=== PATIENT | female | born 1950 | race Two or more races ===

== ENCOUNTER 2025-02-05 22:22 | Observation (INO) | payer MEDICARE, SELFPAY ==
--- OUTSIDE RECORDS SUMMARY | 2024-11-10 13:45 | XMS_ITS ---
Author Organization [facility] Address [address] [place], [place] [address] Care Team Providers Care Tissue Rewinder Name Role Phone Lisa Mercado Primary Care Provider [phone] Araceli, Tess Unavailable [phone] REASON FOR VISIT HTN, HLD Social History Sex Assigned At : Social History Observation Description Sex Assigned At Female Encounters Encounter Location Date Provider Diagnosis Main [address] [place], [place] [id number] 11/10/2024 Lisa Mercado Plan Of Treatment No Information Progress Notes * Mary Lou DORSEYDOB:0 1950 (75 yo F)Acc No.[id number]:11/10/2024 Medical Note Patient: Rosa KHAN Mary Lou NUNEZ Provider: Annelise Mercado MD :1950 A ge:74 Y S ex:Female Date:11/10/2024 Address:[address] [place], [place] [address] Subjective: * Chief Complaints: * 1 . HTN, HLD. * Medical History: Objective: * Vitals: Assessment: Plan: * Treatment: * Billing Information: * Visit Code: * Procedure Codes: * Electronic signature of Jay Mercado MD on 02/06/2025 at 02:00 PM EDT Sign off status: Pending * Provider: Annelise Mercado MD Date: 0 11/10/2024 Generated for Emily winter/Sinai/Vickie on: 0 02/06/2025 02:00 PM EDT
--- OUTSIDE RECORDS SUMMARY | 2025-01-21 12:00 | XMS_ITS | Encounter Summary ---
Author Organization [facility] Address [address] [place] [address] Care Team Providers Care Continuous Miner Name Role Phone Lin Vega MD Unavailable Rosmery Hernandez DO Primary Care Provider [phone] Reason for Visit * Rehabilitation - Outpatient (Routine) - Authorized Specialty Diagnoses / Procedures Referred By Isidro cortez Referred To Contact Physical Therapy Diagnoses Primary osteoarthritis of left knee Procedures [place] OFFICE/OUTPATIENT [facility] MDM 60 MINUTES Hunter Winters, PORTABLE MACHINE CUTTER [address] [place] [address] Phone: tel: fax: Antonette Li, PT [address] [facility] [address] [place] [address] Phone: tel: fax: Referral ID Status Reason Start Date Expiration Date Visits Requested Visits Authorized [id number] Authorized Specialty Services Required 12/08/2024 07/08/2025 99 99 Encounter Details Date Type Department Care Team (Latest Contact Info) Description 01/21/2025 12:00 PM EDT Clinical Support SERJIO Cortes Physical Therapy Home Health [address] [facility] [address] [place] [address] Antonette Li, PT [address] [facility] [address] [place] [address] Primary osteoarthritis of left knee (Primary Dx); Acute postoperative pain of left knee; Status post left knee replacement Social History Tobacco Use Types Packs/Day Years Used Date Smoking Tobacco: Never Smokeless Tobacco: Never Alcohol Use Standard Drinks/Week Comments Not Currently 0 (1 standard drink = 0.6 oz pur e alcohol) Comments Unknown Sex and Gender Information Value Date Recorded Sex Assigned at Not on file Legal Sex Female 8:25 PM EDT Gender Identity Not on file Sexual Orientation Not on file documented as of this encounter Progress Notes * Antonette Li, PT - 01/21/2025 12:00 PM EDT Physical Therapy Physical Therapy Daily Visit Patient Name: Mary Lou Russell Today's Date: 01/21/2025 Subjective Current Problem: s/p left TKA with pain and difficulty walking. Pt is being seen today for follow up visit for s/p left TKA. Date of Surgery: 01/05/25 with three night stay. Current deficits: Difficulty with all mobility secondary to recent left TKA and pain. Visit Number 5 Time In: 11:50 am; Time out: 12:45 pm Total time: 55 minutes 45773 TherEx x 30 minutes 99703 gait training x 25 minutes Precautions: WBAT left LE; left TKA protocol Pain Management: The patient is complaining of pain located in the left knee and thigh region. Painrating 5/10. The pain is improved by ice and medication 1 every 6 hours of percocet and Tylenol as needed. The pain is aggravated by activity. The pain is described as aching, throbbing and stiffness. Prior level of function: Ambulation: antalgic gait pattern on left LE. Assistive devices: FWW,, raised toilet seat ADL and IADL: Independent. Home Environment: Pt lives with her family in a 2 level home with 5-6 steps to enter with railing. Family assisting as needed. Staying on first floor during recovery. Has walk in shower. 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 Joint play: hypomobile. Manual muscle testing: Left knee flexion/extension: 3-/5. Palpation: Minimal warmth upon palpation,consistent with post-operative conditions. Surgical incision intact with alex; dressing removed and inspected with no drainage on dressing. New island dressing applied. Assisted with TEDS on. Special tests: Negative Nazia Sign. Functional Mobility: Bed Mobility: SBA Sit to Stand: SBA Stair Negotiation: CGA/SBA Ambulation: Patient is ambulating with mild antalgic type pattern with FWW, uneven reciprocal gait pattern; good heel to toe gait pattern; SBA. Pt ambulated approx 200' x 2 with slow colette. Limitedknee flexion during swing phase. Tinetti Gait and Balance Assessment: Sitting balance: Steady, safe = 1. Rises from chair: use of hands= 1. Attempts to rise: needed a few trials= 1. Immediate standing balance (first 5 seconds): Steady but uses walker or other support = 1. Standing balance: Steady but uses walker or other support = 1. Nudged: Staggers, grabs, catches self = 1. Eyes closed: Steady = 1. Turning 360 degrees: Discontinuous steps = 0 , Unsteady (grabs, staggers) = 0. Sitting down: Uses arms or not a smooth motion = 1. Balance Score: 8/16. Indication of gait: No hesitancy = 1. Step of length and height: Step to = 0. Foot clearance: L foot clears floor = 1 , R foot clears floor = 1. Step symmetry: Right and left step length no equal = 0. Step continuity: Stopping or discontinuity between steps = 0. Path: Mild/moderate deviation or uses w/ aid = 1. Trunk: No sway but flex knees or back or uses arms for stability = 1. Walking time: Heels apart = 0. Gait score: /12. Total Score = Balance + Gait 13/28. Tinetti tool score: < = 18 High. Physical Education Intervention Physical Therapy Education: Pt was educated on the importance of cyrotherapy and elevation. Reviewed proper pillow placement under LE to maintain good extension. Stressed the importance also of ambulating at at least every other hour for 2-5 minutes duration and completion of HEP 2x/day. Patient was educated with regards to signs and symptoms to monitor with respect to blood clots and infection. Therapeutic Exercise : Pt completed left LE supine exercises of glut sets, quad sets, and ankle pumps (hourly) at this time, AAROM heel slides and hip abduction/adduction. Completed seated heel slides with plastic bag, 10x. Completed standing heel raises, left marches and hip abduction, and ham curls. Completed seated AAROM LAQ of 3 sets of 3 reps. Completed static knee extension on chair x 4 minutes. HEP reviewed and up dated Gait Training: Gait training this date with FWW with instruction for step to gait pattern for left affective LE with increase cues for heel to toe pattern and knee flexion during swing. Provided visual cues for trialing more reciprocal gait pattern; overall demonstrated with fair carryover; will continue to practice. Worked on stair climbing this date up/down stairs of home to second level were her bedroom is. Pt demonstrated CGA with cues with use of HR and step to gait pattern. Worked on walking with one handed support along kitchen counter; patient very hesitant but will continue to practice. Therapeutic Activity: Worked on proper sit to stand, stand to sit transfers this date from reclinerwith good carryover with SBA with verbal and visual cues for proper sequencing and hand placement. Worked on getting in/out of bed this date with visual and verbal cues; continues to need min A with left LE. Assessment & Plan Assessment Impairments: abnormal gait, abnormal or restricted ROM, impaired balance, impaired physical strength, pain with function and weight-bearing intolerance Barriers to therapy: Increased pain, edema,bruising and knee weakness. Prognosis: good Goals Short Term Goals Goal 1 : Patient will be independent with HEP with good compliance and independence. Goal 2 : Patient will demonstrate 5-90 degrees of passive range of motion of left knee flexion. Goal 3 : Patient will ambulate >6 minutes modified independently with wheeled walker with good reciprocal gait pattern. Goal 4 : Patient will demonstrate all sit< >stand transfers and supine< >sit bed mobility, modified independent with no cues for proper sequencing. Goal 5 : Patient will ascend/descend 6 steps with AD with supervision, step to gait pattern. Mcfp Goals Goal 1 : Patient will demonstrate 0-110 degrees or greater of active left knee flexion in order to improve indpendence with ambulation up and down steps. Goal 2 : Patient will demonstrate 4+/5 or better left knee strength in order to safely return to activities of interest. Goal 3 : Patient will ambulate community distances on even and uneven surfaces, independently with no AD, normalized gait pattern and < 1/10 report of pain in left knee. Goal 4 : Pt will ascend/descend 6-12 steps with railing with reciprical gait pattern independently. Goal 5 : Patient will demonstrate good static and dynamic standing balance for >15 mintues without LOB or increase in knee pain. Goal 6 : Pt will improve Tinetti Balance test to 28/28 to indicate no fall risk. Plan Planned modality interventions: cryotherapy Planned therapy interventions: bed mobility training, dressing changes, functional ROM exercises, gait training, home exercise program, manual therapy, neuromuscular re-education, soft tissue mobilization, strengthening, stretching, therapeutic activities and transfer training Frequency: 3x/week. Duration in weeks: 6 Treatment plan discussed with: patient Plan details: Educated to continue icing and elevating. Pt will continues to benefit from PT interventions to improve overall strength, ROM and functional mobility to achieve PLOF. documented in this encounter Plan of Treatment Upcoming Encounters Date Type Department Care Team (Late st Contact Info) Description 02/11/2025 10:00 AM EDT Treatment [place] [facility] [address] [place] [address] Tracy Villaseñor, JEWELL 02/13/2025 10:30 AM EDT Treatment [place] [address] [place] [address] Jerry Galvin, PT [address] [place] [address] 02/16/2025 10:30 AM EDT Treatment [place] [address] [place] [address] Jerry Galvin, PT [address] [place] [address] 02/16/2025 3:30 PM EDT Office Visit [facility] [address] [place] [address] Hunter Winters, PORTABLE MACHINE CUTTER [address] [place] [address] 02/19/2025 10:30 AM EDT Treatment [facility] [address] [place] [address] Christy Meléndez PTA documented as of this encounter Visit Diagnoses Diagnosis Primary osteoarthritis of left knee- Primary Acute postoperative pain of left knee Status post left knee replacement documented in this encounter Care Teams Continuous Miner Relationship Specialty Start Date End Date Rosmery Hernandez DO [address] [place], [place] [id number] PCP - General Family Medicine 08/14/23 Lin Vega MD [address] [place], [place] [id number] Referring Physician Family Medicine 08/14/23 documented as of this encounter
--- OUTSIDE RECORDS SUMMARY | 2025-01-21 12:00 | XMS_ITS | Encounter Summary ---
Author Organization [facility] Address [address] [place] [address] Care Team Providers Care Adjunct Phlebotomy Instructor Name Role Phone Lin Vega MD Unavailable Rosmery Hernandez DO Primary Care Provider [phone] Reason for Visit * Rehabilitation - Outpatient (Routine) - Authorized Specialty Diagnoses / Procedures Referred By Isidro cortez Referred To Contact Physical Therapy Diagnoses Primary osteoarthritis of left knee Procedures [place] OFFICE/OUTPATIENT [facility] MDM 60 MINUTES Hunter Winters, REFUELING RAMP ATTENDANT [address] [place] [address] Phone: tel: fax: Antonette Li, PT [address] [facility] [address] [place] [address] Phone: tel: fax: Referral ID Status Reason Start Date Expiration Date Visits Requested Visits Authorized [id number] Authorized Specialty Services Required 12/08/2024 07/08/2025 99 99 Encounter Details Date Type Department Care Team (Latest Contact Info) Description 01/21/2025 12:00 PM EDT Clinical Support SERJIO Cortes Physical Therapy Home Health [address] [facility] [address] [place] [address] Antonette Li, PT [address] [facility] [address] [place] [address] Primary osteoarthritis of left knee (Primary Dx); [...] out: 12:45 pm Total time: 55 minutes 87852 TherEx x 30 minutes 92812 gait training x 25 minutes Precautions: WBAT [...] shower. 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 Residential Goals Goal 1 : Patient will demonstrate [...] Info) Description 02/11/2025 10:00 AM EDT Treatment [place] [address] [place] [address] Tracy Villaseñor, JEWELL 02/13/2025 10:30 AM EDT Treatment [place] [address] [place] [address] Jerry Galvin, PT [address] [place] [address] 02/16/2025 10:30 AM EDT Treatment [place] [address] [place] [address] Jerry Galvin, PT [address] [place] [address] 02/16/2025 3:30 PM EDT Office Visit [facility]opa[facility] [address] [place] [address] Hunter Winters, REFUELING RAMP ATTENDANT [address] [place] [address] 02/19/2025 10:30 AM EDT Treatment [facility] [address] [place] [address] Christy Meléndez PTA documented as of this encounter Visit Diagnoses Diagnosis Primary osteoarthritis of left knee- Primary Acute postoperative pain of left knee Status post left knee replacement documented in this encounter Care Teams Adjunct Phlebotomy Instructor Relationship Specialty Start Date End Date Rosmery Hernandez DO [address] [place], [place] [phone] PCP - General Family Medicine 08/14/23 Lin Vega MD [address] [place], [place] [address] Referring Physician Family Medicine 08/14/23 documented as of this encounter
--- OUTSIDE RECORDS SUMMARY | 2025-01-23 10:00 | XMS_ITS | Encounter Summary ---
Author Organization [facility] Address [address] [place] [address] Care Team Providers Care Stamping Mill Tender Name Role Phone Lin Vega MD Unavailable Rosmery Hernandez DO Primary Care Provider [phone] Reason for Visit * Rehabilitation - Outpatient (Routine) - Authorized Specialty Diagnoses / Procedures Referred By Isidro cortez Referred To Contact Physical Therapy Diagnoses Primary osteoarthritis of left knee Procedures [place] OFFICE/OUTPATIENT [facility] MDM 60 MINUTES Hunter Winters, FURNACE LOADER [address] [place] [address] Phone: tel: fax: Antonette Li, PT [address] [facility] [address] [place] [address] Phone: tel: fax: Referral ID Status Reason Start Date Expiration Date Visits Requested Visits Authorized [id number] Authorized Specialty Services Required 12/08/2024 07/08/2025 99 99 Encounter Details Date Type Department Care Team (Latest Contact Info) Description 01/23/2025 10:00 AM EDT Clinical Support SERJIO Cortes Physical Therapy Home Health [address] [facility] [address] [place] [address] Antonette Li, PT [address] [facility] [address] [place] [address] Primary osteoarthritis of left knee (Primary Dx); [...] Progress Notes * Antonette Li, PT - 01/23/2025 10:00 AM EDT Physical Therapy Physical Therapy Daily Visit Patient Name: Mary Lou Russell Today's Date: 01/23/2025 Subjective Current Problem: s/p left TKA with pain and difficulty walking. Pt is being seen today for follow up visit for s/p left TKA. Date of Surgery: 01/05/25 with three night stay. Current deficits: Difficulty with all mobility secondary to recent left TKA and pain. Visit Number 7 Time In: 10:00 am; Time out: 10:45 am Total time: 45 minutes 08469 TherEx x 30 minutes 64026 gait training x 15 minutes Precautions: WBAT left LE; left TKA [...] shower. 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 Joint play: hypomobile. Manual muscle testing: Left knee flexion/extension: 3-/5. Palpation: Minimal warmth upon palpation,consistent with post-operative conditions. Surgical incision intact with sterile strips and open toair. Assisted with TEDS on. Special tests: Negative [...] time: Heels apart = 0. Gait score: 5/12. Total Score = Balance + Gait 13/28. [...] AD with supervision, step to gait pattern. [facility] Goals Goal 1 : Patient will demonstrate [...] Info) Description 02/11/2025 10:00 AM EDT Treatment [facility] [address] [place] [address] Tracy Villaseñor PTA 02/13/2025 10:30 AM EDT Treatment [facility] [address] [place] [address] Jerry Galvin, PT [address] [place] [address] 02/16/2025 10:30 AM EDT Treatment [facility] [address] [place] [address] Jerry Galvin, PT [address] [place] [address] 02/16/2025 3:30 PM EDT Office Visit [facility] [address] [place] [address] Hunter Winters, FURNACE LOADER [address] [place] [address] 02/19/2025 10:30 AM EDT [facility] [address] [place] [address] Christy Meléndez PTA documented as of this encounter Visit Diagnoses Diagnosis Primary osteoarthritis of left knee- Primary Acute postoperative pain of left knee Status post left knee replacement documented in this encounter Care Teams Stamping Mill Tender Relationship Specialty Start Date End Date Rosmery Hernandez DO [address] [place], [place] [phone] PCP - General Family Medicine 08/14/23 Lin Vega MD [address] [place], [place] [address] Referring Physician Family Medicine 08/14/23 documented as of this encounter
--- OUTSIDE RECORDS SUMMARY | 2025-01-23 10:00 | XMS_ITS | Encounter Summary ---
Author Organization [facility] Address [address] [place] [address] Care Team Providers Care Numberer And Wirer Name Role Phone Lin Vega MD Unavailable Rosmery Hernandez DO Primary Care Provider [phone] Reason for Visit * Rehabilitation - Outpatient (Routine) - Authorized Specialty Diagnoses / Procedures Referred By Isidro cortez Referred To Contact Physical Therapy Diagnoses Primary osteoarthritis of left knee Procedures CT OFFICE/OUTPATIENT [facility] MDM 60 MINUTES Hunter Winters, HOP GROWER [address] [place] [address] Phone: tel: fax: Antonette Li, PT [address] [facility] [address] [place] [address] Phone: tel: fax: Referral ID Status Reason Start Date Expiration Date Visits Requested Visits Authorized [id number] Authorized Specialty Services Required 12/08/2024 07/08/2025 99 99 Encounter Details Date Type Department Care Team (Latest Contact Info) Description 01/23/2025 10:00 AM EDT Clinical Support SERJIO Cortes Physical Therapy Home Health [address] [facility] [address] [place] [address] Antonette Li, PT [address] [facility] [address] [place] [address] Primary osteoarthritis of left knee (Primary Dx); [...] out: 10:45 am Total time: 45 minutes 43020 TherEx x 30 minutes 66102 gait training x 15 minutes Precautions: WBAT [...] shower. 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 Objective General Visit Information: Passive ROM: Left [...] Info) Description 02/11/2025 10:00 AM EDT Treatment [facility] [address] [place] [address] Tracy Villaseñor PTA 02/13/2025 10:30 AM EDT Treatment [facility] [address] [place] [address] Jerry Galvin, PT [address] [place] [address] 02/16/2025 10:30 AM EDT Treatment [facility] [address] [place] [address] Jerry Galvin, PT [address] [place] [address] 02/16/2025 3:30 PM EDT Office Visit [facility]opa[facility] [address] [place] [address] Hunter Winters, HOP GROWER [address] [place] [address] 02/19/2025 10:30 AM EDT [facility] [address] [place] [address] Christy Meléndez PTA documented as of this encounter Visit Diagnoses Diagnosis Primary osteoarthritis of left knee- Primary Acute postoperative pain of left knee Status post left knee replacement documented in this encounter Care Teams Numberer And Wirer Relationship Specialty Start Date End Date Rosmery Hernandez DO [address] [place], [place] [address] PCP - General Family Medicine 08/14/23 Lin Vega MD [address] [place], [place] [id number] Referring Physician Family Medicine 08/14/23 documented as of this encounter
--- OUTSIDE RECORDS SUMMARY | 2025-01-26 11:00 | XMS_ITS | Encounter Summary ---
Author Organization [facility] Address [address] [place] [address] Care Team Providers Care Carpentry Instructor Name Role Phone Lin Vega MD Unavailable Rosmery Hernandez DO Primary Care Provider [phone] Reason for Visit * Rehabilitation - Outpatient (Routine) - Authorized Specialty Diagnoses / Procedures Referred By Isidro cortez Referred To Contact Physical Therapy Diagnoses Primary osteoarthritis of left knee Procedures [place] OFFICE/OUTPATIENT [facility] MDM 60 MINUTES Hunter Winters, TECHNOLOGY STRATEGIST [address] [place] [address] Phone: tel: fax: Antonette Li, PT [address] [facility] [address] [place] [address] Phone: tel: fax: Referral ID Status Reason Start Date Expiration Date Visits Requested Visits Authorized [id number] Authorized Specialty Services Required 12/08/2024 07/08/2025 99 99 Encounter Details Date Type Department Care Team (Latest Contact Info) Description 01/26/2025 11:00 AM EDT Clinical Support SERJIO Cortes Physical Therapy Home Health [address] [facility] [address] [place] [address] Antonette Li, PT [address] [facility] [address] [place] [address] Primary osteoarthritis of left knee (Primary Dx); [...] Progress Notes * Antonette Li, PT - 01/26/2025 11:00 AM EDT Physical Therapy Physical Therapy Daily Visit Patient Name: Mary Lou Russell Today's Date: 01/26/2025 Subjective Current Problem: s/p left TKA with pain and difficulty walking. Pt is being seen today for follow up visit for s/p left TKA. Date of Surgery: 01/05/25 with three night stay. Current deficits: Difficulty with all mobility secondary to recent left TKA and pain. Visit Number 8 Time In: 11:00 am; Time out: 11:45 am Total time: 45 minutes 75391 TherEx x 30 minutes 39145 gait training x 15 minutes Precautions: WBAT left LE; left TKA protocol Pain Management: The patient is complaining of pain located in the left knee and thigh region. Painrating 5/10. The pain is improved by ice and medication 1 every 8 hours of percocet and Tylenol as needed. [...] shower. 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 Joint play: hypomobile. Manual muscle testing: Left knee flexion/extension: 3/5. Palpation: Minimal warmth upon palpation, consistent with post-operative conditions. Surgical incision intact with sterile strips and open to air. Assisted with TEDS on. Special tests: Negative Nazia Sign. Functional Mobility: Bed Mobility: SBA Sit to Stand: SBA Stair Negotiation: SBA Ambulation: Patient is ambulating with mild antalgic [...] carryover; will continue to practice. Worked on walking with one handed support along kitchen counter; patient less hesitant and noted more confident with reciprocal gait pattern. Therapeutic Activity: Worked on proper sit to stand, stand to sit transfers this date from reclinerwith good carryover with SBA with verbal and visual cues for proper sequencing and hand placement. Assessment & Plan Assessment Impairments: abnormal gait, [...] AD with supervision, step to gait pattern. Inspector Ball Points Goals Goal 1 : Patient will demonstrate [...] Info) Description 02/11/2025 10:00 AM EDT Treatment [facility] [address] [address] Tracy Villaseñor, JEWELL 02/13/2025 10:30 AM EDT Treatment [facility] [address] [place] [address] Jerry Galvin, PT [address] [facility] [place] [address] 02/16/2025 10:30 AM EDT Treatment [facility] [address] [place] [address] Jerry Galvin, PT [address] [facility] [place] [address] 02/16/2025 3:30 PM EDT Office Visit [facility] Orthopa[facility]ics [address] [place] [address] Hunter Winters, TECHNOLOGY STRATEGIST [address] [facility] [place] [address] 02/19/2025 10:30 AM EDT Treatment [facility] [address] [place] [address] Christy Meléndez, ANALOG IC DESIGN ARCHITECT documented as of this encounter Visit Diagnoses Diagnosis Primary osteoarthritis of left knee- Primary Acute postoperative pain of left knee Status post left knee replacement documented in this encounter Care Teams Carpentry Instructor Relationship Specialty Start Date End Date Rosmery Hernandez DO [address] [place], [place] [id number] PCP - General Family Medicine 08/14/23 Lin Vega MD [address] [place], [place] [id number] Referring Physician Family Medicine 08/14/23 documented as of this encounter
--- OUTSIDE RECORDS SUMMARY | 2025-01-26 11:00 | XMS_ITS | Encounter Summary ---
Author Organization [facility] Address [address] [place] [address] Care Team Providers Care Data Processing Mechanic Name Role Phone Lin Vega MD Unavailable Rosmery Hernandez DO Primary Care Provider [phone] Reason for Visit * Rehabilitation - Outpatient (Routine) - Authorized Specialty Diagnoses / Procedures Referred By Isidro cortez Referred To Contact Physical Therapy Diagnoses Primary osteoarthritis of left knee Procedures [place] OFFICE/OUTPATIENT [facility] MDM 60 MINUTES Hunter Winters, DATA ADMINISTRATOR [address] [place] [address] Phone: tel: fax: Antonette Li, PT [address] [facility] [address] [place] [address] Phone: tel: fax: Referral ID Status Reason Start Date Expiration Date Visits Requested Visits Authorized [id number] Authorized Specialty Services Required 12/08/2024 07/08/2025 99 99 Encounter Details Date Type Department Care Team (Latest Contact Info) Description 01/26/2025 11:00 AM EDT Clinical Support SERJIO Cortes Physical Therapy Home Health [address] [facility] 150 [place] [address] Antonette Li, PT [address] [facility] 150 [place] [address] Primary osteoarthritis of left knee (Primary Dx); [...] out: 11:45 am Total time: 45 minutes 85128 TherEx x 30 minutes 85534 gait training x 15 minutes Precautions: WBAT [...] shower. 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 Signing Agent Goals Goal 1 : Patient will demonstrate [...] Info) Description 02/11/2025 10:00 AM EDT Treatment [facility] [address] [facility] [place] [address] Tracy Villaseñor, JEWELL 02/13/2025 10:30 AM EDT Treatment [facility] [address] [facility] [place] [address] Jerry Galvin, PT [address] [facility] [place] [address] 02/16/2025 10:30 AM EDT Treatment [facility] [address] [facility] [place] [address] Jerry Galvin, PT [address] [place] [address] 02/16/2025 3:30 PM EDT Office Visit [facility] Orthopaedics [address] [facility] [place] [address] Hunter Winters, DATA ADMINISTRATOR [address] [facility] [place] [address] 02/19/2025 10:30 AM EDT Treatment [facility] [address] [place] [address] Christy Meléndez, DONOR SUPPORT TECHNICIAN documented as of this encounter Visit Diagnoses Diagnosis Primary osteoarthritis of left knee- Primary Acute postoperative pain of left knee Status post left knee replacement documented in this encounter Care Teams Data Processing Mechanic Relationship Specialty Start Date End Date Rosmery Hernandez DO [address] [place], [place] [id number] PCP - General Family Medicine 08/14/23 Lin Vega MD [address] [place], [place] [id number] Referring Physician Family Medicine 08/14/23 documented as of this encounter
--- OUTSIDE RECORDS SUMMARY | 2025-01-28 11:00 | XMS_ITS | Encounter Summary ---
Author Organization [facility] Address [address] [place] [address] Care Team Providers Care Technology Administrator Name Role Phone Lin Vega MD Unavailable Rosmery Hernandez DO Primary Care Provider [phone] Reason for Visit * Rehabilitation - Outpatient (Routine) - Authorized Specialty Diagnoses / Procedures Referred By Isidro cortez Referred To Contact Physical Therapy Diagnoses Primary osteoarthritis of left knee Procedures [place] OFFICE/OUTPATIENT [facility] MDM 60 MINUTES Hunter Winters, PARTY SUPPLY SPECIALIST [address] [place] [address] Phone: tel: fax: Antonette Li, PT [address] [facility] [address] [place] [address] Phone: tel: fax: Referral ID Status Reason Start Date Expiration Date Visits Requested Visits Authorized [id number] Authorized Specialty Services Required 12/08/2024 07/08/2025 99 99 Encounter Details Date Type Department Care Team (Latest Contact Info) Description 01/28/2025 11:00 AM EDT Clinical Support SERJIO Cortes Physical Therapy Home Health [address] [facility] 150 [place] [address] Antonette Li, PT [address] [facility] [address] [place] [address] Primary osteoarthritis of left knee (Primary Dx); [...] Progress Notes * Antonette Li, PT - 01/28/2025 11:00 AM EDT Physical Therapy Physical Therapy Daily Visit Patient Name: aMry Lou Russell Today's Date: 01/26/2025 Subjective Current Problem: s/p left TKA with pain and difficulty walking. Pt is being seen today for follow up visit for s/p left TKA. Date of Surgery: 01/05/25 with three night stay. Current deficits: Difficulty with all mobility secondary to recent left TKA and pain. Visit Number 9 Time In: 11:00 am; Time out: 11:45 am Total time: 45 minutes 88101 TherEx x 30 minutes 30052 gait training x 15 minutes Precautions: WBAT [...] shower. 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 Added floor bike x 3 minutes. HEP reviewed and updated. Gait Training: Gait training this date with [...] AD with supervision, step to gait pattern. Nursing Home Goals Goal 1 : Patient will demonstrate [...] Info) Description 02/11/2025 10:00 AM EDT Treatment [place] [address] [place] [address] Tracy Villaseñor, JEWELL 02/13/2025 10:30 AM EDT Treatment [facility] [address] [place] [address] Jerry Galvin, PT [address] [place] [address] 02/16/2025 10:30 AM EDT Treatment [facility] [address] [place] [address] Jerry Galvin, PT [address] [place] [address] 02/16/2025 3:30 PM EDT [facility] [address] [place] [address] Hunter Winters, PARTY SUPPLY SPECIALIST [address] [facility] [place] [address] 02/19/2025 10:30 AM EDT Treatment [place] [address] [place] [address] Christy Meléndez, PIE FILLER documented as of this encounter Visit Diagnoses Diagnosis Primary osteoarthritis of left knee- Primary Acute postoperative pain of left knee Status post left knee replacement documented in this encounter Care Teams Technology Administrator Relationship Specialty Start Date End Date Rosmery Hernandez DO [address] [place], [place] [phone] PCP - General Family Medicine 08/14/23 Lin Vega MD [address] [place], [place] [phone] Referring Physician Family Medicine 08/14/23 documented as of this encounter
--- OUTSIDE RECORDS SUMMARY | 2025-01-28 11:00 | XMS_ITS | Encounter Summary ---
Author Organization [facility] Address [address] [place] [address] Care Team Providers Care Electrical Troubleshooter Name Role Phone Lin Vega MD Unavailable Rosmery Hernandez DO Primary Care Provider [phone] Reason for Visit * Rehabilitation - Outpatient (Routine) - Authorized Specialty Diagnoses / Procedures Referred By Isidro cortez Referred To Contact Physical Therapy Diagnoses Primary osteoarthritis of left knee Procedures [place] OFFICE/OUTPATIENT [facility] MDM 60 MINUTES Hunter Winters, HUMAN RESOURCES ADVISOR [address] [place] [address] Phone: tel: fax: Antonette Li, PT [address] [facility] [address] [place] [address] Phone: tel: fax: Referral ID Status Reason Start Date Expiration Date Visits Requested Visits Authorized [id number] Authorized Specialty Services Required 12/08/2024 07/08/2025 99 99 Encounter Details Date Type Department Care Team (Latest Contact Info) Description 01/28/2025 11:00 AM EDT Clinical Support SERJIO Cortes Physical Therapy Home Health [address] [facility] 150 [place] [address] Antonette Li, PT [address] [facility] [address] [place] [address] Primary osteoarthritis of left knee (Primary Dx); [...] out: 11:45 am Total time: 45 minutes 66749 TherEx x 30 minutes 78863 gait training x 15 minutes Precautions: WBAT [...] shower. 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 [address] 02/16/2025 10:30 AM EDT Treatment [facility] [address] [place] [address] Jerry Galvin, PT [address] [place] [address] 02/16/2025 3:30 PM EDT Office Visit [facility] Orthopaedics [address] [place] [address] Hunter Winters, HUMAN RESOURCES ADVISOR [address] [facility] [place] [address] 02/19/2025 10:30 AM EDT Treatment [place] [address] [place] [address] Christy Meléndez, COST SPECIALIST documented as of this encounter Visit Diagnoses Diagnosis Primary osteoarthritis of left knee- Primary Acute postoperative pain of left knee Status post left knee replacement documented in this encounter Care Teams Electrical Troubleshooter Relationship Specialty Start Date End Date Rosmery Hernandez DO [address] [place], [place] [phone] PCP - General Family Medicine 08/14/23 Lin Vega MD [address] [place], [place] [address] Referring Physician Family Medicine 08/14/23 documented as of this encounter
--- OUTSIDE RECORDS SUMMARY | 2025-01-30 11:00 | XMS_ITS | Encounter Summary ---
Author Organization [facility] Address [address] [place] [address] Care Team Providers Care Mergers And Acquisitions Consultant Name Role Phone Lin Vega MD Unavailable Rosmery Hernandez DO Primary Care Provider [phone] Reason for Visit * Rehabilitation - Outpatient (Routine) - Authorized Specialty Diagnoses / Procedures Referred By Isidro cortez Referred To Contact Physical Therapy Diagnoses Primary osteoarthritis of left knee Procedures [place] OFFICE/OUTPATIENT [facility] MDM 60 MINUTES Hunter Winters, ROUTE SALES SPECIALIST [address] [place] [address] Phone: tel: fax: Antonette Li, PT [address] [facility] [address] [place] [address] Phone: tel: fax: Referral ID Status Reason Start Date Expiration Date Visits Requested Visits Authorized [id number] Authorized Specialty Services Required 12/08/2024 07/08/2025 99 99 Encounter Details Date Type Department Care Team (Latest Contact Info) Description 01/30/2025 11:00 AM EDT Clinical Support SERJIO Cortes Physical Therapy Home Health [address] [facility] 150 [place] [address] Antonette Li, PT [address] [facility] [address] [place] [address] Primary osteoarthritis of left knee (Primary Dx); [...] Progress Notes * Antonette Li, PT - 01/30/2025 11:00 AM EDT Physical Therapy Physical Therapy Daily Visit Patient Name: Mary Lou Russell Today's Date: 01/30/2025 Subjective Current Problem: s/p left TKA with pain and difficulty walking. Pt is being seen today for follow up visit for s/p left TKA. Date of Surgery: 01/05/25 with three night stay. Current deficits: Difficulty with all mobility secondary to recent left TKA and pain. Visit Number 10 Time In: 11:00 am; Time out: 11:45 am Total time: 45 minutes 89955 TherEx x 30 minutes 62880 gait training x 15 minutes Precautions: WBAT left LE; left TKA protocol Pain Management: The patient is complaining of pain located in the left knee and thigh region. Painrating 4/10. The pain is improved by ice and [...] shower. 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 Joint play: hypomobile. Manual muscle testing: [...] Completed static knee extension on chair x 10 minutes. Completed floor bike x 5 minutes. HEP reviewed and updated. Gait Training: [...] noted more confident with reciprocal gait pattern. Pt ambulated around home with some hesitation with str cane, close SBA with good two point gait pattern for 300' x 3. Therapeutic Activity: Worked on proper sit to stand, stand to sit transfers this date from reclinerwith good carryover with Supervision with verbal and visual cues for proper [...] AD with supervision, step to gait pattern. Retirement Goals Goal 1 : Patient will demonstrate [...] Pt will improve Tinetti Balance test to to indicate no fall risk. Plan Planned [...] ROM and functional mobility to achieve PLOF. Pt to transition to OP next week to [facility]. documented in this encounter Plan of Treatment Upcoming Encounters Date Type Department Care Team (Late st Contact Info) Description 02/11/2025 10:00 AM EDT Treatment [facility] [address] [place] [address] Tracy Villaseñor PTA 02/13/2025 10:30 AM EDT Treatment [facility] [address] [place] [address] Jerry Galvin, PT [address] [place] [address] 02/16/2025 10:30 AM EDT Treatment [facility] [address] [place] [address] Jerry Galvin, PT [address] [facility] [address] 02/16/2025 3:30 PM EDT Office Visit [facility] Orthopaedics [address] [facility] [address] Hunter Winters, ROUTE SALES SPECIALIST [address] [place] [address] 02/19/2025 10:30 AM EDT Treatment [facility] [address] [place] [address] Christy Meléndez PTA documented as of this encounter Visit Diagnoses Diagnosis Primary osteoarthritis of left knee- Primary Acute postoperative pain of left knee Status post left knee replacement documented in this encounter Care Teams Mergers And Acquisitions Consultant Relationship Specialty Start Date End Date Rosmery Hernandez DO [address] [place], [place] [phone] PCP - General Family Medicine 08/14/23 Lin Vega MD [address] [place], [place] [address] Referring Physician Family Medicine 08/14/23 documented as of this encounter
--- OUTSIDE RECORDS SUMMARY | 2025-01-30 11:00 | XMS_ITS | Encounter Summary ---
Author Organization [facility] Address [address] [place] [address] Care Team Providers Care Painting Department Supervisor Name Role Phone Lin Vega MD Unavailable Rosmery Hernandez DO Primary Care Provider [phone] Reason for Visit * Rehabilitation - Outpatient (Routine) - Authorized Specialty Diagnoses / Procedures Referred By Isidro cortez Referred To Contact Physical Therapy Diagnoses Primary osteoarthritis of left knee Procedures [place] OFFICE/OUTPATIENT [facility] MDM 60 MINUTES Hunter Winters, STATE EPIDEMIOLOGIST [address] [place] [address] Phone: tel: fax: Antonette Li, PT [address] [facility] [address] [place] [address] Phone: tel: fax: Referral ID Status Reason Start Date Expiration Date Visits Requested Visits Authorized [id number] Authorized Specialty Services Required 12/08/2024 07/08/2025 99 99 Encounter Details Date Type Department Care Team (Latest Contact Info) Description 01/30/2025 11:00 AM EDT Clinical Support SERJIO Cortes Physical Therapy Home Health [address] [facility] 150 [place] [address] Antonette Li, PT [address] [facility] 150 [place] [address] Primary osteoarthritis of left knee (Primary Dx); [...] out: 11:45 am Total time: 45 minutes 22770 TherEx x 30 minutes 80391 gait training x 15 minutes Precautions: WBAT [...] shower. 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 Longterm Goals Goal 1 : Patient will demonstrate [...] to transition to OP next week to [facility]. documented in this encounter Plan of Treatment Upcoming Encounters Date Type Department Care Team (Late st Contact Info) Description 02/11/2025 10:00 AM EDT Treatment [facility] [address] [place] [address] Tracy Villaseñor PTA 02/13/2025 10:30 AM EDT Treatment [facility] [address] [place] [address] Jerry Galvin, PT [address] [place] [address] 02/16/2025 10:30 AM EDT Treatment [facility] [address] [place] [address] Jerry Galvin, PT [address] [facility] [address] 02/16/2025 3:30 PM EDT Office Visit [facility] Orthopaedics [address] [facility] [address] Hunter Winters, STATE EPIDEMIOLOGIST [address] [place] [address] 02/19/2025 10:30 AM EDT Treatment [facility] [address] [place] [address] Christy Meléndez PTA documented as of this encounter Visit Diagnoses Diagnosis Primary osteoarthritis of left knee- Primary Acute postoperative pain of left knee Status post left knee replacement documented in this encounter Care Teams Painting Department Supervisor Relationship Specialty Start Date End Date Rosmery Hernandez DO [address] [place], [place] [address] PCP - General Family Medicine 08/14/23 Lin Vega MD [address] [place], [place] [phone] Referring Physician Family Medicine 08/14/23 documented as of this encounter
--- OUTSIDE RECORDS SUMMARY | 2025-02-03 16:00 | XMS_ITS | Encounter Summary ---
Author Organization [facility] Healthcare Address [address] [place] [address] Care Team Providers Care Brake Assembler Name Role Phone Lin Vega MD Unavailable Rosmery Hernandez DO Primary Care Provider [phone] Reason for Visit * Consultation (Routine) - Authorized Specialty Diagnoses / Procedures Referred By Isidro cortez Referred To Contact Physical Therapy Diagnoses Arthritis of left knee Acute pain of left knee Procedures [place] OFFICE/OUTPATIENT [facility] MDM 60 MINUTES Miles Norman PA Phone: tel: fax: [facility] [address] [place] [address] Referral ID Status Reason Start Date Expiration Date Visits Requested Visits Authorized [id number] Authorized Consult and Treat 10/10/2024 04/08/2025 10 10 Encounter Details Date Type Department Care Team ([facility] Contact Info) Description 02/03/2025 4:00 PM EDT Treatment [facility] [address] [place] [address] Jerry Galvin, PT [address] [place], [place] [id number] Primary osteoarthritis of left knee (Primary Dx); Acute postoperative pain of left knee; Status post total knee replacement, left Social History Tobacco Use Types Packs/Day Years [...] as of this encounter Progress Notes * Jerry Galvin, PT - 02/03/2025 4:00 PM EDT Physical Therapy Physical Therapy Daily Visit Patient Name: Mary Lou Russell Today's Date: 02/03/25 Subjective Current Problem: s/p left TKA with pain and difficulty walking. Pt is being seen today for follow up visit for s/p left TKA. Pt gambian speaking has family member here to translate and went well. Date of Surgery: 01/05/25 with three night stay. Current deficits: Difficulty with all mobility secondary to recent left TKA and pain. Visit Number 11 (10 visits in the home) Time In: 4:00 pm Time out: 4:55 pm Sup time: 45 min Total time: 55 min Precautions: WBAT left LE; left TKA protocol Pain Management: min pain amb into session with FWW has cane with her using both to date. Prior level of function: Ambulation: antalgic gait pattern on left LE. Assistive devices: FWW,, raised toilet seat ADL and IADL: Independent. Home Environment: Pt lives with her family in a 2 level home with 5-6 steps to enter with railing. Family assisting as needed. Staying on first floor during recovery. Has walk in shower. 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 Gait: mod ind with FWW into session, mod ind with cane in clinic mildly antalgic like Physical Education Intervention Physical Therapy Education: Continue HEP, icing/elevation as well, adding longer holds to static flexion stretch x 5 min Therapeutic Exercise : per RONAL grid ROM, flexibility, strength, endurance x 30 min sup, 33 total Added step ups today able to do 6 with some difficulty initially Gait Training: re-add prn with cane vs no AD Therapeutic Activity: re-add PRM Manual therapy: PROM, gentle stretching x 10 min good tolerance overall, kept end range stretching fairly gentle for today. Modalities: CP x 10 min end of session. Assessment & Plan Assessment Progressing well AROM end of session 3-105 Goals Short Term Goals Goal 1 : [...] AD with supervision, step to gait pattern. Supervisor Sulfuric Acid Plant Goals Goal 1 : Patient will demonstrate 0 to at least 110 degrees or greater of active left knee [...] 28/28 to indicate no fall risk. Plan Continue POC progressing RONAL as appropriate documented in this encounter Plan of Treatment Upcoming Encounters Date Type Department Care Team (Late st Contact Info) Description 02/11/2025 10:00 AM EDT Treatment [facility] [address] [place] [address] Tracy Villaseñor PTA 02/13/2025 10:30 AM EDT Treatment [facility] [address] [place] [address] Jerry Galvin, PT [address] [place] [address] 02/16/2025 10:30 AM EDT Treatment [facility] [address] [place] [phone] Jerry Galvin, PT [address] [place], [place] [id number] 02/16/2025 3:30 PM EDT Office Visit [facility] [address] [place] [address] Hunter Winters, BAG MAKING MACHINE TENDER [address] [place] [address] 02/19/2025 10:30 AM EDT Treatment [place] [place] [address] Christy Meléndez PTA documented as of this encounter Visit Diagnoses Diagnosis Primary osteoarthritis of left knee- Primary Acute postoperative pain of left knee Status post total knee replacement, left documented in this encounter Care Teams Brake Assembler Relationship Specialty Start Date End Date Rosmery Hernandez DO [address] [place] [address] PCP - General Family Medicine 08/14/23 Lin Vega MD [address] [place] [address] Referring Physician Family Medicine 08/14/23 documented as of this encounter
--- OUTSIDE RECORDS SUMMARY | 2025-02-03 16:00 | XMS_ITS | Encounter Summary ---
Author Organization [facility] Healthcare Address [address] [place] [address] Care Team Providers Care Light Rail Transit Operator Name Role Phone Lin Vega MD Unavailable Rosmery Hernandez DO Primary Care Provider Reason for Visit * Consultation (Routine) - Authorized Specialty Diagnoses / Procedures Referred By Isidro cortez Referred To Contact Physical Therapy Diagnoses Arthritis of left knee Acute pain of left knee Procedures [place] OFFICE/OUTPATIENT [facility] MDM 60 MINUTES iMles Norman PA Phone: tel: fax: [facility] [address] [place] [address] Referral ID Status Reason Start Date Expiration Date Visits Requested Visits Authorized [id number] Authorized Consult and Treat 10/10/2024 04/08/2025 10 10 Encounter Details Date Type Department Care Team ([facility] Contact Info) Description 02/03/2025 4:[address] [facility] [address] [place] [address] Jerry Galvin, PT [address] [place], [place] [id number] Primary osteoarthritis of left knee (Primary Dx); [...] up visit for s/p left TKA. Pt french speaking has family member here to translate [...] shower. 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 Bowling Alley Attendant Goals Goal 1 : Patient will demonstrate [...] Info) Description 02/11/2025 10:[address] [facility] [address] [place] [address] Tracy Villaseñor PTA 02/13/2025 10:[address] [facility] [address] [place] [address] Jerry Galvin, PT [address] [place] [address] 02/16/2025 10:[address] [facility] [address] [facility] [place] [address] Jerry Galvin, PT [address] [place], [place] [id number] 02/16/2025 3:30 PM EDT Office Visit [facility] Orthopaedics [address] [facility] [place] [address] Hunter Winters, MANUAL TESTER [address] [place] [address] 02/19/2025 10:30 AM EDT Treatment [address] [place] [address] Christy Meléndez PTA documented as of this encounter Visit Diagnoses Diagnosis Primary osteoarthritis of left knee- Primary Acute postoperative pain of left knee Status post total knee replacement, left documented in this encounter Care Teams Light Rail Transit Operator Relationship Specialty Start Date End Date Rosmery Hernandez DO [address] [place] [address] PCP - General Family Medicine 08/14/23 Lin Vega MD [address] [place] [address] Referring Physician Family Medicine 08/14/23 documented as of this encounter
[2025-02-05] VITALS (8 sets, daily range): BP systolic 156–161; BP diastolic 67–80; PULSE 78–98; TEMP 36.6; O2SAT 95–96; BMI 35.3
--- OUTSIDE RECORDS SUMMARY | 2025-02-05 11:30 | XMS_ITS | Encounter Summary ---
Author Organization [facility] Healthcare Address [address] [place] [address] Care Team Providers Care Can Top Setter Name Role Phone Lin Vega MD Unavailable Rosmery Hernandez DO Primary Care Provider [phone] Reason for Visit * Consultation (Routine) - Authorized Specialty Diagnoses / Procedures Referred By Isidro cortez Referred To Contact Physical Therapy Diagnoses Arthritis of left knee Acute pain of left knee Procedures [place] OFFICE/OUTPATIENT [facility] MDM 60 MINUTES Miles Norman PA Phone: tel: fax: [facility] [address] [place] [address] Referral ID Status Reason Start Date Expiration Date Visits Requested Visits Authorized [id number] Authorized Consult and Treat 10/10/2024 04/08/2025 10 10 Encounter Details Date Type Department Care Team ([facility] st Contact Info) Description 2025 11:30 AM EDT Treatment [facility] [address] [place] [phone] Rafia Shields PTA [address] [place] [address] Primary osteoarthritis of left knee (Primary Dx); [...] as of this encounter Progress Notes * Rafia Shields, LIVE AMMUNITION INSPECTOR - 2025 11:30 AM EDT Images from the original note were not included. Physical Therapy Physical Therapy Daily Visit Patient Name: Mary Lou Russell Today's Date: 02/05/25 Subjective Current Problem: s/p left TKA with pain and difficulty walking. Pt is being seen today for follow up visit for s/p left TKA. Pt guatemalan speaking has family member here to translate and went well. Date of Surgery: 01/05/25 with three night stay. Current deficits: Difficulty with all mobility secondary to recent left TKA and pain. Visit Number 12 (10 visits in the home) Time In: 11:30 am Time out: 12:28 pm Sup time: 43 min Total time: 58 min Precautions: WBAT left LE; left TKA protocol Pain: min pain upon arrival, pt has started using cane Prior level of function: Ambulation: antalgic gait pattern on left LE. Assistive devices: FWW,, raised toilet seat ADL and IADL: Independent. Home Environment: Pt lives with her family in a 2 level home with 5-6 steps to enter with railing. Family assisting as needed. Staying on first floor during recovery. Has walk in shower. 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 Assessment Good tolerance to RONAL and min increased reps. Pt demos poor tolerance to manual stretching into flex. Pt is painful in extension although near 0 degrees. Advised pt to avoid ER leg and allow leg to lay straight in extension. Pt is not icing at home, advised to use for pain and swelling. Continue progression as tolerated Goals Short Term Goals Goal 1 : [...] with supervision, step to gait pattern. Supervisor Bottle Machines Goals Goal 1 : Patient will demonstrate [...] Plan Continue POC progressing RONAL as appropriate Cosigned by eJrry Galvin PT at 2025 3:07 PM EDT documented in this encounter Plan of Treatment Upcoming Encounters Date Type Department Care Team (Late st Contact Info) Description 02/11/2025 10:00 AM EDT Treatment [facility] [address] [place] [address] Tracy Villaseñor PTA 02/13/2025 10:30 AM EDT Treatment [facility] [address] [place] [address] Jerry Galvin, PT [address] [facility] [place] [address] 02/16/2025 10:30 AM EDT Treatment [facility] [address] [place] [address] Jerry Galvin, PT [address] [place] [address] 02/16/2025 3:30 PM EDT Office Visit [facility] Orthopaedics [address] [place] [address] Hunter Winters, HOG TRADER [address] [place] [address] 02/19/2025 10:30 AM EDT Treatment [address] [place] [address] Christy Meléndez PTA documented as of this encounter Visit Diagnoses Diagnosis Primary osteoarthritis of left knee- Primary Acute postoperative pain of left knee Status post total knee replacement, left documented in this encounter Care Teams Can Top Setter Relationship Specialty Start Date End Date Rosmery Hernandez DO [address] [place] [address] PCP - General Family Medicine 08/14/23 Lin Vega MD [address] [place] [address] Referring Physician Family Medicine 08/14/23 documented as of this encounter
--- OUTSIDE RECORDS SUMMARY | 2025-02-05 11:30 | XMS_ITS | Encounter Summary ---
Author Organization [facility] Healthcare Address [address] [place] [address] Care Team Providers Care Air Brakes Inspector Name Role Phone Lin Vega MD Unavailable Rosmery Hernandez DO Primary Care Provider [phone] Reason for Visit * Consultation (Routine) - Authorized Specialty Diagnoses / Procedures Referred By Isidro cortez Referred To Contact Physical Therapy Diagnoses Arthritis of left knee Acute pain of left knee Procedures AL OFFICE/OUTPATIENT [facility] MDM 60 MINUTES Miles Norman PA Phone: tel: fax: [facility] [address] [place] [address] Referral ID Status Reason Start Date Expiration Date Visits Requested Visits Authorized [id number] Authorized Consult and Treat 10/10/2024 04/08/2025 10 10 Encounter Details Date Type Department Care Team ([facility] st Contact Info) Description 2025 11:30 AM EDT Treatment [facility] [address] [place] [phone] Rafia Shields PTA [address] [place] [address] Primary osteoarthritis of left knee [...] this encounter Progress Notes * Rafia Shields, RADIOLOGY RECEPTIONIST - 2025 11:30 AM EDT Images from the original note were not included. Physical Therapy Physical Therapy Daily Visit Patient Name: Mary Lou Russell Today's Date: 02/05/25 Subjective Current Problem: s/p left TKA with pain and difficulty walking. Pt is being seen today for follow up visit for s/p left TKA. Pt equatorial guinean speaking has family member here to translate [...] shower. 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 Drug Safety Physician Goals Goal 1 : Patient will demonstrate [...] POC progressing RONAL as appropriate Cosigned by Jerry Galvin PT at 2025 3:07 PM EDT documented in this encounter Plan of Treatment Upcoming Encounters Date Type Department Care Team (Late st Contact Info) Description 02/11/2025 10:00 AM EDT Treatment [facility] [address] [place] [address] Tracy Villaseñor PTA 02/13/2025 10:30 AM EDT Treatment [facility] [address] [place] [address] Jerry Galvin, PT [address] [facility] [address] 02/16/2025 10:30 AM EDT Treatment [facility] [address] [place] [address] Jerry Galvin, PT [address] [place] [address] 02/16/2025 3:30 PM EDT Office Visit [facility] Orthopaedics [address] [place] [address] Hunter Winters, THEATRE INSTRUCTOR [address] [place] [address] 02/19/2025 10:30 AM EDT Treatment [place] [address] [place] [address] Christy Meléndez PTA documented as of this encounter Visit Diagnoses Diagnosis Primary osteoarthritis of left knee- Primary Acute postoperative pain of left knee Status post total knee replacement, left documented in this encounter Care Teams Air Brakes Inspector Relationship Specialty Start Date End Date Rosmery Hernandez DO [address] [place] [address] PCP - General Family Medicine 08/14/23 Lin Vega MD [address] [place] [address] Referring Physician Family Medicine 08/14/23 documented as of this encounter
--- NOTE | 2025-02-05 23:09 | ECG_ITS ---
[facility] Test Date: 2025-02-05 Pat Name: MEENA NUNEZ Department: Room: - Gender: Female Nuclear Control Room Operator: : [id number] Requested By: [id number] Order Number: [id number] Reading MD: PAIGE GAINES M.D. Measurements Intervals [place] Rate: 92 P: 69 MN: 168 QRS: 57 QRSD: 74 T: 54 QT: 350 QTc: 399 Interpretive Statements 1100 Sinus rhythm 1108 Marked sinus arrhythmia 8102 Low QRS voltage in chest leads 9130 borderline ECG No previous ECG available for comparison Electronically Signed On 02-06-2025 18:30:57 EDT by PAIGE GAINES M.D.
--- NOTE | 2025-02-05 23:16 | ED_ITS ---
HPI HPI - General Adult General Chief complaint: Shortness of Breath/Dyspnea Stated complaint: SOB,NAUSEA,DIZZY Time Seen by Provider: 02/05/25 22:32 Source: patient Mode of arrival: Wheelchair Limitations: no limitations History of Present Illness HPI narrative: The patient is a very pleasant 75-year-old female who presents to the emergency department with her daughter and granddaughter. The patient has a known past medical history of hypertension and dyslipidemia. Patient's presenting to the emergency department today for shortness of breath, nausea, and dizziness. This patient is speaking. I did offer the associate field service engineer device. However, the patient indicates that she would prefer that her granddaughter translate for her. I do also personally speak Dutch and feel like the translation was very accurate. Patient's symptoms began around 8 PM this evening. She started to have acute onset of shortness of breath and having a hard time breathing. She does not smoke and she does not have a history of COPD. No history of congestive heart failure. Patient has not had any cough, cold, flulike symptoms or fever or chills. The patient stated that she has no personal or family medical history of PE or DVT. The patient however does have a risk factor having had a left knee surgery 1 month ago. The patient stated that she is not on any blood thinners. She is supposed to be taking an aspirin but is not. Does not note that the pain in the left lower extremity is any worse. She states that the pain is the same. She is currently taking oxycodone for analgesic management. Patient states that this shortness of breath is associated with some nausea and dizziness. Patient denies any chest pain accompanying this dyspnea. The patient has a additional complaint. Patient states that she has left shoulder pain. The left shoulder pains been present for 3 months. It is progressively getting worse. It hurts worse to AB duct her shoulder or raise it above her head. Patient denied any heavy lifting, moving, twisting or repetitive movement. The patient is right-hand dominant. Patient states the pain is severe. Movement makes it worse. Nothing makes it better. She has not discussed this with her physician. Patient's third complaint is that she had a laceration to her left index finger in June. It was repaired at an outside facility. She has hyperesthetic areas to her left index finger. This is not new, but rather has been present for the last 6 or 7 months. Related Data Allergies Allergy/AdvReac Type Severity Reaction Status Date / Time No Known Drug Allergies Allergy Verified 02/05/25 22:36 Review of Systems ROS Narrative 10 Systems were reviewed, and unless not ed in the HPI, all other systems are reviewed, unremarkable, or noncontributory. [facility] Social History Little interest or pleasure in doing things: not at all Feeling down, depressed, or hopeless: not at all Exam Narrative Exam Narrative: Prior to examining the patient, I have washed with hospital approved and provided Antiseptic Hand Health Care Analyst and have also applied gloves.? Prior to touching the patient, I asked for consent to examine the patient.? General: Alert and oriented, well nourished, mild distress. Eye: PERRL, EOMI, normal conjunctiva. HENT: Normocephalic, normal hearing, moist oral mucosa, no scleral icterus, no sinus tenderness. Neck: Supple, non-tender, no carotid bruits, no JVD, no lymphadenopathy. Lungs: Clear to auscultation and percussion, non-labored respiration. No rhonchi, rales, wheezing. Heart: Normal rate, regular rhythm, no murmur, gallop or edema. Abdomen: Soft, non-tender, non-distended, normal bowel sounds, no masses. Musculoskeletal: Normal range of motion and strength, no swelling. The patient does have tenderness to the scapular spine on the left shoulder. Skin: Skin is warm, dry and pink, no rashes or lesions. Neurologic: Awake, alert, and oriented X3, CN II-XII intact. Psychiatric: Cooperative, appropriate mood and affect.? Following the conclusion of the examination, I have washed my hands thoroughly after removing examination gloves. Constitutional Vital Signs, click to edit/add: Last Vital Signs Temp 97.8 F 02/05/25 22:29 Pulse 99 H 02/06/25 01:14 Resp 22 H 02/06/25 01:14 BP 132/84 02/06/25 01:14 Pulse Ox 94 L 02/06/25 01:14 O2 Del Method Room Air 02/05/25 22:41 Course Course Hospital Course: Patient was evaluated in our emergency department. After I assessed the patient I ordered her morphine and Zofran for her discomfort. Patient is taking oxycodone. But, she is having pain outside of her medications. I did not feel that the patient was wheezing or having any type of stridor. Do not believe she needs an emergent breathing treatment. My working diagnosis at this time is really considering a pulmonary embolism. Reevaluation(s) Reevaluation #1: Patient second troponin came back elevated. Pulmonary embolism is still on my differential as well as acute coronary syndrome. However, either way the patient is going to have to be placed on a blood thinner so I have already initiated aspirin 324 mg by mouth and heparin therapy. Reevaluation #2: I went in and spoke with the patient and her family and indicated that she does indeed have a pulmonary emboli. I had just got off the phone with the hospitalist who indicated that she indeed can stay here at [facility]. The patient is not requiring oxygen and there is no right heart strain. I am impressed enough that it is bilateral and that her heart rate remains above 100 that I think we should keep her here at least until treatments initiated for 24 hours. Time: 02:41 Consultations Consultation #1: Spoke with the board-certified radiologist who read her CT scan who indicated that she has multiple PE bilaterally. She has got a moderate amount of clot burden. There is no saddle emboli no evidence of right heart strain. Time: 02:31 Consultation #2: I had an opportunity speak to the internal medicine physician. I did explain to him the patient's symptoms and the results. He did indicate that he felt that the patient was able to stay at [place]. Time: 02:34 Vital Signs Vital signs: Vital Signs Temperature 97.8 F 02/05/25 22:29 Pulse Rate 88 02/05/25 22:29 Respiratory Rate 18 02/05/25 22:29 Blood Pressure 161/80 H 02/05/25 22:29 Pulse Oximetry 95 02/05/25 22:29 Oxygen Delivery Method Room Air 02/05/25 22:29 Temperature 97.8 F 02/05/25 22:29 Pulse Rate 99 H 02/06/25 01:14 Respiratory Rate 22 H 02/06/25 01:14 Blood Pressure 132/84 02/06/25 01:14 Pulse Oximetry 94 L 02/06/25 01:14 Oxygen Delivery Method Room Air 02/05/25 22:41 Medical Decision Making MDM Narrative Medical decision making narrative: Additional historian: Granddaughter and daughter Review of old medical records: None available Laboratories ordered: CBC, CMP, troponin, magnesium Imaging ordered: CT PE Results of testing: CBC revealed mild anemia I do not have an old level for comparison. Competence of metabolic panel reviewed patient some mild hyperglycemia. 21 1. Good alk phos was very nonspecific at 166. Patient's troponin however was elevated at 397. And the second troponin was elevated at 500.4. Patient's BNP is 393. CT scan returned and revealed that the patient does have evidence of bilateral pulmonary emboli. Interventions: Morphine 4 mg IV push and Zofran 4 mg IV push Aspirin 324 mg by mouth and heparin bolus with a drip. Disposition: Patient is can to be admitted to the [facility] for continued anticoagulant therapy and monitoring. Differential Diagnosis Differential Diagnosis: Pulmonary embolism, coronary artery disease, congestive heart failure, pneu Medical Records Medical records reviewed: Yes I reviewed the patient's medical records Lab Data Lab results reviewed: Yes I reviewed the patient's lab results Labs: Lab Results 02/05/25 02/06/25 Range/Units 23:31 01:21 WBC 9.2 (4.0-11.0) 10^3/uL RBC 3.57 L (4.20-5.40) 10^6/uL Hgb 10.3 L (12.0-16.0) g/dL Hct 31.7 L (36.0-48.0) % MCV 88.8 (81.0-99.0) fL MCH 28.9 (26.7-34.0) pg MCHC 32.5 (29.9-35.2) g/dL RDW 13.6 (11.0-15.0) % Plt Count 177 (150-450) 10^3/uL MPV 9.4 L (9.5-13.5) fL Neut % (Auto) 78.1 H (43.0-75.0) % Lymph % (Auto) 14.3 L (20.5-60.0) % [place] % (Auto) 5.5 (1.7-12.0) % Eos % (Auto) 1.5 (0.9-7.0) % Baso % (Auto) 0.3 (0.2-2.0) % Neut # (Auto) 7.2 H (1.4-6.5) 10^3/uL Lymph # (Auto) 1.3 (1.2-3.8) 10^3/uL [place] # (Auto) 0.5 (0.3-0.8) 10^3/uL Eos # (Auto) 0.1 (0.0-0.7) 10^3/uL Baso # (Auto) 0.0 (0.0-0.1) 10^3/uL Abs Immat Gran (auto) 0.03 (0.00-0.03) 10^3/uL Imm/Tot Granulo (auto) 0.3 (0.0-0.5) % PT 10.5 (9.0-11.6) sec INR 0.99 Sodium 137 (136-145) mmol/L Potassium 4.2 (3.5-5.1) mmol/L Chloride 102 (98-107) mmol/L Carbon Dioxide 25.1 (21.0-32.0) mmol/L Anion Gap 14.1 BUN 21.0 H (7.0-18.0) mg/dL Creatinine 0.84 (0.55-1.02) mg/dL Est GFR ( Amer) >60 (>=60 mL/min/1.73m^2) Est GFR (Non-Af Amer) >60 (>=60 mL/min/1.73m^2) BUN/Creatinine Ratio 25.0 Glucose 126 H (74-106) mg/dL Calcium 9.0 (8.5-10.1) mg/dL Total Bilirubin 0.2 (0.2-1.0) mg/dL AST 16 (15-37) U/L ALT 18 (14-59) U/L Alkaline Phosphatase 166 H (46-116) U/L Troponin I High Sens 388.3 H* 500.4 H* (4.0-51.3) pg/mL NT-Pro-B Natriuret Pep 393.0 (<=1800.0) pg/mL Total Protein 8.2 (6.4-8.2) g/dL Albumin 3.7 (3.4-5.0) g/dL Globulin 4.5 g/dL Albumin/Globulin Ratio 0.8 ECG Data Attestation: I personally reviewed and interpreted this ECG as follows: Interpretation: Twelve-lead EKG: Twelve-lead EKG reveals a sinus rhythm with a ventricular rate of 92 bpm. The IA interval and QRS duration are normal. QTc is not prolonged. No evidence of ST segment elevation or depression suggestive of infarction or ischemia. No S1 Q3 T3 present. Summary: Normal EKG. Discharge Plan Discharge Chief Complaint: Shortness of Breath/Dyspnea Clinical Impression: Bilateral pulmonary embolism Patient Disposition: Admitted As Inpatient Time of Disposition Decision: 02:45 Condition: Fair
[2025-02-05] MEDS: MORPHINE SULFATE 4 MG/ML VIAL IV (23:43)
[2025-02-05 23:52] LABS: Hematocrit 31.7 % (36.0-48.0); Hemoglobin 10.3 g/dL (12.0-16.0); Immature Granulocytes Abs Auto 0.03 10^3/uL (0.00-0.03); Immature Granulocytes Pct Auto 0.3 % (0.0-0.5); Lymphocytes Absolute Auto 1.3 10^3/uL (1.2-3.8); Mean Corpuscular HGB Conc 32.5 g/dL (29.9-35.2); Mean Corpuscular Hemoglobin 28.9 pg (26.7-34.0); Mean Corpuscular Volume 88.8 fL (81.0-99.0); Platelet Count 177 10^3/uL (150-450); Red Blood Count 3.57 10^6/uL (4.20-5.40); White Blood Count 9.2 10^3/uL (4.0-11.0)
[2025-02-06] VITALS (29 sets, daily range): BP systolic 132–160; BP diastolic 53–89; PULSE 68–102; TEMP 36.8–37.2; O2SAT 93–96; BMI 35.6
[2025-02-06 00:08] LABS: Alanine Aminotransferase 18 U/L (14-59); Albumin Globulin Ratio 0.8; Albumin Level 3.7 g/dL (3.4-5.0); Alkaline Phosphatase 166 U/L (46-116); Anion Gap 14.1; Aspartate Amino Transferase 16 U/L (15-37); Blood Urea Nitrogen 21.0 mg/dL (7.0-18.0); Calcium 9.0 mg/dL (8.5-10.1); Carbon Dioxide 25.1 mmol/L (21.0-32.0); Chloride 102 mmol/L (98-107); Estimated GFR (African America >60 (>=60 mL/min/1.73m^2); Estimated GFR (Non-African Ame >60 (>=60 mL/min/1.73m^2); Globulin 4.5 g/dL; Glucose 126 mg/dL (74-106); NT Pro B Type Natriuretic Pept 393.0 pg/mL (<=1800.0); Potassium 4.2 mmol/L (3.5-5.1); Sodium 137 mmol/L (136-145); Total Protein 8.2 g/dL (6.4-8.2)
[2025-02-06 02:13] LABS: INR 0.99; Prothrombin Time 10.5 sec (9.0-11.6)
[2025-02-06] MEDS: HEPARIN SODIUM,PORCINE/D5W 25,000 UNIT/500 ML IV.SOLN 15.024 UNIT IV (02:21)
[2025-02-06] MEDS: HEPARIN SODIUM (PORCINE) 5,000 UNIT/ML VIAL 2500 UNIT IV (02:22)
[2025-02-06] MEDS: ASPIRIN 81 MG TAB.CHEW 324 MG PO (02:23)
--- NOTE | 2025-02-06 02:46 | CA_ITS ---
Patient Name: MEENA NUNEZ MR#: [id number] : 1950 Exam Date: 02/06/2025 Ordering Doctor: CLINT REA ECHOCARDIOGRAM REPORT PROCEDURE: CA ECHO DOPPLER COMPLETE INDICATIONS: PE COMPARISON: None. DESCRIPTION: COMPLETE ECHOCARDIOGRAM Real-time transthoracic echocardiography with 2D, M-mode, spectral and color flow Doppler performed. QUALITY: Technical quality was adequate. LEFT VENTRICLE: Normal chamber size. Normal left ventricular wall thickness. Global left ventricular systolic function is normal. LV EF: Calculated left ventricular ejection fraction is 65%. DIASTOLIC: Diastolic function is indeterminate. ATRIAL SEPTUM: LEFT ATRIUM: Mild dilatation. RIGHT ATRIUM: Mild dilatation. RIGHT VENTRICLE: Mild chamber dilatation. Normal right ventricular systolic function. TRICUSPID VALVE: Normal mobility and thickness. No stenosis with mild to moderate regurgitation. Mild pulmonary hypertension. RVSP 41 mmHg. MITRAL VALVE: Normal mobility and thickness. No evidence of mitral valve stenosis. There is no mitral annular calcification. No mitral regurgitation. AORTIC VALVE: Normal trileaflet appearance. No visible sclerosis. Normal leaflet mobility. No evidence of aortic valve stenosis. No aortic regurgitation. AORTIC ROOT: Normal diameter and appearance, measuring 3.1 cm. The ascending aorta is normal in size measuring 2.8 cm. PULMONIC VALVE: Not well visualized. No stenosis. No regurgitation. PERICARDIUM: Small pericardial effusion. IVC: Collapses with inspiration. Normal size. PLEURA: CONCLUSION: 1. The left ventricle is normal in size and exhibits normal systolic function. Estimated LVEF is 65%. 2. The right ventricle is mildly dilated and exhibits normal systolic function. 3. Mild biatrial dilatation. 4. Mild to moderate tricuspid regurgitation. 5. Mildly elevated right-sided pressures. RVSP is 41 mmHg. 6. Small pericardial effusion. Adult Echocardiography Procedure Report Left Ventricle LVEDD (3.7 - 5.6 cm): 3.47 cm LVESD (2.2 - 4.0 cm): 2.26 cm LVIVS thickness (0.6 - 1.2 cm): 0.77 cm LVPW thickness (0.5 - 1.0 cm): 0.71 cm e': 0.10 m/s E - e': 6.80 LVOT Max Gradient: 3.22 mm[Hg] LVOT Area (cm2): 0.90 m/s Peak Velocity (LVOT): 0.90 m/s Mean Velocity (LVOT): 0.62 m/s LVOT Diameter 1.76 cm Left Ventricular Ejection Fraction: 65 % Left Atrium LA Volume Index (2D A2C): 39.93 ml/m2 Left Atrium Systolic Dimension: 3.01 cm Mitral Valve MV E to A Ratio: 0.88 Mitral Valve A-Wave Peak Velocity: 0.80 m/s Mitral Valve E-Wave Peak Velocity: 0.70 m/s Right Ventricle RV Internal Diastolic Dimension: 3.37 cm Aorta AO Root Diam: 3.10 cm Ascending Ao Diam: 2.84 cm Aortic Valve AoV Area (Peak Demetrio): 2.26 cm2, 2.26 cm2 AoV Area (VTI): 2.11 cm2, 2.11 cm2 Peak Velocity(Antegrade Flow): 0.97 m/s Peak Gradient(Antegrade Flow): 3.74 mm[Hg] Mean Velocity(Antegrade Flow): 0.65 m/s Mean Gradient(Antegrade Flow): 1.95 mm[Hg] Velocity Time Integral: 22.85 cm Tricuspid Valve Peak Velocity (Regurgitant Flow): 2.76 m/s, 2.86 m/s, 3.09 m/s Pulmonic Valve Peak Velocity: 0.69 m/s Peak Gradient: 1.74 mm[Hg], 2.09 mm[Hg] Right Atrium Right Atrium Systolic Pressure: 46.49 ml, 46.49 ml Dictated by: Andrea Hutson M.D. on 02/06/2025 at 18:21 Approved by: Andrea Hutson M.D. on 02/06/2025 at 18:27
[2025-02-06 03:19] LABS: Partial Thromboplastin Time 73.2 sec (22.3-36.2)
[2025-02-06] MEDS: ENOXAPARIN SODIUM 100 MG/ML SYRINGE 85 MG SUBQ (03:49)
[2025-02-06] MEDS: 0.9 % SODIUM CHLORIDE 1,000 ML 125 ML IV (03:57)
[2025-02-06] MEDS: AMLODIPINE BESYLATE 5 MG TABLET PO (09:10)
[2025-02-06] MEDS: ATORVASTATIN CALCIUM 20 MG TABLET PO (09:10)
[2025-02-06] MEDS: LOSARTAN POTASSIUM 50 MG TABLET 100 MG PO (09:10)
--- NOTE | 2025-02-06 09:44 | SWNOTE1 ---
SW consulted for Advanced Directives. SW stopped in room to discuss with pt. Pt speaks Jordanian. Pt's daughter and grand-daughter in room. Pt's grand daughter is fluid in Occitan and Jordanian and communicated with pt and SW. SW did explain the Advanced Directives and offered to complete with patient. After discussion between grand daughter and patient, pt would like to look over booklet and review with grand-daughter and they will let SW know if patient wants to complete. Daughter in room as well and she voiced she is the only daughter in [facility]. Her other children are in [place].
--- NOTE | 2025-02-06 13:59 | PM.HP ---
HPI H&P: HPI History of Present Illness Chief complaint: BILATERAL PULMONARY EMBOLI Narrative: This is a 75-year-old woman who came to the emergency room yesterday evening with her daughter with a sudden onset of shortness of breath, increased work of breathing, and a feeling of dizziness when she was ambulating. She had had a total knee replacement about 1 month ago on the left side. She was supposed to be taking 2 tablets of 81 mg aspirin for DVT prophylaxis but was not taking any aspirin. She has Korean-speaking but her daughters are present and translate for her. She did not have any cough. She has not had any expectoration of any hemoptysis. Her only past medical history is of some hypertension and hyperlipidemia. CT angiography in the emergency room showed multiple pulmonary identified in the distal right main pulmonary artery extending into the right lower lobe and right upper lobe ulnar artery segments and pulmonary emboli also noted in the left lower lobe pulmonary arteries extending into the lower lingula. No saddle embolus. Normal heart size with no pericardial effusion. Mild atelectasis to the right lung base. This morning a venous Doppler ultrasound shows positive deep vein thrombosis in the left posterior tibial vein. In the room this afternoon, accompanied by her 2 daughters who translate for her the patient says that her breathing is feeling much better. She is not having that increased work of breathing or the sensation of shortness of breath. Per the patient and her daughters I did explain, in general and in layman's terms, the deep vein thrombosis, the pulmonary embolus, the anticoagulation, she should stop taking aspirin, which she was not taking anyway, she should not use NSAIDs, such as naproxen, which she had been using for various osteoarthritis pains as her risk of bleeding on anticoagulant would be doubled with use of NSAIDs. She can use Tylenol for pain. She should follow-up with the orthopedic surgeon in the office to begin looking at complaints that she has in her left shoulder which seem like frozen shoulder but could be rotator cuff injury, but she will not be a candidate for any injections or any surgeries until the anticoagulation is complete. Most recently provoked deep vein thrombosis and pulmonary emboli like this have been reduced from 6 months of anticoagulation to 3 months, but considering this is in the bilateral lungs and a few different lobes of her lungs I favor extending her anticoagulation treatment to 6 months. At the end of my visit the patient and her daughters had no additional questions. Opioid HPI Opioid Management Most Recent Pain and Opioid Data: Last Pain Scale 3 Today, 12:55 Last Pain Assessment Today, 04:33 Last ORT Total Score 0 Today, 03:21 Last ORT Risk Category Low Risk Today, 03:21 Review of Systems ROS Narrative 10 point review of systems is completed and is negative except as mentioned above in history of present illness. [facility] Medical History (Updated 02/06/25 @ 14:06 by BRIGETTE ESPINOZA) High cholesterol ?E78.00 - Pure hypercholesterolemia, unspecified (ICD-10) High blood pressure ?I10 - Essential (primary) hypertension (ICD-10) Surgical History Total knee replacement status ?Z96.659 - Presence of unspecified artificial knee joint (ICD-10) Family History Mother Family history of myocardial infarction Other Family history of hypertension Social History Within the past year, how often did you have a drink containing alcohol: never Within the past year, how often did you have six or more drinks on one occasion: never Score interpretation: A score less than 3 is consistent with normal alcohol consumption. Smoking status: Never smoker Second hand tobacco smoke exposure: No Non-prescribed substance use: denies use Previous occupational history: retired Known occupational exposures/hazards: No Highest level of school completed/degree received: 6th grade Are you now , , , , never or living with a partner: In a typical week, how many times do you talk on the telephone with family, friends, or neighbors: 3 or more times per week How often do you get together with friends or relatives: 3 or more times per week How often do you attend hinduism or sabianism services: 4 or more times per year Do you belong to any clubs or organizations such as hinduism groups unions, fraternal or athletic groups, or school groups: yes Total score: 3 Score interpretation: A score of greater than or equal to 2 indicates the lowest level of social isolation. Little interest or pleasure in doing things: not at all Feeling down, depressed, or hopeless: not at all Feel stressed/tense/nervous/anxious/difficulty sleeping: not at all Due to disability, difficulty making decisions: No Meds Home Medications and Allergies Home Medications ?Medication ?Instructions ?Recorded ?Confirmed ?Type amlodipine 5 mg tablet 5 mg PO DAILY 02/06/25 02/06/25 History atorvastatin 20 mg tablet 20 mg PO DAILY 02/06/25 02/06/25 History losartan 100 mg tablet 100 mg PO DAILY 02/06/25 02/06/25 History omeprazole 40 mg capsule,delayed 40 mg PO .ACB 02/06/25 02/06/25 History release oxycodone-acetaminophen 5 mg-325 1 tab PO Q6H PRN pain 02/06/25 02/06/25 History mg tablet Allergies Allergy/AdvReac Type Severity Reaction Status Date / Time No Known Drug Allergies Allergy Verified 02/05/25 22:36 Exam Narrative Exam Narrative: General: Awake. Alert. Oriented x 3, sitting up on the edge of the bed. Eyes: EOMI, PERRLA. Neurologic: AAO x 3. Nose: External nose is and structures are normal. Neck: No JVD. No thyromegaly. Pulmonary: Clear to auscultation throughout. No wheezing. No rhonchi. No crackles. Cardiac: Regular rate and rhythm. No rubs or gallops to auscultation. GI: Abdomen soft, normal bowel sounds to auscultation. Left knee: The incision site is excellent. There is minimal edema at this leg. It is really healing better than average for total knee replacements. Minimal edema in her left leg below the knee. I do not feel any cords or venous abnormalities or knots in her calf on the left leg. The left calf is just a tiny bit bigger in diameter than the right calf. Right leg is normal. No edema in the ankle at all. Patient complains of left shoulder pain. She cannot really lift the shoulder up and cannot reach behind her into her back pocket. She has the appearance of a rotator cuff problem, but it may be overuse to this left shoulder as she has been recovering from the recent total knee arthroplasty. Psychiatric: Bright mood and affect. Pleasant. Conversant. Skin: Normal skin throughout without any obvious systemic rashes. Neurologic: I do not see any focal neurologic deficits. Moves all 4 extremities normally. Constitutional Vital Signs, click to edit/add: Last Vital Signs Temp 98.2 F 02/06/25 08:00 Pulse 86 02/06/25 13:43 Resp 16 02/06/25 09:05 BP 151/67 H 02/06/25 08:47 Pulse Ox 95 02/06/25 11:26 O2 Del Method Room Air 02/06/25 11:26 Results Labs Labs: Short CBC 02/05/25 Range/Units 23:31 WBC 9.2 (4.0-11.0) 10^3/uL Hgb 10.3 L (12.0-16.0) g/dL Hct 31.7 L (36.0-48.0) % Plt Count 177 (150-450) 10^3/uL BMP 02/05/25 23:31 Sodium 137 Potassium 4.2 Chloride 102 Carbon Dioxide 25.1 BUN 21.0 H Creatinine 0.84 Glucose 126 H Calcium 9.0 Liver Function 02/05/25 Range/Units 23:31 Total Bilirubin 0.2 (0.2-1.0) mg/dL AST 16 (15-37) U/L ALT 18 (14-59) U/L Alkaline Phosphatase 166 H (46-116) U/L Albumin 3.7 (3.4-5.0) g/dL Assessment and Plan Assessment and Plan (1) Bilateral pulmonary embolism: (2) High blood pressure: Qualifiers: Hypertension type: primary hypertension Qualified Code(s): I10 - Essential (primary) hypertension (3) High cholesterol: Plan Assessment: Acutely symptomatic of multiple pulmonary emboli in the right main pulmonary artery and right lower lobe and right upper lobe as well as left lower lobe pulmonary arteries and left lingula. Deep vein thrombosis in the left lower extremity. Recent total knee replacement on the left. History of hypertension. History of hyperlipidemia. Plan: Observation status for this patient in the hospital. She had been started on Lovenox 1 mg/kg subcutaneously twice daily. Will transition her to Xarelto tonight. I will send a prescription to Xarelto to her outpatient pharmacy to find out if this is affordable. Her symptoms were very dramatic but no right ventricle strain was seen on CT scan. She needs to be monitored on telemetry here in the hospital overnight and work with physical therapy tomorrow and make sure that her symptoms are improving. Medications from home have been reviewed and continued.
--- OUTSIDE RECORDS SUMMARY | 2025-02-06 14:00 | XMS_ITS | Encounter Summary ---
[facility] [id number] [address] [place] [address] Care Team Providers Care Mig Welder Name Role Phone Rosmery Hernandez DO Primary Care Provider [phone] Encounter Details Date Type Department Care Team (Late st Contact Info) Description 09/13/2020 Orders Only [facility] [address] [place] [phone] External, Scanning Provider Social History Tobacco Use Types Packs/Day Years Used Date Smoking Tobacco: Never Childcare Answer Date Recorded Childcare Unknown 12/18/2018 Employment Answer Date Recorded Employment Unknown 12/18/2018 Purpose - Life Answer Date Recorded Purpose and direction in life Unknown Comments Unknown Sex and Gender Information Value Date Recorded Sex Assigned at Not on file Legal Sex Female 12:01 PM EDT Gender Identity Not on file Sexual Orientation Not on file documented as of this encounter Plan of Treatment Not on file documented as of this encounter Procedures Procedure Name Priority Date/Time Associated Diagnosis Comments MULTIPLE LABS Routine 04/30/2020 documented in this encounter Results * Multiple labs (04/30/2020) us Scanning Provider External [facility] Final Result MANUALLY TRANSCRIBED RESULTS documented in this encounter Visit Diagnoses Not on filedocumented in this encounter Care Teams Mig Welder Relationship Specialty Start Date End Date Rosmery Hernandez DO [address] [place] [address] PCP - General Family Medicine 04/13/24 documented as of this encounter
--- OUTSIDE RECORDS SUMMARY | 2025-02-06 14:00 | XMS_ITS | Patient Health Record ---
Author Organization [facility] Address [address] [place], [place] [id number] Care Team Providers Care Educational Programming Director Name Role Phone Lisa Mercado Primary Care Provider [phone] Tess Charles Unavailable [phone] Lily Reynoso Unavailable Allergies No Known Allergies Reason For Referral Reason Left finger injury a t metacarpophalangeal doing of index finger. No nearby hand surgery if ortho can evaluate. Diagnosis 1 Finger injury (S69.9 0XA) Referral Organization Main Referring Provider First Name Lisa Referring Provider Last Name Rogelio Referring Provider Speciality Internal M edicine Referred Provider Dorian Solis Referred Provider Specialty Orthopedic S urgery General Notes Sean Farrell 08:49:05 AM >{{TOFIRSTNAME}} This is [facility] following up on an outstanding referral that was ordered by your provider. Please call our office at , so we can _update our records.Hazel Jeff 05/26/2024 09:10:43 AM >Pt not able to be seen before leaving for [place] 06/09/24. Pt will be gone 3 months. Pt not sure they will schedule when they return. jwm Referral Priority Routine Medications Medication SIG (Take, Route, Frequency, Duration) Notes Start Date End Date Status Poly-Iron 150 Forte 150-25-1 MG-MCG-MG TAKE 1 CAPSULE BY MOUTH ONCE DAILY Oral; Duration: 30 Days Active Losartan Potassium 100 MG Take 1 tablet by mouth once daily; Duration: 90 Active amLODIPine Besylate 5 MG 1 tablet Orally Once a day; Duration: 90 days 04/03/2022 Active Atorvastatin Calcium 20 MG 1 tablet Oral Once a day; Duration: 90 days Active Sulindac 200 MG 1 tablet with food O rally Twice a day as needed; Duration: 90 days 10/18/2021 Active Omeprazole 40 MG 1 capsule 30 minutes before morning meal Orally Once a day; Duration: 90 days Active Immunizations Vaccine Route Administration Date Status Comme nts COVID-19 (Pfizer)-Private Unknown 12/16/2020 Administered COVID-19 (Pfizer)-Private Unknown 01/14/2021 Administered Influenza (split), 3 yrs and above IM Intramuscular 06/18/2012 Administered Status:Complete ,Reason:Given or N/A ,Given at 5:10pm Social History Tobacco Use: Social History Observation Description Date Details (start date - stop date) Never Smoker NA - NA Sex Assigned At : Social History Observation Description Sex Assigned At Female Household Question Answer Notes Number of adults in household: 5 Number of children in household: 1 Tobacco Use/Smoking Question Answer Notes Tobacco use: nonsmoker patient enter ed data CAGE-AID Questionnaire (2018 Edition) Question Answer Notes Have you ever felt that you ought to cut down on your drinking or drug use? No patient entered data Have people annoyed you by c riticizing your drinking or drug use? No patient entered data Have you ever felt bad or gu ilty about your drinking or drug use? No patient entered data Have you ever had a drink or used drugs first thing in the morning to steady your nerves or to get rid of a hangover? No patient entered data CAGE-AID Score 0 Interpretation Negative PRAPARE Question Answer Notes Date Completed/Updated: 10/29/2024 bob nt entered data What is your current housing situation? I have housing patient entered data Are you worried about losing your housing? No patient entered data What is the highest level of school that you have finished? Less than a high school degree patient entered data What is your current work situation? Otherwise unemployed but not seeking work (ex. 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 Check all that apply I do not have problems meeting my needs Has lack of transportation k ept you from medical appointments, meetings, work or from getting things needed for daily living? No How often do you see or talk to people that you care about and feel close to? (For example: talking to friends on the phone, visiting friends or family, going to amish or club meetings) 3 to 5 times a week patient entered data How stressed are you? Stress is when someone feels tense, nervous, anxious, or can't sleep at night because their mind is troubled Not at all patient entered data In the past year have you sp ent more than 2 nights in a row in a [place] [facility] [place], [facility], [facility], or juvenile correctional facility? No patient entered data Are you a refugee? No patient en tered data What country are you from? I choose not to answer this question Do you feel physically and emotionally safe where you currently live? Yes patient entered data In the past year, have you b een afraid of your partner or ex-partner? No patient entered data PRAPARE Score: 6 Tobacco Control (Standard) Question Answer Notes Tobacco use: Nonsmoker Problems Problem Type SNOMED Code ICD Code Onset Dates Problem Status W/U Status Risk Notes Problem Obesity (983586230) Obesity, unspecified (E66.9) Active confirmed Problem BMI 30+ - obesity (616879302) BMI 32.0-32.9,adult (Z68.32) Active confirmed Problem Osteoarthritis of knee (890674796) Primary osteoarthritis of left knee (M17.12) Active confirmed Problem Osteoarthritis of knee (263537564) Primary osteoarthritis of right knee (M17.11) Active confirmed Problem Hyperlipidaemia (70141233) Hyperlipidemia, unspecified hyperlipidemia type (E78.5) Active confirmed Problem Primary hypertension (49003851) Primary hypertension (I10) Active confirmed Problem Gastroesophageal reflux disease (925256893) GERD (gastroesophagea l reflux disease) (K21.9) Active confirmed Comment:sym p toms stable. continue PPI as needed., Problem Constipation (57851758) Constipation (K59.00) Inactive confirmed Comment:iden tified on CT imaging w/o other acute finding and pt report of no BM for 4days will trial miralax, patient informed, Problem Cervical lymphadenitis (8245953) Cervical lymphadenitis (I88.9) Inactive confirmed Comment:As above; follow up in 2 weeks., Problem Onychomycosis caused by dermatophyte (780783933) Onychomycosis of toenail (B35.1) Inactive confirmed Comment:She could only tolerate 2 months of the terbinafine (upset her stomach); will check LFTs since her stomach still bothers her., Problem Seasonal allergy (329301581) Seasonal allergies (J30.2) Problem resolved confirmed Problem Benign paroxysmal positional vertigo (664401699) Benign positional vertigo (H81.10) Problem resolved confirmed Comment:-BPP V has improved significantl y -Not taking antivert anymore -Discussed exercises and stretches that may reduce dizzness and BPPV symptoms -Explains PT could be utilized if dizziness persists or worsens; PVU but explains she woiuld like to wait -F/u PRN, PVU, Problem Chronic hoarseness (5571426932578) Hoarseness, chronic (R49.0) Problem resolved confirmed Problem Chest pain (50508310) Chest pain, exertional (R07.9) Problem resolved confirmed Comment:pers istent issue w/ activity climbing the stairs stress test negative but not complete w/ activity level will refer to cardiology for further consult, Vital Signs Heart Rate 64 /min 12/22/2024 Beth Cardenas 12/22/2024 10:30:46 AM EDT > Temperature 98.0 degrees Fahrenheit 12/22/2024 Beth Garcia 12/22/2024 10:30:46 AM EDT > Respiratory Rate 18 /min 12/22/2024 Agnes Cardenas stmony 12/22/2024 10:30:46 AM EDT > Height-cm 162.56 cm 12/22/2024 Beth Cardenas 12/22/2024 10:30:46 AM EDT > Oximetry 98 % 12/22/2024 Beth Cardenas 12/22/2024 10:30:46 AM EDT > Blood pressure diastolic 70 mm Hg 12/22/2024 Beth Cain 12/22/2024 10:30:46 AM EDT > Weight-kg 85.73 kg 12/22/2024 Cardenas Beth 12/22/2024 10:30:46 AM EDT > Height 64.00 in 12/22/2024 Cardenas Beth 12/22/2024 10:30:46 AM EDT > Blood pressure systolic 123 mm Hg 12/22/2024 Reillycarmen davis Beth 12/22/2024 10:30:46 AM EDT > Weight 189 lbs 12/22/2024 Cardenas Beth 12/22/2024 10:30:46 AM EDT > BMI 32.44 kg/m2 12/22/2024 Ronald Beth 12/22/2024 10:30:46 AM EDT > Encounters Encounter Location Date Provider Diagnosis Main [address] [place], [place] [id number] 02/21/2024 Lily Reynoso Primary hypertension I10 ; GERD (gastroesophageal reflux disease) K21.9 ; Hyperlipidemia, unspecified hyperlipidemia type E78.5 ; Primary osteoarthritis of left knee M17.12 ; BMI 32.0-32.9,adult Z68.32 and Obesity, unspecified E66.9 Main [address] [place], [place] [id number] 05/12/2024 Lisa Rogelio Finger injury S69.90 XA Main [address] [place], [place] [id number] 06/03/2024 Lisa Rogelio Primary hypertension I10 ; Hyperlipidemia, unspecified hyperlipidemia type E78.5 ; GERD (gastroesophageal reflux disease) K21.9 and Medication refill Z76.[address] [id number] 10/29/2024 Tess Charles Primary hypertension I10 ; Hyperlipidemia, unspecified hyperlipidemia type E78.5 ; Medication refill Z76.0 ; Screening for breast cancer Z12.39 ; Colon cancer screening declined Z53.20 ; Dietary counseling Z71.3 ; Exercise counseling Z71.82 and BMI 32.0-32.9,adult Z68.[address] [id number] 12/22/2024 Tess MccoyNeal Knee pain, chronic, left M25.562 and Pre-op evaluation Z01.818 Main [address] [place], [place] [id number] 04/11/2024 Lily Myerholtz Primary hypertension I10 Main [address] [place], [place] [id number] 04/29/2024 Lily Myerholtz Primary hypertension I10 Main [address] [place] [id number] 10/08/2024 Lisa Rogelio Primary hypertension I10 Main [address] [place], [place] [id number] 10/28/2024 Lisa Rogelio GERD (gastroesophage al reflux disease) K21.9 ; Medication refill Z76.0 and Hyperlipidemia, unspecified hyperlipidemia type E78.5 Main [address] [place], [place] [id number] 10/29/2024 Lisa Rogelio [place] [address] [place] [address] 12/22/2024 Tess Charles Pre-op evaluation Z01.818 Main [address] [place] [id number] 12/22/2024 Tess Charles Main [address] [place] [id number] 12/30/2024 Tess Charles Primary hypertension I10 [address] [id number] 01/01/2025 Tess Charles Primary hypertension I10 Assessments Encounter Date Diagnosis (ICD Code) Assessment Notes Treatment Notes Treatment Clinical Notes Section Notes 02/21/2024 GERD (gastroesophageal reflux disease) (ICD-10 - K21.9) Comment:sympt oms stable. continue PPI as needed., GERD stable. Will continue current medications. F/u 6 months & PRN 02/21/2024 Primary hypertension (ICD-10 - I10) HTN stable. Will continue current medications. Encouraged healthy diet and exercise. F/u 6 months & PRN 04/11/2024 Primary hypertension (ICD-10 - I10) 04/29/2024 Primary hypertension (ICD-10 - I10) 05/12/2024 Finger injury (ICD-10 - S69.90XA) Left index finger scar at metacarpophalangeal joint well healed but noted to have swelling and erythema around it which could be localized infection. I will treat with Antibiotic. Also with her numbness, Differential include but not limited to damages of nerve with the injury, I have low concern for decreased blood flow as her finger appeared pink in color, warm and good capillary refill. I discussed about referral to hand surgeon but nearest is in [place] which is far for her. I will put in a referral for Ortho and see if they can evaluate it as its near for her. 06/03/2024 Hyperlipidemia, unspecified hyperlipidemia type (ICD-10 - E78.5) need refill as leaving for [place] for 3 months. will get blood work done 06/03/2024 Primary hypertension (ICD-10 - I10) BP noted to be elevated. She is leaving for [place] for 3 months thats why I will not do any changes in medications Advised to check BP at home and keep a record and see a doctor in [place]. Discussed having diet low in salt Discussed reassuring vs non reassuring symptoms and when to go to ER 10/08/2024 Primary hypertension (ICD-10 - I10) 10/28/2024 GERD (gastroesophageal reflux disease) (ICD-10 - K21.9) 10/29/2024 Primary hypertension (ICD-10 - I10) 12/22/2024 Pre-op evaluation (ICD-10 - Z01.818) 12/22/2024 Knee pain, chronic, left (ICD-10 - M25.562) patient cleared for surgery form completed and faxed 12/22/2024 Pre-op evaluation (ICD-10 - Z01.818) 12/30/2024 Primary hypertension (ICD-10 - I10) 01/01/2025 Primary hypertension (ICD-10 - I10) 10/29/2024 Hyperlipidemia, unspecified hyperlipidemia type (ICD-10 - E78.5) 10/29/2024 Medication refill (ICD-10 - Z76.0) 10/28/2024 Medication refill (ICD-10 - Z76.0) 02/21/2024 Hyperlipidemia, unspecified hyperlipidemia type (ICD-10 - E78.5) Pt is stable on current medications. Will continue current medications. F/u 6 months & PRN 06/03/2024 GERD (gastroesophageal reflux disease) (ICD-10 - K21.9) 06/03/2024 Medication refill (ICD-10 - Z76.0) 02/21/2024 Primary osteoarthritis of left knee (ICD-10 - M17.12) Pt to continue to f/u with Ortho 10/28/2024 Hyperlipidemia, unspecified hyperlipidemia type (ICD-10 - E78.5) 10/29/2024 Screening for breast cancer (ICD-10 - Z12.39) 10/29/2024 Colon cancer screening declined (ICD-10 - Z53.20) 02/21/2024 BMI 32.0-32.9,adult (ICD-10 - Z68.32) Body Mass Index: Care Instructions material was printed 02/21/2024 Obesity, unspecified (ICD-10 - E66.9) 10/29/2024 Dietary counseling (ICD-10 - Z71.3) 10/29/2024 Exercise counseling (ICD-10 - Z71.82) 10/29/2024 BMI 32.0-32.9,adult (ICD-10 - Z68.32) Plan Of Treatment Pending Test Test Name Order Date Electrocardiogram (ECG) 12/22/2024 LIPID PANEL WITH REFLEX TO DIRECT LDL TSH + FREE T4 PROFILE 10/29/2024 COMPREHENSIVE METABOLIC PANEL WITH GFR 0 10/29/2024 CBC NO DIFF 10/29/2024 CBC AND AUTOMATED DIFFERENTIAL COMPREHENSIVE METABOLIC PANEL 12/22/2024 MAMM SCREENING BILATERAL W CAD 5 CHEST 2 VWS 12/22/2024 Insurance Providers Payer Name Payer Address Payer Phone Subscriber Number Group Number Insured Name Patient Relationship to Insured Coverage Start Date Coverage End Date [facility] Medicare Advantage [facility] [address] [address] [place] [address] [id number] Mary Lou Pineda Self - patient is the insured 5 Medical (General) History Medical History History ICD Code Mixed hyperlipidemia Arthritis GERD (gastroesophageal reflux disease) Hypertension Obesity Osteoarthritis of shoulder Osteoarthritis of knee Benign positional vertigo (resolved 05/09) undefined Seasonal allergies (resolved 02/22/2024) undefined Surgical History Surgery Date(Month/Year) plastic surgery under chin 08/2022 Hospitalization History Reason Date(Month/Year) see above 08/2022
--- OUTSIDE RECORDS SUMMARY | 2025-02-06 14:00 | XMS_ITS | Encounter Summary ---
Author Organization [facility] Address [address] [place] [address] Care Team Providers Care Sample Wrapper Name Role Phone Lin Vega MD Unavailable Rosmery Hernandez DO Primary Care Provider [phone] Encounter Details Date Type Department Care Team (Late st Contact Info) Description 01/30/2025 Telephone [facility] [address] [phone] Miles Norman PA [address] [place] [address] Social History Tobacco Use Types Packs/Day Years [...] on file documented as of this encounter Miscellaneous Notes * Telephone Encounter - LUCAS Krishna - 01/30/2025 12:43 PM EDT onelia Thompson therapist- pt needing pain med refill. Oarrs reviewed. RX sent to pharmacy. Please notify pt. Take least effective dose for pain control. documented in this encounter Plan of Treatment Upcoming Encounters Date Type Department Care Team (Late st Contact Info) Description 02/11/2025 10:00 AM EDT Treatment [facility] [address] [facility] [place] [phone] Tracy Villaseñor, JEWELL 02/13/2025 10:30 AM EDT Treatment [facility] [address] [facility] [place] [address] Jerry Galvin, PT [address] [facility] [place] [address] 02/16/2025 10:30 AM EDT Treatment [facility] [address] [facility] [place] [phone] Jerry Galvin, PT [address] [facility] [place] [address] 02/16/2025 3:30 PM EDT Office Visit [facility] [address] [place] [address] Hunter Winters, VETERINARY ASSISTANT TECHNICIAN [address] [place] [address] 02/19/2025 10:30 AM EDT Treatment [facility] [address] [place] [phone] Christy Meléndez, DOG BREEDER documented as of this encounter Visit Diagnoses Diagnosis Post-op pain Other acute postoperative pain Primary osteoarthritis of left knee documented in this encounter Care Teams Sample Wrapper Relationship Specialty Start Date End Date Rosmery Hernandez DO [address] [place] [address] PCP - General Family Medicine 08/14/23 Lin Vega MD [address] [place] [address] Referring Physician Family Medicine 08/14/23 documented as of this encounter
--- OUTSIDE RECORDS SUMMARY | 2025-02-06 14:00 | XMS_ITS | Clinical Summary ---
Author Organization [facility] Address [address] [place] [address] Care Team Providers Care Business Operations Consultant Name Role Phone Lin Vega MD Unavailable Rosmery Hernandez DO Primary Care Provider [phone] Allergies No known active allergies Medications amLODIPine (Norvasc) 5 MG tablet Take 5 mg by mouth Daily Active atorvastatin (Lipitor) 20 MG tablet Take 20 mg by mouth Daily 08/07/19 24 Active losartan (Cozaar) 100 MG tablet Take 100 mg by mouth Daily 08/07/19 24 Active sulindac (Clinoril) 200 MG tablet Take 200 mg by mouth in the morning and 200 mg in the evening. Active Misc. Devices miscIndications:Pr e-op evaluation Dispense: Front Wheeled walker use 90 days. Ht: 5'1 Weight: 186LB 1 Units 12/09/19 25 Active Iron Polysacch Uoemp-V98-VF (Poly-Iron 150 Forte) 150-0.025-1 MG capsuleIndications :Pre-op evaluation Take 1 tablet by mouth Daily 30 capsule 1 12/09/19 25 025 oxyCODONE-acetamin ophen (Percocet) 5-325 MG tabletIndications: Post-op pain,Primary osteoarthritis of left knee Take 1 tablet by mouth every 6 (six) hours if needed for moderate pain for up to 5 days 20 tablet 01/05/20 25 025 Discontinu ed(Reorder ) oxyCODONE-acetamin ophen (Percocet) 5-325 MG tabletIndications: Post-op pain,Primary osteoarthritis of left knee Take 1 tablet by mouth every 6 (six) hours if needed for moderate pain for up to 5 days 20 tablet 01/13/20 25 025 Discontinu ed(Reorder ) oxyCODONE-acetamin ophen (Percocet) 5-325 MG tabletIndications: Post-op pain,Primary osteoarthritis of left knee Take 1 tablet by mouth every 6 (six) hours if needed for moderate pain for up to 5 days 20 tablet 01/17/20 25 025 Discontinu ed(Reorder ) oxyCODONE-acetamin ophen (Percocet) 5-325 MG tabletIndications: Post-op pain,Primary osteoarthritis of left knee Take 1 tablet by mouth every 6 (six) hours if needed for moderate pain for up to 7 days Do not start before January 21, 2025. 28 tablet 01/22/20 25 025 Discontinu ed(Reorder ) oxyCODONE-acetamin ophen (Percocet) 5-325 MG tabletIndications: Post-op pain,Primary osteoarthritis of left knee Take 1 tablet by mouth every 6 (six) hours if needed for moderate pain for up to 5 days 20 tablet 01/31/20 25 025 Active Problems Problem Noted Date Diagnosed Date Primary osteoarthritis of left knee 01/11/2025 Acute postoperative pain of left knee 01/11/2025 Status post left knee replacement 01/11/2025 Encounters Date Type Department Care Team Description 2025 11:30 AM EDT Treatment [facility] [address] [place] [address] Rafia Shields PTA Primary osteoarthritis of left knee (Primary Dx); Acute postoperative pain of left knee; Status post total knee replacement, left 2025 Bamboo flowsheet [facility] [address] [place] [address] Rafia Shields PTA 2025 Travel 02/03/2025 4:00 PM EDT Treatment [facility] [address] [place] [address] Jerry Galvin, PT Primary osteoarthritis of left knee (Primary Dx); Acute postoperative pain of left knee; Status post total knee replacement, left 02/03/2025 Travel 02/02/2025 Travel 01/30/2025 11:00 AM EDT [facility] [address] [place] [address] Antonette Li, PT Primary osteoarthritis of left knee (Primary Dx); Acute postoperative pain of left knee; Status post left knee replacement 01/30/2025 Telephone [facility] [address] [facility] [address] [place] [address] Miles Norman PA 01/28/2025 11:00 AM EDT [facility] [address] [place] [address] Antonette Li, PT Primary osteoarthritis of left knee (Primary Dx); Acute postoperative pain of left knee; Status post left knee replacement 01/27/2025 Travel 01/26/2025 11:00 AM EDT Clinical Support [facility] [address] [place] [address] Antonette Li, PT Primary osteoarthritis of left knee (Primary Dx); Acute postoperative pain of left knee; Status post left knee replacement 01/23/2025 10:00 AM EDT [facility] [address] [place] [address] Antonette Li, PT Primary osteoarthritis of left knee (Primary Dx); Acute postoperative pain of left knee; Status post left knee replacement 01/23/2025 Travel 01/21/2025 12:00 PM EDT [facility] [address] [place] [address] Antonette Li, PT Primary osteoarthritis of left knee (Primary Dx); Acute postoperative pain of left knee; Status post left knee replacement 01/20/2025 Bamboo flowsheet [facility] [address] [place] [address] Antonette Li, PT 01/20/2025 Travel 01/19/2025 1:00 PM EDT [facility] [address] [place] [address] Hunter Winters, NURSE TRANSPLANT Status post total left knee replacement (Primary Dx); Post-op pain; Primary osteoarthritis of left knee 01/19/2025 11:50 AM EDT Clinical Support [facility] [address] [facility] [place] [address] [phone] Antonette Li, PT Primary osteoarthritis of left knee (Primary Dx); Acute postoperative pain of left knee; Status post left knee replacement 01/19/2025 Travel 01/16/2025 11:00 AM EDT Clinical Support [facility] [address] [place] [address] Antonette Li, PT Primary osteoarthritis of left knee (Primary Dx); Acute postoperative pain of left knee; Status post left knee replacement 01/16/2025 Telephone [facility] [address] [facility] [address] [place] [address] Miles Norman, PA 01/15/2025 Bamboo flowsheet [facility] [address] [place] [address] Antonette Li, PT 01/15/2025 Travel 01/14/2025 11:00 AM EDT Clinical Support [facility] [address] [place] [address] Antonette Li, PT Primary osteoarthritis of left knee (Primary Dx); Acute postoperative pain of left knee; Status post left knee replacement 01/13/2025 Telephone [facility] [address] [place] [address] Jr. Andrea Canada, DO handicapped placerin 01/12/2025 12:00 PM EDT Clinical Support [facility] [address] [place] [address] Antonette Li, PT Primary osteoarthritis of left knee (Primary Dx); Acute postoperative pain of left knee; Status post left knee replacement 01/12/2025 [facility] [address] [facility] [place] [address] Hunter Winters, NURSE TRANSPLANT 01/11/2025 Bamboo flowsheet [facility] [address] [place] [address] Antonette Li, PT 01/11/2025 Travel 01/11/2025 Plan of Care Documentation [facility] [address] [place] [address] 01/09/2025 11:15 AM EDT Clinical Support [facility] [address] [place] [address] Antonette Li M, PT Primary osteoarthritis of left knee (Primary Dx); Acute postoperative pain of left knee; Status post left knee replacement 01/08/2025 Telephone [facility] [address] [place] [address] Jr. Andrea Canada, DO daughter called to get extention for her FMLA to care for 01/08/2025 Telephone [facility] [address] [place] [address] Chata Grewal MA 01/03/2025 Refill [facility] [place] [address] Hunter Winters, NURSE TRANSPLANT Post-op pain (Primary Dx); Primary osteoarthritis of left knee 12/31/2024 Telephone [facility] [place] [address] Jr. Andrea Canada, DO 12/17/2024 Orders Only [facility] [place] [address] Jr. Andrea Canada, DO 12/08/2024 10:30 AM EDT Office Visit [place] [address] [place] [address] Hunter Winters NP Primary osteoarthritis of left knee; Pre-op evaluation 12/08/2024 Bamboo flowsheet [facility] [place] [address] Hunter Winters NP 12/08/2024 Travel from Last 3 Months Family History Relation Name Status Comments Father Mother Social History Tobacco Use Types Packs/Day Years Used Date Smoking Tobacco: Never Smokeless Tobacco: Never Tobacco Cessation:Counseling Given: Not Answered Alcohol Use Standard Drinks/Week Comments Not Currently 0 (1 standard drink = 0.6 oz pur e alcohol) Comments Unknown Sex and Gender Information Value Date Recorded Sex Assigned at Not on file Legal Sex Female 8:25 PM EDT Gender Identity Not on file Sexual Orientation Not on file Last Filed Vital Signs Vital Sign Reading Time Taken Comments Blood Pressure 161/72 05/27/2019 12:00 PM EST Pulse - - Temperature - - Respiratory Rate - - Oxygen Saturation - - Inhaled Oxygen Concentration - - Weight 84.4 kg (186 lb) 12/08/2024 10:30 AM EDT Height 154.9 cm (5' 1 ) 12/08/2024 10:30 AM EDT Body Mass Index 35.14 12/08/2024 10:30 AM EDT Plan of Treatment Upcoming Encounters Date Type Department Care Team (Late st Contact Info) Description 02/11/2025 10:00 AM EDT Treatment [facility] [address] [place] [address] Tracy Villaseñor, JEWELL 02/13/2025 10:30 AM EDT Treatment [facility] [place] [address] Jerry Galvin, PT [address] [place] [address] 02/16/2025 10:30 AM EDT Treatment [facility] [address] [place] [address] Jerry Galvin, PT [address] [facility] [place] [address] 02/16/2025 3:30 PM EDT Office Visit [facility] [address] [facility] [place] [address] Hunter Winters, NURSE TRANSPLANT [address] [place], [place] [address] 02/19/2025 10:30 AM EDT Treatment [facility] [address] [place] [address] Christy Meléndez PTA Health Maintenance Due Date Last Done Comments Pneumococcal Vaccine: 65+ Years (1 of 1 - PCV) 998 Influenza Vaccine (#1) 2025 Procedures Procedure Name Priority Date/Time Associated Diagnosis Comments URINALYSIS, MANUAL WITH SCOPE Routine 12/17/2024 8:48 AM EDT from Last 3 Months Results * Urinalysis, manual with scope (12/17/2024 8:48 AM EDT) Urine Urine specimen obtained by clean catch procedure / Unknown Jr. Andrea Canada DO LAB URINE ORDERABLES Fi nal Result from Last 3 Months Insurance [employer] MEDICARE Advance Directives Documents on File Type Date Recorded Patient Salt Machine Operator Expl anation Advance Directives and Living Will 08/15/2023 2:10 PM 2023-08-14 Supplemen yanira Log (Stratus) Advance Directives and Living Will 08/15/2023 2:09 PM 2023-08-14 Communica tion Assessment Form (Stratus) Care Teams Business Operations Consultant Relationship Specialty Start Date End Date Rosmery Hernandez DO [address] [place], [place] [phone] PCP - General Family Medicine 08/14/23 Lin Vega MD [address] [place], [place] [address] Referring Physician Family Medicine 08/14/23
--- OUTSIDE RECORDS SUMMARY | 2025-02-06 14:00 | XMS_ITS | Encounter Summary ---
Author Organization [facility] Address [address] [place] [address] Care Team Providers Care Residential Carpenter Name Role Phone Lin Veag MD Unavailable Rosmery Hernandez DO Primary Care Provider [phone] Encounter Details Date Type Department Care Team (Latest Contact Info) Description 02/03/2025 Travel Social History Tobacco Use Types Packs/Day Years [...] as of this encounter Plan of Treatment Upcoming Encounters Date Type Department Care Team (Late st Contact Info) Description 02/11/2025 10:00 AM EDT Treatment [facility] [address] [place] [address] Tracy Villaseñor PTA 02/13/2025 10:30 AM EDT Treatment [facility] [address] [place] [address] Jerry Galvin, PT [address] [place] [address] 02/16/2025 10:30 AM EDT Treatment [facility] [address] [place] [address] Jerry Galvin, PT [address] [facility] [address] 02/16/2025 3:30 PM EDT Office Visit [facility] [address] [facility] [address] Hunter Winters, PEDIATRICS TEACHER [address] [place], [place] [address] 02/19/2025 10:30 AM EDT Treatment [place] [address] [place] [address] Christy Meléndez PTA documented as of this encounter Visit Diagnoses Not on filedocumented in this encounter Care Teams Residential Carpenter Relationship Specialty Start Date End Date Rosmery Hernandez DO [address] [place] [address] PCP - General Family Medicine 08/14/23 Lin Vega MD [address] [place] [address] Referring Physician Family Medicine 08/14/23 documented as of this encounter
--- OUTSIDE RECORDS SUMMARY | 2025-02-06 14:00 | XMS_ITS | Encounter Summary ---
Author Organization [facility] Address [address] [facility] [place] [address] Care Team Providers Care Timber Inspector Name Role Phone Lin Vega MD Unavailable Rosmery Hernandez DO Primary Care Provider [phone] Encounter Details Date Type Department Care Team (Late Contact Info) Description 2025 Bamboo flowsheet [facility] [address] [place] [address] Rafia Shields PTA [address] [place], [place] [phone] Social History Tobacco Use Types Packs/Day Years [...] Encounters Date Type Department Care Team (Late Contact Info) Description 02/11/2025 10:00 AM EDT Treatment [place] [address] [place] [address] Tracy Villaseñor PTA 02/13/2025 10:30 AM EDT Treatment [place] [address] [place] [address] Jerry Galvin, PT [address] [place] [address] 02/16/2025 10:30 AM EDT Treatment [facility] [address] [place] [address] Jerry Galvin, PT [address] [place] [address] 02/16/2025 3:30 PM EDT Office Visit [facility] [address] [place] [address] Hunter Winters, TALENT ACQUISITION RELATIONSHIP MANAGER [address] [place] [address] 02/19/2025 10:30 AM EDT Treatment [facility] [address] [place] [address] Christy Meléndez PTA documented as of this encounter Visit Diagnoses Not on filedocumented in this encounter Care Teams Timber Inspector Relationship Specialty Start Date End Date Rosmery Hernandez DO [address] [place] [address] PCP - General Family Medicine 08/14/23 Lin Vega MD [address] [place] [address] Referring Physician Family Medicine 08/14/23 documented as of this encounter
--- OUTSIDE RECORDS SUMMARY | 2025-02-06 14:00 | XMS_ITS | Encounter Summary ---
Author Organization [facility] Address [address] [place] [address] Care Team Providers Care Career Representative Name Role Phone Lin Vega MD Unavailable Rosmery Hernandez DO Primary Care Provider [phone] Encounter Details Date Type Department Care Team (Late Contact Info) Description 12/17/2024 Orders Only [facility] [address] [place] [address] Jr. Andrea Canada DO [address] [address] Social History Tobacco Use Types Packs/Day Years [...] Info) Description 02/11/2025 10:00 AM EDT Treatment [place] [address] [place] [address] Tracy Villaseñor PTA 02/13/2025 10:30 AM EDT Treatment [place] [address] [place] [address] Jerry Galvin, PT [address] [place] [address] 02/16/2025 10:30 AM EDT Treatment [facility] [address] [place] [address] Jerry Galvin, PT [address] [place] [address] 02/16/2025 3:30 PM EDT Office Visit [facility] [address] [place] [address] Hunter Winters, FERRY HAND [address] [place], [place] [address] 02/19/2025 10:30 AM EDT Treatment [place] [address] [place] [address] Christy Meléndez PTA documented as of this encounter Procedures Procedure Name Priority Date/Time Associated Diagnosis Comments URINALYSIS, MANUAL WITH SCOPE Routine 12/17/2024 8:48 AM EDT documented in this encounter Results * Urinalysis, manual with scope (12/17/2024 8:48 AM EDT) Urine Urine specimen obtained by clean catch procedure / Unknown Result [facility] Andrea Canada DO LAB URINE ORDERABLES Fi nal Result documented in this encounter Visit Diagnoses Not on filedocumented in this encounter Care Teams Career Representative Relationship Specialty Start Date End Date Rosmery Hernandez DO [address] [place] [address] PCP - General Family Medicine 08/14/23 Lin Vega MD [address] [place] [address] Referring Physician Family Medicine 08/14/23 documented as of this encounter
--- OUTSIDE RECORDS SUMMARY | 2025-02-06 14:00 | XMS_ITS | Clinical Summary ---
Author Organization [employer] tem Address [id number] [address] [place] [address] Care Team Providers Care Waste Picker Name Role Phone EliezerRosmery magaña Primary Care Provider Allergies No known active allergies Medications losartan (COZAAR) 50 mg tablet Take 100 mg by mouth daily. Active atorvastatin (LIPITOR) 10 mg tablet Take 10 mg by mouth nightly. Active amLODIPine (NORVASC) 5 mg tablet Take 5 mg by mouth daily. Active omeprazole (PriLOSEC) 40 mg capsule Take 40 mg by mouth daily. Active sulindac (CLINORIL) 200 mg tablet Take 200 mg by mouth 2 (two) times a day. Active oxymetazoline (AFRIN) 0.05 % nasal spray Administer 2 sprays into each nostril 2 (two) times a day. 30 mL 1 Active phenol-phenolat e sodium (CHLORASEPTIC) aerosol,spray 2 sprays by mucous membrane route every 2 (two) hours as needed (sore throat). 177 mL 1 Active Active Problems Problem Noted Date Diagnosed Date Obesity (BMI 30.0-34.9) 11/25/2020 Essential hypertension 11/25/2020 Encounters Date Type Department Care Team Description 12/22/2024 Orders Only INTERFACE-ONLY Tess Trinidad APRN-FNP Encounter for other preprocedural examination 12/22/2024 Orders Only INTERFACE-ONLY Tess Trinidad APRN-FNP Encounter for other preprocedural examination from Last 3 Months Immunizations Immunization Administration Dates Next Due Tdap 04/13/2024 Family History Medical History Relation Name Comments Heart disease Mother Relation Name Status Comments Father Mother Social History Tobacco Use Types Packs/Day Years Used Date Smoking Tobacco: Never Smokeless Tobacco: Never Tobacco Cessation:Counseling Given: No Alcohol Use Standard Drinks/Week Comments Never 0 (1 standard drink = 0.6 oz pur e alcohol) Childcare Answer Date Recorded Childcare Unknown 12/18/2018 Employment Answer Date Recorded Employment Unknown 12/18/2018 Hunger Screening Answer Date Recorded Within the past 12 months we worried whether our food would run out before we got money to buy more. Never True 04/22/2024 Within the past 12 months th e food we bought just didn't last and we didn't have money to get more. Never True 04/22/2024 Purpose - Life Answer Date Recorded Purpose and direction in life Unknown Comments No Sex and Gender Information Value Date Recorded Sex Assigned at Not on file Legal Sex Female 12:01 PM EDT Gender Identity Not on file Sexual Orientation Not on file Last Filed Vital Signs Vital Sign Reading Time Taken Comments Blood Pressure 143/63 04/22/2024 4:33 PM EDT Pulse 72 04/22/2024 4:32 PM EDT Temperature 36.7 C (98.1 F) 04/22/2024 4:32 PM EDT Respiratory Rate 15 04/22/2024 4:32 PM EDT Oxygen Saturation 100% 04/22/2024 4:32 PM EDT Inhaled Oxygen Concentration - - Weight 83.9 kg (185 lb) 04/13/2024 4:00 PM EDT Height 152.4 cm (5') 04/13/2024 4:00 PM EDT Body Mass Index 36.13 04/13/2024 4:00 PM EDT Plan of Treatment Health Maintenance Due Date Last Done Comments Depression Screening 1962 Zoster (Shingles) Vaccine (1 of 2) 02/04/1998 Fall Risk Screening 02/04/2013 COVID-19 Vaccine ( season) 03/09/202403/2021, 12/16/2020 Influenza Vaccine 03/09/2025 Tobacco Screening 04/13/2025 04/13/2024 DTaP,Tdap and Td Vaccines (3 - Td or Tdap) 04/13/2034 04/13/2024, 03/18/2016 Medical Devices Not on file Insurance MEDICARE [facility] MEDICARE Care Teams Waste Picker Relationship Specialty Start Date End Date Rosmery Hernandez DO [address] [place] [address] PCP - General Family Medicine 04/13/24
--- OUTSIDE RECORDS SUMMARY | 2025-02-06 14:00 | XMS_ITS | Encounter Summary ---
Author Organization [facility] Address [address] [place] [address] Care Team Providers Care Studio Couch Frame Builder Name Role Phone Lin Vega MD Unavailable Rosmery Hernandez DO Primary Care Provider [phone] Encounter Details Date Type Department Care Team (Latest Contact Info) Description 01/27/2025 Travel Social History Tobacco Use Types Packs/Day [...] AM EDT Treatment [facility] [address] [place] [address] Tracy Villaseñor PTA 02/13/2025 10:30 AM EDT Treatment [facility] [address] [place] [address] Jerry Galvin, PT [address] [place] [address] 02/16/2025 10:30 AM EDT Treatment [facility] [address] [place] [address] Jerry Galvin, PT [address] [facility] [place] [address] 02/16/2025 3:30 PM EDT Office Visit [facility] [address] [facility] [place] [address] Hunter Winters, DRUG DEPARTMENT WORKER [address] [place], [place] [address] 02/19/2025 10:30 AM EDT Treatment [place] [address] [place] [address] Christy Meléndez PTA documented as of this encounter Visit Diagnoses Not on filedocumented in this encounter Care Teams Studio Couch Frame Builder Relationship Specialty Start Date End Date Rosmery Hernandez DO [address] [place] [address] PCP - General Family Medicine 08/14/23 Lin Vega MD [address] [place] [address] Referring Physician Family Medicine 08/14/23 documented as of this encounter
--- OUTSIDE RECORDS SUMMARY | 2025-02-06 14:00 | XMS_ITS | Encounter Summary ---
Author Organization [facility] Address [address] [place] [address] Care Team Providers Care Gear Machine Operator General Name Role Phone Lin Vega MD Unavailable Rosmery Hernandez DO Primary Care Provider [phone] Encounter Details Date Type Department Care Team (Latest Contact Info) Description 02/02/2025 Travel Social History Tobacco Use Types Packs/Day [...] EDT Treatment [facility] [address] [place] [address] Tracy Villaseñor PTA 02/13/2025 10:30 AM EDT Treatment [facility] [address] [place] [address] Jerry Galvin, PT [address] [place] [address] 02/16/2025 10:30 AM EDT Treatment [facility] [address] [place] [address] Jerry Galvin, PT [address] [facility] [place] [address] 02/16/2025 3:30 PM EDT Office Visit [facility] Orthopaedics [address] [place] [address] Hunter Winters, OPERATIONS ACCOUNTANT [address] [place], [place] [id number] 02/19/2025 10:30 AM EDT Treatment [place] [address] [place] [address] Christy Meléndez PTA documented as of this encounter Visit Diagnoses Not on filedocumented in this encounter Care Teams Gear Machine Operator General Relationship Specialty Start Date End Date Rosmery Hernandez DO [address] [place] [address] PCP - General Family Medicine 08/14/23 Lin Vega MD [address] [place] [address] Referring Physician Family Medicine 08/14/23 documented as of this encounter
--- OUTSIDE RECORDS SUMMARY | 2025-02-06 14:00 | XMS_ITS | Encounter Summary ---
Author Organization [facility] Address [address] [place] [address] Care Team Providers Care Senior User Experience Architect Name Role Phone Lin Vega MD Unavailable Rosmery Hernandez DO Primary Care Provider [phone] Encounter Details Date Type Department Care Team (Latest Contact Info) Description 2025 Travel Social History Tobacco Use Types Packs/Day [...] Info) Description 02/11/2025 10:00 AM EDT Treatment [facility] [address] [place] [address] Tracy Villaseñor PTA 02/13/2025 10:30 AM EDT Treatment [facility] [address] [place] [address] Jerry Galvin, PT [address] [place] [address] 02/16/2025 10:30 AM EDT Treatment [facility] [address] [place] [address] Jerry Galvin, PT [address] [facility] [place] [address] 02/16/2025 3:30 PM EDT Office Visit [facility] Orthopaedics [address] [facility] [place] [address] Hunter Winters, ASSISTANT DIRECTOR OF SECURITY [address] [place], [place] [address] 02/19/2025 10:30 AM EDT Treatment [place] [address] [place] [address] Christy Meléndez PTA documented as of this encounter Visit Diagnoses Not on filedocumented in this encounter Care Teams Senior User Experience Architect Relationship Specialty Start Date End Date Rosmery Hernandez DO [address] [place] [address] PCP - General Family Medicine 08/14/23 Lin Vega MD [address] [place] [address] Referring Physician Family Medicine 08/14/23 documented as of this encounter
--- OUTSIDE RECORDS SUMMARY | 2025-02-06 14:00 | XMS_ITS | Encounter Summary ---
Author Organization [facility] Address [address] [place] [address] Care Team Providers Care Pharmacy Scheduler Name Role Phone Lin Vega MD Unavailable Rosmery Hernandez DO Primary Care Provider [phone] Encounter Details Date Type Department Care Team (Latest Contact Info) Description 01/23/2025 Travel Social History Tobacco Use Types Packs/Day [...] Info) Description 02/11/2025 10:00 AM EDT Treatment [facility] [address] [place] [address] Tracy Villaseñor PTA 02/13/2025 10:30 AM EDT Treatment [facility] [address] [place] [address] Jerry Galvin, PT [address] [place] [address] 02/16/2025 10:30 AM EDT Treatment [facility] [address] [place] [address] Jerry Galvin, PT [address] [facility] [place] [address] 02/16/2025 3:30 PM EDT Office Visit [facility] Orthopaedics [address] [facility] [place] [address] Hunter Winters, FIELD PLACEMENT DIRECTOR [address] [place], [place] [address] 02/19/2025 10:30 AM EDT Treatment [place] [address] [place] [address] Christy Meléndez PTA documented as of this encounter Visit Diagnoses Not on filedocumented in this encounter Care Teams Pharmacy Scheduler Relationship Specialty Start Date End Date Rosmery Hernandez DO [address] [place] [address] PCP - General Family Medicine 08/14/23 Lin Vega MD [address] [place] [address] Referring Physician Family Medicine 08/14/23 documented as of this encounter
--- OUTSIDE RECORDS SUMMARY | 2025-02-06 14:48 | XMS_ITS | Encounter Summary ---
Author Organization [facility] Address [address] [place] [address] Care Team Providers Care Construction Administrator Name Role Phone Lin Vega MD Unavailable Rosmery Hernandez DO Primary Care Provider [phone] Encounter Details Date Type Department Care Team [...] Info) Description 02/11/2025 10:00 AM EDT Treatment [facility] [address] [place] [address] Tracy Villaseñor PTA 02/13/2025 10:30 AM EDT Treatment [facility] [address] [place] [address] Jerry Galvin, PT [address] [place] [address] 02/16/2025 10:30 AM EDT Treatment [facility] [address] [place] [address] Jerry Galvin, PT [address] [facility] [place] [address] 02/16/2025 3:30 PM EDT Office [facility] Orthopaedics [address] [facility] [place] [address] Hunter Winters, ADVERTISING AGENCY MANAGER [address] [place], [place] [phone] 02/19/2025 10:30 AM EDT Treatment [place] [address] [place] [address] Christy Meléndez PTA documented as of this encounter Visit Diagnoses Not on filedocumented in this encounter Care Teams Construction Administrator Relationship Specialty Start Date End Date Rosmery Hernandez DO [address] [place] [address] PCP - General Family Medicine 08/14/23 Lin Vega MD [address] [place] [address] Referring Physician Family Medicine 08/14/23 documented as of this encounter
--- OUTSIDE RECORDS SUMMARY | 2025-02-06 14:48 | XMS_ITS | Encounter Summary ---
Author Organization [facility] Address [address] [place] [address] Care Team Providers Care Heating Element Winder Name Role Phone Lin Vega MD Unavailable Rosmery Hernandez DO Primary Care Provider [phone] Encounter Details Date Type Department Care Team [...] Description 02/11/2025 10:00 AM EDT Treatment [facility] [address] [place] [address] Tracy Villaseñor PTA 02/13/2025 10:30 AM EDT Treatment [facility] [address] [place] [address] Jerry Galvin, PT [address] [place] [address] 02/16/2025 10:30 AM EDT Treatment [facility] [address] [place] [address] Jerry Galvin, PT [address] [facility] [place] [address] 02/16/2025 3:30 PM EDT Office Visit [facility] [address] [facility] [place] [place] [address] Hunter Winters, ASSISTANT PUBLIC DEFENDER [address] [place], [place] [address] 02/19/2025 10:30 AM EDT Treatment [place] [address] [place] [address] Christy Meléndez PTA documented as of this encounter Visit Diagnoses Not on filedocumented in this encounter Care Teams Heating Element Winder Relationship Specialty Start Date End Date Rosmery Hernandez DO [address] [place] [address] PCP - General Family Medicine 08/14/23 Lin Vega MD [address] [place] [address] Referring Physician Family Medicine 08/14/23 documented as of this encounter
--- OUTSIDE RECORDS SUMMARY | 2025-02-06 14:48 | XMS_ITS | Encounter Summary ---
Author Organization [facility] Address [address] [facility] [place] [address] Care Team Providers Care Entry Level Truck Driver Name Role Phone Lin Vega MD Unavailable Rosmery Hernandez DO Primary Care Provider [phone] Encounter Details Date Type Department Care Team (Late Contact Info) Description 2025 Bamboo flowsheet [facility] [address] [place] [address] Rafia Shields PTA [address] [place], [place] [phone] Social History Tobacco Use Types Packs/Day Years [...] Info) Description 02/11/2025 10:00 AM EDT Treatment [place] [address] [place] [address] Tracy Villaseñor PTA 02/13/2025 10:30 AM EDT Treatment [place] [address] [place] [address] Jerry Galvin, PT [address] [place] [address] 02/16/2025 10:30 AM EDT Treatment [facility] [address] [place] [address] Jerry Galvin, PT [address] [place] [address] 02/16/2025 3:30 PM EDT Office Visit [facility] Orthopaedics [address] [place] [address] Hunter Winters, HEALTH PROMOTION MANAGER [address] [place] [address] 02/19/2025 10:30 AM EDT Treatment [facility] [address] [place] [address] Chrisyt Meléndez PTA documented as of this encounter Visit Diagnoses Not on filedocumented in this encounter Care Teams Entry Level Truck Driver Relationship Specialty Start Date End Date Rosmery Hernandez DO [address] [place] [address] PCP - General Family Medicine 08/14/23 Lin Vega MD [address] [place] [address] Referring Physician Family Medicine 08/14/23 documented as of this encounter
--- OUTSIDE RECORDS SUMMARY | 2025-02-06 14:48 | XMS_ITS | Encounter Summary ---
Author Organization [facility] Address [id number] [address] [place] [address] Care Team Providers Care Bisque Brusher Name Role Phone Rosmery Hernandez DO Primary Care Provider [phone] Encounter Details Date Type Department Care Team (Late st Contact Info) Description 09/13/2020 Orders Only [facility] [address] [place] [address] External, Scanning Provider Social History Tobacco Use [...] Multiple labs (04/30/2020) us Scanning Provider External [facility] IMAGING Final Result MANUALLY TRANSCRIBED RESULTS documented in this encounter Visit Diagnoses Not on filedocumented in this encounter Care Teams Bisque Brusher Relationship Specialty Start Date End Date Rosmery Hernandez DO [address] [place] [address] PCP - General Family Medicine 04/13/24 documented as of this encounter
--- OUTSIDE RECORDS SUMMARY | 2025-02-06 14:49 | XMS_ITS | Clinical Summary ---
Author Organization [employer] [facility] Address [id number] [address] [place] [address] Care Team Providers Care Adjuster Electrical Contacts Name Role Phone EliezerRosmery magaña Primary Care [...] Medical Devices Not on file Insurance MEDICARE [facility] MEDICARE Care Teams Adjuster Electrical Contacts Relationship Specialty Start Date End Date Rosmery Hernandez DO [address] [place] [address] PCP - General Family Medicine 04/13/24
--- OUTSIDE RECORDS SUMMARY | 2025-02-06 14:49 | XMS_ITS | Encounter Summary ---
Author Organization [facility] Address [address] [place] [address] Care Team Providers Care Radiophone Operator Name Role Phone Lin Vega MD Unavailable Rosmery Hernandez DO Primary Care Provider [phone] Encounter Details Date Type Department Care Team [...] Info) Description 02/11/2025 10:00 AM EDT Treatment [facility] [address] [place] [address] Tracy Villaseñor PTA 02/13/2025 10:30 AM EDT Treatment [facility] [address] [place] [address] Jerry Galvin, PT [address] [place] [address] 02/16/2025 10:30 AM EDT Treatment [facility] [address] [place] [address] Jerry Galvin, PT [address] [facility] [place] [address] 02/16/2025 3:30 PM EDT Office Visit [facility] 9 [facility] [place] [address] Hunter Winters, PAYROLL AUDITOR [address] [place], [place] [address] 02/19/2025 10:30 AM EDT Treatment [place] [address] [place] [address] Christy Meléndez PTA documented as of this encounter Visit Diagnoses Not on filedocumented in this encounter Care Teams Radiophone Operator Relationship Specialty Start Date End Date Rosmery Hernandez DO [address] [place] [address] PCP - General Family Medicine 08/14/23 Lin Vega MD [address] [place] [address] Referring Physician Family Medicine 08/14/23 documented as of this encounter
--- OUTSIDE RECORDS SUMMARY | 2025-02-06 14:49 | XMS_ITS | Encounter Summary ---
Author Organization [facility] Address [address] [place] [address] Care Team Providers Care Sea Foam Kiss Maker Name Role Phone Lin Vega MD Unavailable Rosmery Hernandez DO Primary Care Provider [phone] Encounter Details Date Type Department Care Team [...] Description 02/11/2025 10:00 AM EDT Treatment [facility] [address] [place] [address] Tracy Villaseñor PTA 02/13/2025 10:30 AM EDT Treatment [facility] [address] [place] [address] Jerry Galvin, PT [address] [place] [address] 02/16/2025 10:30 AM EDT Treatment [facility] [address] [place] [address] Jerry Galvin, PT [address] [facility] [place] [address] 02/16/2025 3:30 PM EDT Office Visit [facility] Orthopa[facility]ics [address] [facility] [address] Hunter Winters, CIGARETTE PAPER TESTER [address] [place], [place] [address] 02/19/2025 10:30 AM EDT Treatment [place] [address] [place] [address] Christy Meléndez PTA documented as of this encounter Visit Diagnoses Not on filedocumented in this encounter Care Teams Sea Foam Kiss Maker Relationship Specialty Start Date End Date Rosmery Hernandez DO [address] [place] [address] PCP - General Family Medicine 08/14/23 Lin Vega MD [address] [place] [address] Referring Physician Family Medicine 08/14/23 documented as of this encounter
--- OUTSIDE RECORDS SUMMARY | 2025-02-06 14:49 | XMS_ITS | Encounter Summary ---
Author Organization [facility] Address [address] [place] [address] Care Team Providers Care Material Mixer Name Role Phone Lin Vega MD Unavailable Rosmery Hernandez DO Primary Care Provider [phone] Encounter Details Date Type Department Care Team (Late st Contact Info) Description 01/30/2025 Telephone [facility] [address] [phone] Miles Norman PA [address] [place] [address] Social History Tobacco Use Types [...] Info) Description 02/11/2025 10:00 AM EDT Treatment [facility] [address] [place] [address] Tracy Villaseñor, JEWELL 02/13/2025 10:30 AM EDT Treatment [facility] [address] [place] [address] Jerry Galvin, PT [address] [facility] [address] 02/16/2025 10:30 AM EDT Treatment [facility] [address] [place] [address] Jerry Galvin, PT [address] [place] [address] 02/16/2025 3:30 PM EDT Office Visit [facility] Orthopaedics [address] [place] [address] Hunter Winters, HOROLOGIST [address] [place] [address] 02/19/2025 10:30 AM EDT Treatment [facility] [address] [place] [address] Christy Meléndez, CENTRAL SUPPLY NURSE documented as of this encounter Visit Diagnoses Diagnosis Post-op pain Other acute postoperative pain Primary osteoarthritis of left knee documented in this encounter Care Teams Material Mixer Relationship Specialty Start Date End Date Rosmery Hernandez DO [address] [place] [address] PCP - General Family Medicine 08/14/23 Lin Vega MD [address] [place] [address] Referring Physician Family Medicine 08/14/23 documented as of this encounter
--- OUTSIDE RECORDS SUMMARY | 2025-02-06 14:49 | XMS_ITS | Clinical Summary ---
Author Organization [facility] Address [address] [place] [address] Care Team Providers Care Military Technician Name Role Phone Lin Vega MD Unavailable Rosmery Hernandez DO Primary Care Provider [phone] Allergies No known active allergies Medications amLODIPine [...] 1 Units 12/09/19 25 Active Iron Polysacch Ellux-Y89-KG (Poly-Iron 150 Forte) 150-0.025-1 MG capsuleIndications :Pre-op [...] Team Description 2025 11:30 AM EDT Treatment [facility] [address] [place] [address] Rafia Shields PTA Primary osteoarthritis of left knee (Primary Dx); Acute postoperative pain of left knee; Status post total knee replacement, left 2025 Bamboo flowsheet [facility] [address] [place] [address] Rafia Shields PTA 2025 Travel 02/03/2025 4:00 PM EDT Treatment [facility] [address] [place] [address] Jerry Galvin, PT Primary osteoarthritis of left knee (Primary Dx); Acute postoperative pain of left knee; Status post total knee replacement, left 02/03/2025 Travel 02/02/2025 Travel 01/30/2025 11:00 AM EDT [facility] [address] [place] [address] Antonette Li, PT Primary osteoarthritis of left knee (Primary Dx); Acute postoperative pain of left knee; Status post left knee replacement 01/30/2025 Telephone [facility] [address] [facility] [address] [place] [address] Miles Norman PA 01/28/2025 11:00 AM EDT [facility] [address] [place] [address] Antonette Li, PT Primary osteoarthritis of left knee (Primary Dx); Acute postoperative pain of left knee; Status post left knee replacement 01/27/2025 Travel 01/26/2025 11:00 AM EDT Clinical Support [facility] [address] [place] [address] Antonette Li, PT Primary osteoarthritis of left knee (Primary Dx); Acute postoperative pain of left knee; Status post left knee replacement 01/23/2025 10:00 AM EDT [facility] [address] [place] [address] Antonette Li, PT Primary osteoarthritis of left knee (Primary Dx); Acute postoperative pain of left knee; Status post left knee replacement 01/23/2025 Travel 01/21/2025 12:00 PM EDT [facility] [address] [place] [address] Antonette Li, PT Primary osteoarthritis of left knee (Primary Dx); Acute postoperative pain of left knee; Status post left knee replacement 01/20/2025 Bamboo flowsheet [facility] [address] [place] [address] Antonette Li, PT 01/20/2025 Travel 01/19/2025 1:00 PM EDT [facility] [address] [place] [address] Hunter Winters, MUSIC HISTORIAN Status post total left knee replacement (Primary Dx); Post-op pain; Primary osteoarthritis of left knee 01/19/2025 11:50 AM EDT Clinical Support [facility] [address] [place] [address] [phone] Antonette Li, PT Primary osteoarthritis of left knee (Primary Dx); Acute postoperative pain of left knee; Status post left knee replacement 01/19/2025 Travel 01/16/2025 11:00 AM EDT Clinical Support [facility] [address] [place] [address] Antonette Li, PT Primary osteoarthritis of left knee (Primary Dx); Acute postoperative pain of left knee; Status post left knee replacement 01/16/2025 Telephone [facility] [address] [facility] [address] [place] [address] Miles Norman, PA 01/15/2025 Bamboo flowsheet [facility] [address] [place] [address] Antonette Li, PT 01/15/2025 Travel 01/14/2025 11:00 AM EDT Clinical Support [facility] [address] [place] [address] Antonette Li, PT Primary osteoarthritis of left knee (Primary Dx); Acute postoperative pain of left knee; Status post left knee replacement 01/13/2025 Telephone [facility] [address] [place] [address] Jr. Andrea Canada, DO handicapped placerin 01/12/2025 12:00 PM EDT Clinical Support [facility] Physical [facility] [address] [place] [address] Antonette Li, PT Primary osteoarthritis of left knee (Primary Dx); Acute postoperative pain of left knee; Status post left knee replacement 01/12/2025 [facility] [address] [facility] [place] [address] Hunter Winters, MUSIC HISTORIAN 01/11/2025 Bamboo flowsheet [facility] Physical [facility] [address] [place] [address] Antonette Li, PT 01/11/2025 Travel 01/11/2025 Plan of Care Documentation [facility] Physical [facility] [address] [place] [address] 01/09/2025 11:15 AM EDT Clinical Support [facility] [address] [place] [address] Antonette Li M, PT Primary osteoarthritis of left knee (Primary Dx); Acute postoperative pain of left knee; Status post left knee replacement 01/08/2025 Telephone [facility] [address] [place] [address] Jr. Andrea Canaad, DO daughter called to get extention for her FMLA to care for 01/08/2025 Telephone [facility] [address] [place] [address] Chata Grewal MA 01/03/2025 Refill [facility] [place] [address] Hunter Winters, MUSIC HISTORIAN Post-op pain (Primary Dx); Primary osteoarthritis of left knee 12/31/2024 Telephone [facility] [place] [address] Jr. Andrea Canada, DO 12/17/2024 Orders Only [facility] [place] [address] Jr. Andrea Canada, DO 12/08/2024 10:30 AM EDT Office Visit [address] [place] [address] Hunter Winters NP Primary osteoarthritis of left knee; Pre-op evaluation 12/08/2024 Bamboo flowsheet [facility] [place] [address] Hunter Winters NP 12/08/2024 Travel from Last [...] Info) Description 02/11/2025 10:00 AM EDT Treatment [facility] [address] [facility] [address] Tracy Villaseñor, JEWELL 02/13/2025 10:30 AM EDT Treatment [facility] [place] [address] Jerry Galvin, PT [address] [place] [address] 02/16/2025 10:30 AM EDT Treatment [facility] [address] [place] [address] Jerry Galvin, PT [address] [facility] [place] [address] 02/16/2025 3:30 PM EDT Office Visit [facility] [address] [facility] [place] [address] Hunter Winters, MUSIC HISTORIAN [address] [place], [place] [phone] 02/19/2025 10:30 AM EDT Treatment [facility] [address] [place] [address] Christy Meléndez PTA Health Maintenance Due Date [...] Documents on File Type Date Recorded 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
--- OUTSIDE RECORDS SUMMARY | 2025-02-06 14:49 | XMS_ITS | Encounter Summary ---
Author Organization [facility] Address [address] [place] [address] Care Team Providers Care Electric Utility Lineworker Name Role Phone Lin Vega MD Unavailable Rosmery Hernandez DO Primary Care Provider [phone] Encounter Details Date Type Department Care Team [...] Info) Description 02/11/2025 10:00 AM EDT Treatment [facility] [address] [place] [address] Tracy Villaseñor PTA 02/13/2025 10:30 AM EDT Treatment [facility] [address] [place] [address] Jerry Galvin, PT [address] [place] [address] 02/16/2025 10:30 AM EDT Treatment [facility] [address] [place] [address] Jerry Galvin, PT [address] [facility] [place] [address] 02/16/2025 3:30 PM EDT Office Visit [facility] [address] [facility] [place] [address] Hunter Winters, GRAVITY PROSPECTING OPERATOR HELPER [address] [place], [place] [address] 02/19/2025 10:30 AM EDT Treatment [place] [address] [place] [address] Christy Meléndez PTA documented as of this encounter Visit Diagnoses Not on filedocumented in this encounter Care Teams Electric Utility Lineworker Relationship Specialty Start Date End Date Rosmery Hernandez DO [address] [place] [address] PCP - General Family Medicine 08/14/23 Lin Vega MD [address] [place] [address] Referring Physician Family Medicine 08/14/23 documented as of this encounter
--- OUTSIDE RECORDS SUMMARY | 2025-02-06 14:49 | XMS_ITS | Encounter Summary ---
Author Organization [facility] Address [address] [place] [address] Care Team Providers Care Sustainability Analyst Name Role Phone Lin Vega MD Unavailable Rosmery Hernandez DO Primary Care Provider [phone] Encounter Details Date Type Department Care Team (Late Contact Info) Description 12/17/2024 Orders Only [facility] [address] [place] [address] Jr. Andrea Canada DO [address] [address] Social History Tobacco Use Types Packs/Day Years [...] Info) Description 02/11/2025 10:00 AM EDT Treatment [place] [address] [place] [address] Tracy Villaseñor PTA 02/13/2025 10:30 AM EDT Treatment [place] [place] [address] Jerry Galvin, PT [address] [place] [address] 02/16/2025 10:30 AM EDT Treatment [facility] [address] [place] [address] Jerry Galvin, PT [address] [place] [address] 02/16/2025 3:30 PM EDT Office Visit [facility] [address] [place] [address] Hunter Winters, PHOTOGRAPHY EDITOR [address] [place], [place] [phone] 02/19/2025 10:30 AM EDT Treatment [address] [place] [address] Christy Meléndez PTA documented as of this encounter Procedures Procedure Name Priority Date/Time Associated Diagnosis Comments URINALYSIS, MANUAL WITH SCOPE Routine 12/17/2024 8:48 AM EDT documented in this encounter Results * Urinalysis, manual with scope (12/17/2024 8:48 AM EDT) Urine Urine specimen obtained by clean catch procedure / Unknown Result [facility] Andrea Canada DO LAB URINE ORDERABLES Fi nal Result documented in this encounter Visit Diagnoses Not on filedocumented in this encounter Care Teams Sustainability Analyst Relationship Specialty Start Date End Date Rosmery Hernandez DO [address] [place] [address] PCP - General Family Medicine 08/14/23 Lin Vega MD [address] [place] [address] Referring Physician Family Medicine 08/14/23 documented as of this encounter
[2025-02-06] MEDS: PANTOPRAZOLE SODIUM 40 MG TABLET.DR PO (14:51)
--- NOTE | 2025-02-06 15:27 | SWNOTE1 ---
SW provided pt's daughter with Xarelto free 30 day trial. SW also provided daughter with MCCANN form in Singaporean, daughter speaks minimal Kyrgyz, grand-daughter not present. Daughter would like to review with pt, but she is having testing done and it will be about 20 mins, SW to come back.
--- NOTE | 2025-02-06 16:04 | SWNOTE1 ---
Pt and daughter requested coal loader to review MCCANN form with pt. SW had coal loader on Ipad. Family Support Specialist was able to verbalize MCCANN form. Pt and daughter did not have any questions. Pt signed form, original given to pt and copy placed in chart.
[2025-02-06] MEDS: DICLOFENAC SODIUM 1% 100 GM TUBE TOPICAL ×2 (17:52→21:09)
[2025-02-06] MEDS: RIVAROXABAN 10 MG TABLET 15 MG PO (21:08)
[2025-02-07] VITALS (7 sets, daily range): BP systolic 148–149; BP diastolic 58–64; PULSE 60–79; TEMP 36.8–36.9; O2SAT 95–96
--- NOTE | 2025-02-07 05:28 | PC.NURSE ---
ipad assistant signal maintainer used via CadenceMD. # for this session [id number]. Lenin was name of assistant signal maintainer.
[2025-02-07] MEDS: PANTOPRAZOLE SODIUM 40 MG TABLET.DR PO (05:36)
[2025-02-07] MEDS: DICLOFENAC SODIUM 1% 100 GM TUBE TOPICAL (05:37)
[2025-02-07 06:47] LABS: Hematocrit 31.1 % (36.0-48.0); Hemoglobin 10.0 g/dL (12.0-16.0); Immature Granulocytes Abs Auto 0.01 10^3/uL (0.00-0.03); Immature Granulocytes Pct Auto 0.1 % (0.0-0.5); Lymphocytes Absolute Auto 1.9 10^3/uL (1.2-3.8); Mean Corpuscular HGB Conc 32.2 g/dL (29.9-35.2); Mean Corpuscular Hemoglobin 28.4 pg (26.7-34.0); Mean Corpuscular Volume 88.4 fL (81.0-99.0); Platelet Count 277 10^3/uL (150-450); Red Blood Count 3.52 10^6/uL (4.20-5.40); White Blood Count 7.5 10^3/uL (4.0-11.0)
--- NOTE | 2025-02-07 07:00 | ECG_ITS ---
[facility] Test Date: 2025-02-07 Pat Name: MEENA NUNEZ Department: Room: [facility] Gender: Female Eligibility Services Representative: : 1950 Requested By: [id number] Order Number: [id number] Reading MD: PAIGE GAINES M.D. Measurements Intervals [place] Rate: 65 P: 91 IN: 179 QRS: 25 QRSD: 74 T: 35 QT: 411 QTc: 430 Interpretive Statements SINUS RHYTHM LOW QRS VOLTAGE IN PRECORDIAL LEADS [QRS DEFLECTION < 1.0 mV IN CHEST LEADS] Borderline ECG Compared to ECG 02/05/2025 23:24:47 Sinus arrhythmia no longer present Electronically Signed On 02-07-2025 21:31:43 EDT by PAIGE GAINES M.D.
[2025-02-07 07:05] LABS: Iron 51.0 ug/dL (50.0-170.0); Percent Iron Saturation 19.8 %; Total Iron Binding Capacity 258.0 ug/dL (250.0-450.0)
[2025-02-07 07:24] LABS: Anion Gap 13.5; Blood Urea Nitrogen 16.0 mg/dL (7.0-18.0); Calcium 9.0 mg/dL (8.5-10.1); Carbon Dioxide 26.7 mmol/L (21.0-32.0); Chloride 107 mmol/L (98-107); Estimated GFR (African America >60 (>=60 mL/min/1.73m^2); Estimated GFR (Non-African Ame >60 (>=60 mL/min/1.73m^2); Glucose 111 mg/dL (74-106); Potassium 4.2 mmol/L (3.5-5.1); Sodium 143 mmol/L (136-145)
[2025-02-07] MEDS: RIVAROXABAN 10 MG TABLET 15 MG PO (08:42)
[2025-02-07] MEDS: AMLODIPINE BESYLATE 5 MG TABLET PO (08:43)
[2025-02-07] MEDS: LOSARTAN POTASSIUM 50 MG TABLET 100 MG PO (08:43)
[2025-02-07] MEDS: ATORVASTATIN CALCIUM 20 MG TABLET PO (08:43)
--- NOTE | 2025-02-07 09:03 | PT.DAILY ---
Physical Therapy Daily Note PT Daily Note/Assess Start: 02/06/25 14:43 Freq: Status: Active Protocol: Document 02/07/25 08:15 JOSE ARMANDO (Rec: 02/07/25 09:02 JOSE ARMANDO [id number]) Physical Therapy Daily Note/Assessment Time In/Time Out Time In 08:17 Time Out 08:40 Subjective Subjective Patient is in bed upon arrival. Patient speaks Setswana but daughter is present to translate, and patient can follow along to limited Arabic with visual cuing. Patient agrees to PT. Reports L knee feels stiff from recent TKA, L shoulder is feeling better but still sore . Therapeutic Exercise Time Therapeutic Exercise 13 Minutes (minutes) Therapeutic Exercise 1 Units Therapeutic Exercise Treatment Therapeutic Exercise Reviewed written handout of L shoulder exercises. Treatment Patient is able to complete them without issues. Denies questions over program, and reports they are helping with shoulder pain. Issued standing B LE exercises for strengthening. Completed 5-10 reps. Therapeutic Activity Time Therapeutic Activity 10 Minutes (minutes) Therapeutic Activity 1 Units Therapeutic Activity Treatment Bed Mobility Ability Modified Independent Chair Transfer Modified Independent Ability Therapeutic Activity Gait 30'x1 150'x1 with RW modified Ind. No LOB. Comments Total Physical Therapy Time Total Therapy 23 Minutes Total Physical 2 Therapy Units Summary Daily Note Summary Focused RX on exercises for B LE strength and L shoulder pain. Patient is pleasant throughout RX and denies questions on exercises. Patient demonstrates modified Ind. with mobility and gait. Would recommend OP PT post acute hospital stay. Patient in chair with call light in reach, all needs met and family present in room.
--- NOTE | 2025-02-07 13:30 | P.DS_ITS ---
DS: Providers Provider Date of admission: 02/06/25 13:50 Primary care physician: Andrea Canada DO Consults: 02/06/25 Consult to Agriculture Manager Routine Reason for consult:: Advanced Directives 02/06/25 13:57 Physical Therapy Eval and Treat Routine Reason for consultation: left frozen shoulder, recent left knee TKA Has provider been notified: Yes Attending physician on discharge: BRIGETTE ESPINOZA Discharging clinician: BRIGETTE ESPINOZA Anticipated date of discharge: 02/07/25 DS: Diagnosis Discharge Diagnosis (1) Bilateral pulmonary embolism: (2) High blood pressure: Qualifiers: Hypertension type: primary hypertension Qualified Code(s): I10 - Essential (primary) hypertension (3) High cholesterol: Plan Bilateral pulmonary emboli. Left lower extremity deep vein thrombosis. Status post recent left total knee arthroplasty. DS: Summary Hospital Course Hospital Course: This is a very pleasant 75-year-old woman who had recently undergone left total knee arthroplasty but was not taking the prophylactic aspirin after surgery. She presented to the emergency room with a sudden onset of shortness of breath accompanied with some dizziness and nausea. CT angiogram of the chest showed multiple pulmonary emboli identified in the distal right main pulmonary artery extending into the right lower lobe and right upper lobe pulmonary artery segments and pulmonary emboli also noted in the left lower lobe pulmonary arteries extending into the lower lingula. There was no saddle embolus identified and she had a normal heart size on the CT scan. She was started on full anticoagulation with Lovenox and 1 mg/kg subcutaneously twice a day. She was placed on hospital on telemetry monitoring in observation status. A venous Doppler ultrasound was positive for deep vein thrombosis in the left posterior tibial vein. On physical examination the patient looks quite good. She has very minimal edema to her left lower extremity and no palpable cords in the left leg. The total knee arthroplasty surgery is healing very well. The midline incision is excellent. She has minimal postoperative edema and pain. While she was here she was able to ambulate with physical therapy. Her anticoagulation was transitioned to Xarelto. The patient was counseled to take her Xarelto perfectly every day. She was counseled not to use aspirin or NSAIDs while on anticoagulation because that would double her bleeding risk. The patient is Scottish-speaking. The patient was accompanied by daughters who preferred to translate for the patient even though Scottish translation services were offered but they did politely declined. The patient has a secondary complaint of pain in her left shoulder. She has some difficulty moving it which has the appearance of a rotator cuff problem. But she may have exacerbated chronic shoulder osteoarthritis while recovering from the recent left total knee arthroplasty. The patient can follow-up with her orthopedic surgeon regarding her left shoulder pain. During hospital stay this was treated with Tylenol and topical Voltaren gel. On the last hospital day the patient was doing well. She was hemodynamically stable. Her pulse was 77 bpm. She has a normal twelve-lead EKG. She had no more sensation of shortness of breath and so she was found to be suitable for discharge. She and her family were provided with the free coupon for the first month of Xarelto. We did not hear back from the family members how much months 2 through 6 of Xarelto are going to cost. Status at Discharge Functional status at discharge: independent ambulation Overall status at discharge: patient is back to baseline Time Spent with Patient Time attestation: Total time spent providing and/or coordinating discharge services: 39. Time spent: less than 30 minutes Exam Narrative Exam Narrative: General: Awake. Alert. Oriented x 3. Pulmonary: Clear to auscultation throughout. No wheezing. No rhonchi. No crackles. Respirations calm and easy and nonlabored. Cardiac: Regular rate and rhythm. No murmurs to auscultation. GI: Normal bowel sounds to auscultation. Lower extremities: Just a trace of edema, as expected, to her left lower extremity below the total knee arthroplasty site. The incision is well-healed. She has minimal edema around this knee replacement site. She was able to ambulate in the hallways and perform very well for the physical therapist. Constitutional Vital Signs, click to edit/add: Last Vital Signs Temp 98.4 F 02/07/25 08:00 Pulse 77 02/07/25 10:00 Resp 20 02/07/25 08:00 BP 149/64 H 02/07/25 08:00 Pulse Ox 95 02/07/25 08:00 O2 Del Method Room Air 02/07/25 08:00 DS: Data Data Completed and Pending Labs on day of discharge: Labs from last 24 hours 02/07/25 06:14 WBC 7.5 RBC 3.52 L Hgb 10.0 L Hct 31.1 L MCV 88.4 MCH 28.4 MCHC 32.2 RDW 13.7 Plt Count 277 MPV 9.7 Neut % (Auto) 59.1 Lymph % (Auto) 25.5 Angelina % (Auto) 9.7 Eos % (Auto) 4.9 Baso % (Auto) 0.7 Neut # (Auto) 4.5 Lymph # (Auto) 1.9 Angelina # (Auto) 0.7 Eos # (Auto) 0.4 Baso # (Auto) 0.1 Abs Immat Gran (auto) 0.01 Imm/Tot Granulo (auto) 0.1 Sodium 143 Potassium 4.2 Chloride 107 Carbon Dioxide 26.7 Anion Gap 13.5 BUN 16.0 Creatinine 0.66 Est GFR ( Amer) >60 Est GFR (Non-Af Amer) >60 BUN/Creatinine Ratio 24.2 Glucose 111 H Calcium 9.0 Iron 51.0 TIBC 258.0 % Saturation 19.8 Discharge Plan Discharge Disposition: Home, Self-Care Condition: Fair Discharge Medications: New acetaminophen [Tylenol] 325 mg Tablet 650 mg PO Q4H PRN (Reason: Pain) Qty: 0 0RF Xarelto DVT-PE Treat 30d Start 15 mg (42)- 20 mg (9) tablets,dose pack See Rx Instructions .ROUTE .COMPLEX Qty: 51 0RF Rx Instructions: take one-15 mg tablet twice daily for 21 days, then one-20 mg tablet once daily; must take with meal/food Xarelto 20 mg tablet 20 mg PO DAILY Qty: 30 5RF Rx Instructions: must administer with evening meal diclofenac sodium 1 % Gel 4 g topical QID Qty: 0 0RF Continued atorvastatin 20 mg tablet 20 mg PO DAILY amlodipine 5 mg tablet 5 mg PO DAILY oxycodone-acetaminophen 5-325 mg tablet 1 tab PO Q6H PRN (Reason: pain) losartan 100 mg tablet 100 mg PO DAILY omeprazole 40 mg capsule,delayed release(DR/EC) 40 mg PO .ACB Print Language: Scottish Patient Instructions: Diclofenac (On the skin), Rivaroxaban (By mouth), Pulmonary Embolism (DC) Forms: Portal Instructions Follow Up Appointments: call Sunday to Follow up with your PCP in one week Follow up Dr Canada for post op knee issues Discharge Date/Time: 02/07/25 11:21
--- NOTE | 2025-02-09 12:09 | SWNOTE1 ---
1st attempt, pt answered but did not speak Irish, attempted daughter, no answer 02/09/25
--- NOTE | 2025-02-09 12:12 | SWNOTE1 ---
SW attempted to call pt to see who her PCP is. Pt did answer, but does not speak Kazakh. SW attempted to call daughter who is listed as contact, no answer.
--- NOTE | 2025-02-09 14:10 | CM.DCFOLLOWU ---
Person spoke with:patient's grand-daughter How are you feeling? she is doing well, getting back to baseline How is your pain?none Did you understand your discharge instructions?yes Do you have any questions about your discharge instructions?no Were you given any prescriptions at discharge?yes Were you able to get your prescriptions filled?yes Do you understand how to take your medications as ordered?yes Do you have any questions about your follow up appointment and do you plan to keep your follow up appointment? No questions. Grand-daughter will call PCP and set up follow up apt. Is there anything else that you would like to discuss?no Questions/Comments/Concerns/Other:none
== END 2025-02-07 11:21 | disposition home or self-care (01) ==
LOC: ER 02-06 02:46 → MS 02-06 14:08
PROVIDERS: Admitting Provider Hospitalist; Emergency Provider Emergency Medicine; PCP Orthopaedic Surgery; Visit Provider Hospitalist
DX: I26.99 Other pulmonary embolism without acute cor pulmonale (principal); I82.442 Acute embolism and thrombosis of left tibial vein; M25.512 Pain in left shoulder; R06.02 Shortness of breath; I10 Essential (primary) hypertension; Z96.652 Presence of left artificial knee joint; E78.00 Pure hypercholesterolemia, unspecified
CPT/HCPCS: 36415; 71275; 80048; 80053; 83540; 83550; 83880; 84484; 85025; 85610; 85730; 93005; 93306; 93970; 94761; 96365; 96372; 96375; 96376; 97110; 97161; 97530; 99285; G0378; J1644; J1650; J2270; J2405; Q9967

== ENCOUNTER 2025-05-19 10:06 | Outpatient (OUT) | payer MEDICARE, SELFPAY ==
--- OUTSIDE RECORDS SUMMARY | 2024-11-10 12:45 | XMS_ITS ---
Author Organization [facility] Address [address] [place], [place] [address] Care Team Providers Care Liaison Inspection Laboratory Assistant Name Role Phone Marleen Monique Primary Care Provider [phone] Lisa Mercado [phone] REASON FOR VISIT HTN, HLD Social History Sex Assigned At : Social History Observation Description Sex Assigned At Female Encounters Encounter Location Date Provider Diagnosis Main [address] [place], [place] [id number] 11/10/2024 Lisa Mercado Plan Of Treatment Next Appt Details Provider Name:Marleen cabrera, 05/26/2025 03:00:00 PM, [address] [place], [place], [id number], Provider Name:Marleen cabrera, 06/01/2025 03:45:00 PM, [address] [place], [place], [id number], Progress Notes * Mary Lou DORSEYDOB:0 1950 (75 yo F)Acc No.[id number]:11/10/2024 Medical Note Patient: Rosa KHAN Mary Lou NUNEZ :?Lsia Mercado, MDDOB:1950???Age:74 Y???Sex: FemaleDate:11/10/2024Phone:[phone]:[address] [place], [place]Pcp:Marleen Monique Subjective: * Chief Complaints: * 1 . HTN, HLD. * Medical History: Objective: * Vitals: Assessment: Plan: * Treatment: * Billing Information: * Visit Code: * Procedure Codes: * Electronic signature of Lisa Mercado MD on 05/19/2025 at 10:10 AM ESTSign off status: Pending * Provider: Annelise Mercado MD Date: 0 11/10/2024 Generated for Printing/Faxing/eTransmitting on:?05/19/2025 10:10 AM EST
--- OUTSIDE RECORDS SUMMARY | 2025-03-04 10:00 | XMS_ITS ---
Author Organization [facility] vices Address [address] [place], [place] [id number] Care Team Providers Care Bank Vault Attendant Name Role Phone Marleen Monique Primary Care Provider Tess Charles [phone] REASON FOR VISIT 4m htn, hld Social History Sex Assigned At : Social History Observation Description Sex Assigned At Female Encounters Encounter Location Date Provider Diagnosis East [address] [place] [id number] 03/04 Tess Charles Plan Of Treatment Next Appt Details Provider Name:Marleen cabrera, 05/26/2025 03:00:00 PM, [address] [place] [address], [id number], Provider Name:Marleen cabrera, 06/01/2025 03:45:00 PM, [address] [place] [address], [phone], Progress Notes * Mary Lou DORSEYDOB:0 1950 (75 yo F)Acc No.[id number]:03/04/2025 Medical Note Patient: Rosa KHAN Mary Lou NUNEZ :Igor CharlesDOB:1950???Age:75 Y???Sex:Female Date:03/04/2025Phone:[phone]:[address] [place], [place] Pcp:Marleen Monique Subjective: * Chief Complaints: * 1 . 4m htn, hld. * Medical History: Objective: * Vitals: Assessment: Plan: * Treatment: * Billing Information: * Visit Code: * Procedure Codes: * Electronic signature of SONIA Luna on 05/19/2025 at 10:10 AM ESTSign off status: Pending * Provider: Lakisha Charles Date: 0 03/04/2025 Generated for Printing/Faxing/eTransmitting on:?05/19/2025 10:10 AM EST
--- OUTSIDE RECORDS SUMMARY | 2025-04-23 10:45 | XMS_ITS ---
Author Organization Replaced By [facility] vice Address [address] [place], [place] [id number] Care Team Providers Care Service Order Taker Name Role Phone Marleen Monique Primary Care Provider [phone] REASON FOR VISIT gerd, nausea Social History Sex Assigned At : Social History Observation Description Sex Assigned At Female Encounters Encounter Location Date Provider Diagnosis East [address] [place] [id number] 04/23/2025 Marleen Monique Plan Of Treatment Next Appt Details Provider Name:Marleen cabrera, 05/26/2025 03:00:00 PM, [address] [place] [address], [phone], Provider Name:Marleen cabrera, 06/01/2025 03:45:00 PM, [address] [place] [address], [phone], Progress Notes * Mary Lou DORSEYDOB:0 1950 (75 yo F)Acc No.[id number]:04/23/2025 Medical Note Patient: Rosa KHAN Mary Lou NUNEZ :?Marleen Monique APRN, BRIDGE REPAIRER-CDOB:1950???Age: 75 Y???Sex:FemaleDate:04/23/2025Phone:[phone]:[address] [place], [place] Subjective: * Chief Complaints: * 1 . Gerd, nausea. * Medical History: Objective: * Vitals: Assessment: Plan: * Treatment: * Billing Information: * Visit Code: * Procedure Codes: * Electronic signature of ROCIO Garcia on 05/19/2025 at 10:11 AM EST Sign off status: Pending * Provider: Catracho Monique APRN, FNP-C Date: 1 Generated for Printing/Faxing/eTransmitting on:?05/19/2025 10:11 AM EST
--- OUTSIDE RECORDS SUMMARY | 2025-04-30 04:30 | XMS_ITS ---
Author Organization [facility] vices Address [address] [place], [place] [id number] Care Team Providers Care Boatwright Name Role Phone Marleen Monique Primary Care Provider REASON FOR VISIT wellness Social History Sex Assigned At : Social History Observation Description Sex Assigned At Female Encounters Encounter Location Date Provider Diagnosis East [address] [place] [id number] 04/30/2025 Marleen Monique Plan Of Treatment Next Appt Details Provider Name:Marleen cabrera, 05/26/2025 03:00:00 PM, [address] [place] [address], [phone], Provider Name:Marleen cabrera, 06/01/2025 03:45:00 PM, [address] [place] [address], [id number], Progress Notes * Mary Lou DORSEYDOB:0 1950 (75 yo F)Acc No.[id number]:04/30/2025 Progress Notes Patient: Rosa KHAN Mary Lou NUNEZ :?Marleen Monique APRN, EXPLOITATION ANALYST-CDOB:1950???Age: 75 Y???Sex:FemaleDate:04/30/2025Phone:[phone]:[address] [place], [place] Subjective: * Chief Complaints: * 1 . Wellness. * Medical History: Objective: * Vitals: Assessment: Plan: * Treatment: Care Plan: * Problems: * Billing Information: * Visit Code: * Procedure Codes: * Electronic signature of ROCIO Garcia on 05/19/2025 at 10:10 AM EST Sign off status: Pending * Provider: Catracho Monique APRN, FNP-C Date: 1 Generated for Printing/Faxing/eTransmitting on:?05/19/2025 10:10 AM EST
--- OUTSIDE RECORDS SUMMARY | 2025-05-07 08:44 | XMS_ITS | Continuity of Care Document ---
Author Organization [facility] Address [address] [place] [address] Phone Care Team Providers Care Leave Specialist Name Role Phone NO FAMILY, PHYSICIAN Primary Care Provider Maxx Nair MD Attending Provider Care Teams Patient Care Team Team Status: Active Member Role/Relationship Status Dates PHYSICIAN NO FAMILY Primary Care Provider Active Patient Care Team Team Status: Inactive Member Role/Relationship Status Dates PHYSICIAN NO FAMILY Primary Care Provider Active Start: May 07, 2025 End: May 07Fede Chinchillaending ProviderActiveStart: May 07, 2025 End: May 07, 2025 Chief Complaint and Reason for Visit Chief Complaint Admit Date REF BY [facility], NAUSEA, DIARRHEA Oc tober 2024 1:06pm Reason for Visit Admit Date Diarrhea May 07, 2025 1 :06pm GERD (gastroesophageal reflux disease) O ctober 2024 1:06pm Nausea May 07, 2025 1 :06pm Allergies, Adverse Reactions, Alerts Allergen Type Severity Reaction Last Updated Verified Status No Known Drug Allergies Allergy Unknown Unknown Reaction May 07, 2025 1:20pm Yes Active Social History Smoking Status Unknown if ever smoked Observation Status Observation Response Date of Response Legal Sex Female (finding) Sex Assigned At BirthFemaleJuly 1949 Family History Relationship Condition Age at Onset Recorded Date/T yeni father Unknown motherDeceasedUnknown Problems Active Problems Problem Diagnosis/Recorded Date Onset Date Stat us Diarrhea May 07, 2025 1:24pm Unknown Ac tive GERD (gastroesophageal reflux disease) May 07 025 1:12pm Unknown Active Nausea May 07, 2025 1:13pm Unknown Ac tive Medications Medication Status Dose Units Route Directions Qty Days Refills S tart Date Stop Date End Date Reason(s) Instructions Adherence Atorvastatin 20 mg tablet Active 20 MG PO Daily May 07, 2025 12:00amUnknownAmlodipine 5 mg [id number] 2024 12:00amUnknownOmeprazole 40 mg capsule,delayed release(DR/EC)Qzohfm04 MGPODailyOctober 2024 12:00amUnknownLosartan 100 mg jaoakuZshfsc946NHZX DailyMay 07, 2025 12:00amUnknownRivaroxaban (Xarelto) 20 mg rjyknyWtanef82 MGPODailyOctober 2024 12:00amUnknown Vital Signs Vital Reading Result Reference Range Collection Date/Time Weight 83.46 kg May 07, 2025 1:19pm Advance Directives Advance Directive Response Recorded Date/ Time Advance Directives No March 1:14pm Insurance Providers Guarantor Mary Lou Wang da Address [address] [facility] [id number] Info.Home Phone: Coverage Status Update:2025 Payer Group Member ID Coverage Type Subscriber Relationship to Subscriber Effective Date Expiration Date [facility] Medicare Advantage PFFS [id number] Bravo De Acharya Id: [id number] [address] [facility] [address] Home Phone: Self Encounters Encounter Location(s) Arrival/Admit Date Discharge/Departure Date Discharge/Departure Disposition Provider(s) Departed Physician/ Provider Office Visit -[facility] May 07, 2025 1:06pm May 07, 2025 1:43pm Discharged to home care or self care (routine discharge) Maxx Arguello MD Recent Diagnosis Onset Date Admit Date Diarrhea Unknown May 07 1:06pm GERD (gastroesophageal reflux disease) Unknown May 07, 2025 1:06pm Nausea Unknown May 07 1:06pm Assessments Diagnosis Onset Date Resolution Status Admit Date Diarrhea acuteOctober 2024 1:06pmGERD (gastroesophageal reflux disease)acuteOct2024 1:06pmNauseaacuteOct[facility]:06pm Plan of Treatment Author Maxx Arguello [facility] 2024 1:34pmWe will schedule her for an EGD to evaluate her dyspeptic complaints. Continue omeprazole 40 mg daily for now. She will need to hold her Xarelto for 3 days. Regarding her blood clot I have advised her to follow-up with her primary care team for this. We will have her follow-up with our nurse practitioners after EGD to evaluate her dyspeptic complaints and we can further discuss colorectal cancer screening at that follow-up. Future Tests Future scheduled test information is unavailable Pending Tests Pending diagnostic test information is unavailable Future Visits Future appointment information is unavailable Future Procedures Future procedure information is unavailable Future Medications Future medication information is unavailable Patient Instructions Patient instructions are unavailable
--- OUTSIDE RECORDS SUMMARY | 2025-05-11 10:30 | XMS_ITS ---
Author Organization [facility] vices Address [address] [place], [place] [id number] Care Team Providers Care What Job Titles Mean Name Role Phone Marleen Monique Primary Care Provider Allergies No Known Allergies REASON FOR VISIT f/u to discuss medication Medications Medication SIG (Take, Route, Frequency, Duration) Notes Start Date End Date Status Omeprazole 40 MG 1 capsule 30 minutes before morning meal Orally Once a day; Duration: 90 days ActiveAcetaminophen Extra Strength 500 MG1 tablet as needed Orally every 6 hrs ActiveXarelto 20 MGTAKE 1 TABLET DAILY Oral Once a day; Duration: 30 daysActive amLODIPine Besylate 5 MG1 tablet Orally Once a day; Duration: 90 days04/03/2022 ActiveLosartan Potassium 100 MG1 tablet Orally Once a day; Duration: 90 days ActiveVoltaren 1 %apply to left shoulder Externally 4 times a day; Duration: 7 days5Active Social History Sex Assigned At : Social History Observation Description Sex Assigned At Female Problems Problem Type SNOMED Code ICD Code Onset Dates Problem Status W/U Status Risk Notes Problem History of pulmonary embolus (649328895) History of pulmonary embolism (Z86.711) Activeconfirmed Vital Signs Temperature 98.4 degrees Fahrenheit 05/11/20 25 Weight 179.8 lbs 05/11/2025 Height 64.00 in 05/11/2025 BMI 30.86 kg/m2 05/11/2025 Blood pressure systolic 151 mm Hg 05/11/20 25 Blood pressure diastolic 77 mm Hg 025 Heart Rate 82 /min 05/11/2025 Respiratory Rate 20 /min 05/11/2025 Oximetry 98 % 05/11/2025 Weight-kg 81.56 kg 05/11/2025 Height-cm 162.56 cm 05/11/2025 Ani Clark 05/11/2025 03:28:18 PM EST > Encounters Encounter Location Date Provider Diagnosis East [address] [place] [id number] 05/11/2025 Marleen Monique History of pulmona ry embolism Z86.711 Assessments Encounter Date Diagnosis (ICD Code) Assessment Notes Treatment Notes Treatment Clinical Notes Section Notes 05/11/2025 History of pulmonary embolism (I CD-10 - Z86.711) Continue 3rd month of xaltero Patient was told she needed a CT chest to evaluate if the PE resolved. CT ordered per patient request. Education given that xaltero can be continued for 6 months after a PE. Patient is not having any symptoms of a PE but would still like to have a CT because that is what the hospital told her she had to do. Will evaluate after CT if xaltero is needed Go back to ER for any chest pain or SOB Patient may need to resume a baby aspirin like was ordered originally before surgery Extensive education provided Plan Of Treatment Treatment Notes Assessment Notes History of pulmonary embolism Continue 3rd month of xaltero Patient was told she needed a CT chest to evaluate if the PE resolved. CT ordered per patient request. Education given that xaltero can be continued for 6 months after a PE. Patient is not having any symptoms of a PE but would still like to have a CT because that is what the hospital told her she had to do. Will evaluate after CT if xaltero is needed Go back to ER for any chest pain or SOB Patient may need to resume a baby aspirin like was ordered originally before surgery Extensive education provided Pending Test Test Name Order Date CT CHEST PULMONARY EMBOLISM W CONTRAST 1 07/11/2024 Next Appt Details Follow Up: keep next appoint ment, Reason: Provider Name:Marleen cabrera, 05/26/2025 03:00:00 PM, [address] [place] [address], [phone], Provider Name:Marleen cabrera, 06/01/2025 03:45:00 PM, [address] [place] [address], [place], [phone], Progress Notes * Mary Lou DORSEYDOB:0 1950 (75 yo F)Acc No.[id number]:05/11/2025 Medical Note Patient: Mary Lou BENZ :?Marleen MoniqueARIADNE, 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 Patient was admitted 3 months ago for a PE following a knee replacement. She was started on xalerto at that time.Patient is concerned because she was told that after 3 months if her PE resolved she can come off the xalerto. Patient states that the hospital told her to go back in [address] for [address] scan and blood work to make sure the PE was resolved but when she went to the hospital the other day to getthe testing they told her there was no testing ordered and she needed to go to her PCP. Patient wants to be taken off the medication because she was told that it was just for 3 months but 3 months isin a few days. Patient is insistent on a repeat CT scan. Patient denies any chest pain, cough, or SOB. * ROS: ???Positive and negative as described above in the HPI. * Medical History: * Surgical History: p lastic surgery under chin 08/2022Left knee surgery 2024 * Hospitalization/Major Diagno stic Procedure: s ee above [facility] for blood clot 01/2025 * Family History: F ather: . M other: . P aternal Grand Father: . P aternal Grand Mother: . M aternal Grand Father: . M aternal Grand Mother: .?Sister: alive. 1 sister(s) . . * Medications: T akingVoltaren 1 % Gel apply to left shoulder Externally 4 times a day Acetaminophen Extra Strength 500 MG Tablet 1 tablet as needed Orally every 6 hrs Omeprazole 40 MG Capsule Delayed Release 1 capsule 30 minutes before morning meal Orally Once a day Losartan Potassium 100 MG Tablet 1 tablet Orally Once a day amLODIPine Besylate 5 MG Tablet 1 tablet Orally Once a day Xarelto 20 MG Tablet TAKE 1 TABLET DAILY Oral Once a day , Notes: 3rd month of xareltoMedication List reviewed and reconciled with the patientTaking Voltaren 1 % Gel apply to left shoulder Externally 4 times a day Taking Acetaminophen Extra Strength 500 MG Tablet 1 tablet as needed Orally every 6 hrs Taking Omeprazole 40 MG Capsule Delayed Release 1 capsule 30 minutes before morning meal Orally Once a day Taking Losartan Potassium 100 MG Tablet 1 tablet Orally Once a day Taking amLODIPine Besylate 5 MG Tablet 1 tablet Orally Once a day Taking Xarelto 20 MG Tablet TAKE 1 TABLET DAILY Oral Once a day , Notes: 3rd month of xareltoMedication List reviewed and reconciled with the patient * Allergies: N .K.D.A.no[Allergies Verified] Objective: * Vitals: T emp: 98.4 F, Wt: 179.8 lbs, Ht: 64.00 in, BMI: 30.86 Index, BP: 151/77 mm Hg, HR: 82 /min, RR: 20 /min, Pain scale: 0 1-10, Oxygen sat %: 98 %, Wt-k.56 kg, Ht- cm: 162.56 cm, Body Surface Area: 1.92. Ani Clark 05/11/2025 03:28:18 PM EST >. * Examination: ???CQM Exceptions: ?Currently taking Aspirin:?Aspirin Use:?No?General Examination: ???Constitutional: Denies fevers, chills, or fatigue. Cardiovascular: Heart rhythm is regular, no murmurs noted. Denies chest pain, palpations, or shortness of breath. Respiratory: Lung sounds are clear in all ivey. Denies cough, wheezing, or shortness of breath. Gastrointestinal: Bowel sounds are active. Abdomen is soft, non-distended. Denies abdominal pain, nausea, vomiting, or changes in bowel habits. Genitourinary: Denies dysuria Musculoskeletal: Denies joint pain, muscle aches, or weakness. Neurological: Denies headache, dizziness, numbness, or tingling. Psychiatric: No changes in mood or sleep patterns. Assessment: * Assessment: 1.?History of pulmonary embolism - Z86.711 (Primary)??? Plan: * Treatment: ?Imaging: CT CHEST PULMONARY EMBOLISM W CONTRAST* Notes: Continue 3rd month of xaltero Patient was told she needed a CT chest to evaluate if the PE resolved. CT ordered per patient request. Education given that xaltero can be continued for 6 months after a PE. Patient is not having any symptoms of a PE but would still like to have a CT because that is what the hospital told her she had to do. Will evaluate after CT if xaltero is needed Go back to ER for any chest pain or SOB Patient may need to resume a baby aspirin like was ordered originally before surgery Extensive education provided?? * Procedure Codes: 3 077F HTN SYST BP >= 1075899I HTN DIAST BP < 80 * Follow Up: k [facility] next appointment * Billing Information: * Visit Code: 76755 Office Visit Est 20-29 minutes. * Procedure Codes: 3077F HTN SYST BP >= 140. 3078F HTN DIAST BP < 80. * Sign off status: Completed true * Provider: Catracho Monique APRN, FNP-C Date: 07/11/2024 Generated for Printing/Faxing/eTransmitting on:?05/19/2025 10:10 AM EST History and Physical Notes * HPI (History of Present Illness) CategorySub-CategoryDetailNotesCategory NotesInterim HistoryPatient is here because she has concerns of being prescribed medication for 3 months. Patient was admitted 3 months ago for a PE following a knee replacement. She was started on xalerto at that time.Patient is concerned because she was told that after 3 months if her PE resolved she can come off the xalerto. Patient states that the hospital told her to go back in [address] scan and blood work to make sure the PE was resolved but when she went to the hospital the other day to getthe testing they told her there was no testing ordered and she needed to go to her PCP. Patient wants to be taken off the medication because she was told that it was just for 3 months but 3 months isin a few days. Patient is insistent on a repeat CT scan. Patient denies any chest pain, cough, or SOB. Examination CategorySub-CategoryDetailNotesCategory NotesGeneral Examination Constitutional: Denies fevers, chills, or fatigue. Cardiovascular: Heart rhythm is regular, no murmurs noted. Denies chest pain, palpations, or shortness of breath. Respiratory: Lung sounds are clear in all ivey. Denies cough, wheezing, or shortness of breath. Gastrointestinal: Bowel sounds are active. Abdomen is soft, non-distended. Denies abdominal pain, nausea, vomiting, or changes in bowel habits. Genitourinary: Denies dysuria Musculoskeletal: Denies joint pain, muscle aches, or weakness. Neurological: Denies headache, dizziness, numbness, or tingling. Psychiatric: No changes in mood or sleep patterns. CQM ExceptionsCurrently taking Aspirin:Aspirin Use:: No
--- OUTSIDE RECORDS SUMMARY | 2025-05-19 10:11 | XMS_ITS | Clinical Summary ---
Author Organization [facility] Address [address] [place] [address] Care Team Providers Care Rn Women Services Name Role Phone Lin Vega MD Unavailable Rosmery Hernandez DO Primary Care Provider [phone] Allergies No known active allergies Medications MedicationSigDispense QuantityRefillsLast FilledStart DateEnd DateStatus amLODIPine (Norvasc) 5 MG tablet Take 5 mg by mouth DailyActive atorvastatin (Lipitor) 20 MG tablet Take 20 mg by mouth Daily08/07/2023ctive losartan (Cozaar) 100 MG tablet Take 100 mg by mouth Daily08/07/2023ctive sulindac (Clinoril) 200 MG tablet Take 200 mg by mouth in the morning and 200 mg in the evening.Active Misc. Devices misc Indications:Pre-op evaluationDispense: Front Wheeled walker use 90 days. Ht: 5'1 Weight: 186LB 1 Units 5Active Active Problems ProblemNoted DateDiagnosed DatePrimary osteoarthritis of left knee01/11/2025 Acute postoperative pain of left knee01/11/2025Status post left knee replacement 01/11/2025 Encounters DateTypeDepartmentCare YbroGfvhdppaheo01/30/2025Telephone [facility] [address] [facility] [place] [address] Jr. Andrea Canada DO Atoggeyjyt40/22/2025 11:00 AM EDTAncillary Procedure [facility] [address] [place] [address] 03/30/2025 10:45 AM EDTOffice Visit [place] [address] [place] [address] Hunter Winters, HAND CLOTH EXAMINER Primary osteoarthritis of left shoulder (Primary Dx); Acute pain of left shoulder; Status post total left knee wzbwzoeoyhy92/22/2025[facility] flowsheet [facility] [address] [place] [address] Hunter Winters, HAND CLOTH EXAMINER 03/30/20257893Qgfdfe53/09/2025 12:00 PM EDTTreatment [place] [address] [place] [address] Medhat Christy, SENIOR MORTGAGE UNDERWRITER Primary osteoarthritis of left knee (Primary Dx); Acute postoperative pain of left knee; Status post left knee igssndwflmp96/09/2025[facility] flowsheet [facility] [address] [address] Christy Meléndez, SENIOR MORTGAGE UNDERWRITER 03/17/20251800Edhqoj12/04/2025 12:00 PM EDTTreatment [facility] [address] [place] [place] [address] Jerry Galvin, PT Primary osteoarthritis of left knee (Primary Dx); Acute postoperative pain of left knee; Status post left knee lmxextmjwuf76/04/2025[facility] flowsheet [facility] [address] [address] Jerry Galvin, PT 03/12/20251518Orbkpw65/02/2025 12:00 PM EDTTreatment [place] [address] [place] [address] Jerry Galvin, PT Primary osteoarthritis of left knee (Primary Dx); Acute postoperative pain of left knee; Status post left knee ekxqevhzqto77/02/2025amb flowsheet [place] [address] [place] [address] Jerry Galvin, PT 03/10/20256488Pzkwmm66/28/2025 11:30 AM EDTTreatment [facility] [address] [place] [address] Leisa Shieldstchen, SENIOR MORTGAGE UNDERWRITER Primary osteoarthritis of left knee (Primary Dx); Acute postoperative pain of left knee; Status post left knee tohetgbiphf86/28/2025amboo flowsheet [facility] [address] [place] [address] Cornelius Rafia, SENIOR MORTGAGE UNDERWRITER 03/05/20253766Fdkonb66/26/2025 11:30 AM EDTTreatment [place] [address] [place] [address] Christy Meléndez, SENIOR MORTGAGE UNDERWRITER Primary osteoarthritis of left knee (Primary Dx); Acute postoperative pain of left knee; Status post left knee mrrpjfhacso92/26/2025amboo flowsheet [facility] [address] [place] [address] Christy Meléndez, SENIOR MORTGAGE UNDERWRITER 03/03/20255588Ozarlg51/21/2025 11:30 AM EDTTreatment [facility] [address] [place] [address] Jerry Galvin, PT Primary osteoarthritis of left knee (Primary Dx); Acute postoperative pain of left knee; Status post left knee bmusotxlpfw76/21/2025amboo flowsheet [facility] [address] [place] [address] Jerry Galvin, PT 02/26/20251688Gegann45/19/2025 12:00 PM EDTTreatment [place] [address] [place] [address] Christy Meléndez, SENIOR MORTGAGE UNDERWRITER Primary osteoarthritis of left knee (Primary Dx); Acute postoperative pain of left knee; Status post total knee replacement, left02/24/2025amboo flowsheet [address] [place] [address] Christy Meléndez, SENIOR MORTGAGE UNDERWRITER 02/24/20256091Crrhhi62/14/2025 10:30 AM EDTTreatment [facility] [address] [place] [address] Christy Meléndez, SENIOR MORTGAGE UNDERWRITER Primary osteoarthritis of left knee (Primary Dx); Acute postoperative pain of left knee; Status post total knee replacement, left02/19/2025Telephone [facility] [address] [facility] [address] Hunter Winters, HAND CLOTH EXAMINER 02/19/2025amboo flowsheet [facility] [address] [place] [address] Christy Meléndez, SENIOR MORTGAGE UNDERWRITER 02/19/20256992Kkzpdz39/11/2025 11:30 AM EDTOffice Visit [place] [address] [place] [address] Hunter Winters, HAND CLOTH EXAMINER Status post total left knee replacement; Acute pain of left knee02/16/2025 11:25 AM EDTAncillary Procedure [facility] [address] [place] [address] 02/16/2025 10:30 AM EDTTreatment [place] [address] [place] [address] Jerry Galvin, PT Primary osteoarthritis of left knee (Primary Dx); Acute postoperative pain of left knee; Status post total knee replacement, left02/16/2025amboo flowsheet [facility] [address] [facility] [address] Jerry Galvin, PT 02/16/2025Travelfrom Last 3 Months Family History RelationNameStatusCommentsFatherDeceasedMotherDeceased Social History Tobacco UseTypesPacks/DayYears UsedDateSmoking Tobacco: NeverSmokeless Tobacco: Never Tobacco Cessation:Counseling Given: Not Answered Alcohol UseStandard Drinks/WeekCommentsNot Currently0 (1 standard drink = 0.6 oz pure alcohol)CommentsUnknownSex and Gender InformationValueDate Recorded Sex Assigned at BirthNot on fileLegal VzqTkvuaz66/15/2023 8:25 PM EDTGender IdentityNot on fileSexual OrientationNot on file Last Filed Vital Signs Vital SignReadingTime TakenCommentsBlood Jikdvyjq714/7211 12:00 PM EST Pulse--Temperature--Respiratory Rate--Oxygen Saturation--Inhaled Oxygen Concentration--Ilfhqr15.4 kg (186 lb)12/08/2024 10:30 AM VJWFzkzfi589.9 cm (5' 1 )12/08/2024 10:30 AM EDTBody Mass Index35.14012/08/2024 10:30 AM EDT Plan of Treatment DateTypeDepartmentCare Team (Latest Contact Info)Woxbzbjytus33/15/2025 3:30 PM ESTOffice Visit [facility] [address] [place] [address] Hunter Winters, HAND CLOTH EXAMINER [address] [place] [address] Health MaintenanceDue DateLast DoneCommentsPneumococcal Vaccine: 65+ Years (1 of 1 - PCV)02/04/1998COVID-19 Vaccine ( season)/03/2021, 12/16/2020Influenza Vaccine (#1) Procedures Procedure NamePriorityDate/TimeAssociated DiagnosisCommentsPR ARTHROCENTESIS ASPIR&/INJ MAJOR JT/BURSA W/O OKWwlmteq67/22/2025 12:47 PM EDT Primary osteoarthritis of left shoulder XR SHOULDER 2+ VIEWS VKMPHdglhtv89/22/2025 10:56 AM EDT Acute pain of left shoulder XR KNEE 1-2 VIEWS XSJQLnpftbt31/11/2025 11:22 AM EDT Acute pain of left knee from Last 3 Months Results * MS ARTHROCENTESIS ASPIR&/INJ MAJOR JT/BURSA W/O US (03/30/2025 12:47 PM EDT) Narrative Hunter Winters NP - 03/30/2025 12:47 PM EDT Hunter Winters NP 03/30/2025 12:50 PM L Inj/Asp: L subacromial bursa on 03/30/2025 12:47 PM Indications: pain Details: 20 G needle, posterior approach Medications: 40 mg methylPREDNISolone acetate 40 MG/ML Outcome: tolerated well, no immediate complications Site cleaned with isopropyl alcohol Procedure, treatment alternatives, risks and benefits explained, specific risks discussed. Consent was given by the patient. Authorizing ProviderResult TypeResult StatusHunter Winters NPIN CLINIC/BEDSIDE ORDERABLESFinal Result * XR shoulder 2+ views left (03/30/2025 10:56 AM EDT)Anatomical RegionLaterality ModalityUpper Extremities, ShoulderLeftRadiographic ImagingSpecimen (Source) Anatomical Location / LateralityCollection Method / VolumeCollection Time Received Time Narrative 03/30/2025 12:50 PM EDT Imaging Result: 03/30/2025: Grashey, AP and scapular Y of the left shoulder showed severe degenerative joint disease at the glenohumeral joint with no intervening joint space noted. ??Flattening of the articular surfaces was noted as well as subchondral sclerosis and marginal osteophytic formation to the glenohumeral joint. ??Humeral head appeared to be well centered in the glenoid fossa. ??Acromioclavicular joint showed degenerative changes as well globally. ??There was no acute bony process including but not limited to fracture and/or dislocation. ??Impression: Severe degenerative joint disease, left glenohumeral joint. Authorizing ProviderResult TypeResult StatusHunter Winters NPIMG XR PROCEDURES Final Result * XR knee 1 or 2 views left (02/16/2025 11:22 AM EDT)Anatomical RegionLaterality ModalityLower Extremities, KneeLeftRadiographic ImagingSpecimen (Source) Anatomical Location / LateralityCollection Method / VolumeCollection Time Received Time Narrative 02/16/2025 1:42 PM EDT Imaging Result: 02/16/2025: Standing AP and LAT of left knee showed surgical position and alignment of prosthetic components without evidence of loosening or wear to the femoral, tibial, or patellar components. ??The alignment appeared to be anatomic. ??There was no evidence of accelerated or asymmetric wear to the patellar button or tibial tray. ??There was no evidence of fracture and/or dislocation. Impression: Stable LT total knee replacement. Hunter Winters COLLEGE ADMINISTRATOR-COUNTY BAILIFF Authorizing ProviderResult TypeResult StatusGrant Mikhail Winters NPIMG XR PROCEDURES Final Result from Last 3 Months Insurance Advance Directives TypeDate RecordedPatient RepresentativeExplanationAdvance Directives and Living Will08/15/2023 2:10 [id number] Supplemental Log ([employer])Advance Directives and Living Will08/15/2023 2:09 PY2019-23-21 Communication Assessment Form ([employer]) Care Teams Team MemberRelationshipSpecialtyStart DateEnd Date Rosmery Hernandez DO [address] [place] [address] [facility] - [facility] Lin Vega MD [address] [place], [place] [address] Referring PhysicianFamily Medicine08/14/23
--- OUTSIDE RECORDS SUMMARY | 2025-05-19 10:11 | XMS_ITS | Encounter Summary ---
Author Organization [facility] Address [address] [place] [address] Care Team Providers Care Abe Teacher Name Role Phone Lin Vega MD Unavailable Rosmery Hernandez DO Primary Care Provider [phone] Reason for Visit * ReasonOnset DisxUviklbecVfxmmvrinr77/30/2025 Encounter Details DateTypeDepartmentCare Team (Latest Contact Info)Jgjmmlpgyny55/30/2025Telephone [facility] [address] [facility] [address] [place] [address] Jr. Andrea Canada, DO [address] [facility] [address] [place] [address] Medication Social History Tobacco UseTypesPacks/DayYears UsedDateSmoking Tobacco: NeverSmokeless Tobacco: NeverAlcohol UseStandard Drinks/WeekCommentsNot Currently0 (1 standard drink = 0.6 oz pure alcohol)CommentsUnknownSex and Gender InformationValueDate RecordedSex Assigned at BirthNot on fileLegal DhoQnzwml74/15/2023 8:25 PM EDT Gender IdentityNot on fileSexual OrientationNot on filedocumented as of this encounter Miscellaneous Notes * Telephone Encounter - Karen Anna - 05/07/2025 4:11 PM EDT Patient granddaughter Simin called. She is asking if patient still needs to take Xarelto. She wasprescribed it 02/06/25 at [facility] by Marleen Monique. I did give here the phone number for Marleen Monique, should they give her office a call? Please advise [phone] documented in this encounter Plan of Treatment DateTypeDepartmentCare Team (Latest Contact Info)Qvfvtkfrtcv56/15/2025 3:30 PM ESTOffice Visit [facility] [address] [place] [address] Hunter Winters, HEALTH CARE ASSISTANT [address] [place] [address] documented as of this encounter Visit Diagnoses Not on filedocumented in this encounter Care Teams Team MemberRelationshipSpecialtyStart DateEnd Date Rosmery Hernandez DO [address] [facility], [place] [phone] PCP - GeneralFamily Medicine08/14/23 Lin Vega MD [address] [place], [place] [address] Referring PhysicianFamily Medicine08/14/23documented as of this encounter
--- OUTSIDE RECORDS SUMMARY | 2025-05-19 10:11 | XMS_ITS | Patient Health Record ---
Author Organization [facility] vices Address [address] [place], [place] [id number] Care Team Providers Care Foley Artist Name Role Phone Marleen Monique Primary Care Provider Tess Charles Unavailable [phone] Lily Reynoso Unavailable Lisa Mercado Unavailable [phone] Allergies No Known Allergies Reason For Referral Reason treat and eval GERD Diagnosis 1 GERD (gastroesophage al reflux disease) (K21.9) Referral Organization Mirela Bhatia Referring Provider First Name Marleen Referring Provider Last Name Kayden Referring Provider [facility] len Referred Provider Sylwia Gastroente rology Referred Provider Specialty Gastroentero logy General Notes Elijah Oliva 03/09 10:47:49 AM >Sent [facility] fax to see if appt scheduled. Hazel gasca Jeff 04/03/2025 10:46:27 AM >Appt scheduled for 05/07/25 1:15pm per fax response 03/27/25. Debi gasca Emily 05/14/2025 10:49:52 AM >see scanned report Referral Priority Routine Referral Appointment Date 05/07/2025 Reason eval and treat left shoulder pain Diagnosis 1 Pain, joint, shoulde r, left (M25.512) Referral Organization Mirela Bhatia Referring Provider First Name Marleen Referring Provider Last Name Kayden Referring Provider [facility] len Referred Provider [facility] Referred Provider Specialty Orthopedics General Notes Elijah Oliva 03/10 09:54:54 AM >See attached consult notes from 03/30/25 appt. gasca Referral Priority Routine Referral Appointment Date 03/30/2025 Medications Medication SIG (Take, Route, Frequency, Duration) Notes Start Date End Date Status Omeprazole 40 MG 1 capsule 30 minutes before morning meal Orally Once a day; Duration: 90 days ActiveAcetaminophen Extra Strength 500 MG1 tablet as needed Orally every 6 hrs ActiveVoltaren 1 %apply to left shoulder Externally 4 times a day; Duration: 7 days5ActiveXarelto 20 MGTAKE 1 TABLET DAILY Oral Once a day; Duration: 30 daysActiveamLODIPine Besylate 5 MG1 tablet Orally Once a day; Duration: 90 days04/03/2022ctiveLosartan Potassium 100 MG1 tablet Orally Once a day; Duration: 90 daysActive Immunizations Vaccine Route Administration Date Status Comme nts COVID-19 ([employer])-Private Unknown 12/16/2020 Administer ed COVID-19 ([employer])-AsqtrweXqcqozl72/09/2021dministeredInfluenza (split), 3 yrs and aboveIM Igfanwaiueqee77/11/2012dministeredStatus:Complete ,Reason:Given or N/A ,Given at 5:10pm Social History Tobacco Use: Social History Observation Description Date Details (start date - stop date) Never Smoker NA - NA Sex Assigned At : Social History Observation Description Sex Assigned At Female Household Question Answer Notes Number of adults in household: 5 Number of children in household:1Tobacco Use/Smoking Question Answer Notes Tobacco use: nonsmoker [...] No patient entered data CAGE-AID Score 0 InterpretationNegativePRAPARE Question Answer Notes Date Completed/Updated: 10/29/2024 bob [...] 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 Check all that applyI do not have problems meeting my needsHas lack of transportation kept you from medical appointments, meetings, work or from getting things needed for daily living?No How often do you see or talk to people that you care about and feel close to? (For example: talkingto friends on the phone, visiting friends or family, going to lutheran or club meetings)3 to 5 times a weekpatient entered dataHow stressed are you? Stress is when someone feels tense, nervous, anxious, or can't sleep at nightbecause their mind is troubledNot at allpatient entered dataIn the past year have you spent more than 2 nights in a row in a alf, long term, correction center, orjuvenile correctional facility?Nopatient entered dataAre you a refugee?Nopatient entered dataWhat country are you from?I choose not to answer this questionDo you feel physically and emotionally safe where you currently live?Yespatient entered dataIn the past year, have you been afraid of your partner or ex-partner?Nopatient entered dataPRAPARE Score:6Tobacco Control (Standard) Question Answer Notes Tobacco use: Nonsmoker Problems Problem Type SNOMED Code ICD Code Onset Dates Problem Status W/U Status Risk Notes Problem Obesity (570743751) Obesity, unspecified (E66.9) ActiveconfirmedProblemDrug-induced constipation (38556825)Drug induced constipation (K59.03)ActiveconfirmedProblemBMI 30+ - obesity (473271146)BMI 32.0-32.9,adult (Z68.32)ActiveconfirmedProblemOsteoarthritis of knee (227664912) Primary osteoarthritis of left knee (M17.12)ActiveconfirmedProblemOsteoarthritis of knee (697104837)Primary osteoarthritis of right knee (M17.11)Activeconfirmed ProblemHistory of pulmonary embolus (201537228)History of pulmonary embolism (Z86.711)ActiveconfirmedProblemHyperlipidaemia (64135889)Hyperlipidemia, unspecified hyperlipidemia type (E78.5)ActiveconfirmedProblemPrimary hypertension (40113951)Primary hypertension (I10)ActiveconfirmedProblem Gastroesophageal reflux disease (373126073)GERD (gastroesophageal reflux disease) (K21.9)ActiveconfirmedComment:symptoms stable. continue PPI as needed., ProblemConstipation (42477725)Constipation (K59.00)Inactiveconfirmed Comment:identified on CT imaging w/o other acute finding and pt report of no BM for 4days will trial miralax, patient informed, ProblemCervical lymphadenitis (2504463)Cervical lymphadenitis (I88.9)Inactive confirmedComment:As above; follow up in 2 weeks.,ProblemOnychomycosis caused by dermatophyte (039155983)Onychomycosis of toenail (B35.1)Inactiveconfirmed Comment:She could only tolerate 2 months of the terbinafine (upset her stomach); will check LFTs since her stomach still bothers her.,ProblemSeasonal allergy (129976657)Seasonal allergies (J30.2)Problem resolvedconfirmedProblemBenign paroxysmal positional vertigo (950780758)Benign positional vertigo (H81.10) Problem resolvedconfirmed Comment:-BPPV has improved significantly -Not taking antivert anymore -Discussed exercises and stretches that may reduce dizzness and BPPV symptoms -Explains PT could be utilized if dizziness persists or worsens; PVU but explains she woiuld like to wait -F/u PRN, PVU, ProblemChronic hoarseness (7477737990711)Hoarseness, chronic (R49.0)Problem resolvedconfirmedProblemChest pain (94199274)Chest pain, exertional (R07.9) Problem resolvedconfirmed Comment:persistent issue w/ activity climbing the stairs stress test negative but not complete w/ activity level will refer to cardiology for further consult, Vital Signs Heart Rate 82 /min 05/11/2025 Eduardo Alexandria la 05/11/2025 03:28:18 PM EST > Temperature 98.4 degrees Fahrenheit 05/11/2025 Ani Montoya 05/11/2025 03:28:18 PM EST > Respiratory Rate 20 /min 05/11/2025 Broyanyious Ani 05/11/2025 03:28:18 PM EST > Height-cm 162.56 cm 05/11/2025 Broyanyious [place] 05/11/2025 03:28:18 PM EST > Oximetry 98 % 05/11/2025 Marckious [place] la 05/11/2025 03:28:18 PM EST > Blood pressure diastolic 77 mm Hg 05/11/2025 Tomer shinilam Ani 05/11/2025 03:28:18 PM EST > Weight-kg 81.56 kg 05/11/2025 Eduardo [place] la 05/11/2025 03:28:18 PM EST > Height 64.00 in 05/11/2025 Eduardo [place] la 05/11/2025 03:28:18 PM EST > Blood pressure systolic 151 mm Hg 05/11/2025 Galen Montoyaa 05/11/2025 03:28:18 PM EST > Weight 179.8 lbs 05/11/2025 Eduardo [place] la 05/11/2025 03:28:18 PM EST > BMI 30.86 kg/m2 05/11/2025 Eduardo [place] la 05/11/2025 03:28:18 PM EST > Encounters Encounter Location Date Provider Diagnosis Main [address] [place], [place] [id number] 06/03/2024 Lisa Rogelio Primary hypertensi on I10 ; Hyperlipidemia, unspecified hyperlipidemia type E78.5 ; GERD (gastroesophageal reflux disease) K21.9 and Medication refill Z76.[address] [place] [id number] 10/29/2024 Tess Araceli Primary hypertensi on I10 ; Hyperlipidemia, unspecified hyperlipidemia type E78.5 ; Medication refill Z76.0 ; Screening for breast cancer Z12.39 ; Colon cancer screening declined Z53.20 ; Dietary counseling Z71.3 ; Exercise counseling Z71.82 and BMI 32.0-32.9,adult Z68.[address] [id number] 12/22/2024 Tess Charles Knee pain, chronic , left M25.562 and Pre-op evaluation Z01.[address] [id number] 02/26/2025 [facility] discharge follow-up Z09 ; GERD (gastroesophageal reflux disease) K21.9 ; Drug induced constipation K59.03 and Adverse effect of other opioids, initial encounter T40.2X5A [address] [id number] 03/12/2025 Marleenjosh Monique GERD (gastroesopha geal reflux disease) K21.9 ; Nausea R11.0 and Acute diarrhea R19.[address] [id number] 03/24/2025 Marleen Monique Pain, joint, shoul jace, left M25.512 and GERD (gastroesophageal reflux disease) K21.[address] [id number] 05/11/2025 [facility] History of pulmona ry embolism Z86.711 [address] [place], [place] [id number] 10/08/2024 Lisa Rogelio Primary hypertensi on I10 Main [address] [place], [place] [id number] 10/28/2024 Lisa Rogelio GERD (gastroesopha geal reflux disease) K21.9 ; Medication refill Z76.0 and Hyperlipidemia, unspecified hyperlipidemia type E78.5 [address] [place], [place] [id number] 10/29/2024 Lisa Rogelio [place] [place] [id number]/Tess Charles Pre-op evaluation Z01.[address] [place], [place] [id number]/Tess CharlesOhNizkSyfa[address] [place], [place] [id number]/Faith McNealPrimary hypertension [address] [place], [place] [id number]/26/2025[facility] McNealPrimary hypertension N[address]Msyl[address] [place], [place] [id number] 04/16/2025bigail HoffmanPrimary hypertension [address] [place], [place] [id number]/22/2025Abigail Monique Assessments Encounter Date Diagnosis (ICD Code) Assessment Notes Treatment Notes Treatment Clinical Notes Section Notes 06/03/2024 Hyperlipidemia, unspecified hype rlipidemia type (ICD-10 - E78.5) need refill as leaving for [place] for 3 months. will get blood work done 06/03/2024rimary hypertension (ICD-10 - I10) BP noted to be elevated. She is leaving for [place] for 3 months thats why I will not do any changesin medications Advised to check BP at home and keep a record and see a doctor in [place]. Discussed having diet low in salt Discussed reassuring vs non reassuring symptoms and when to go to ER 10/08/2024Primary hypertension (ICD-10 - I10)10/28/2024GERD (gastroesophageal reflux disease) (ICD-10 - K21.9)10/29/2024Primary hypertension (ICD-10 - I10) 12/22/2024Pre-op evaluation (ICD-10 - Z01.818)12/22/2024Knee pain, chronic, left (ICD-10 - M25.562) patient cleared for surgery form completed and faxed 12/22/2024Pre-op evaluation (ICD-10 - Z01.818)12/30/2024Primary hypertension (ICD-10 - I10)01/01/2025Primary hypertension (ICD-10 - I10)10/29/2024 Hyperlipidemia, unspecified hyperlipidemia type (ICD-10 - E78.5)02/26/2025GERD (gastroesophageal reflux disease) (ICD-10 - K21.9) Extensive discussion was had with the patient regarding the ongoing treatment for their GERD related symptoms. The patient was agreeable to either beginning/continuing the similar therapy as they have been on. It was encouraged to abstain from certain food triggers (red sauces, citric juices, spicy/hot foods, greasy/fast/fried foods) to minimize their symptoms. It was explained that in the event that the symptoms are no longer being managed with the RX PPI that a consultation with Gastroenterology may be indicated for a potential EGD test but will be determined as treatment progresses. Continue similar therapy and reach out to pharmacy as needed for refills of medications. 02/26/2025Hospital discharge follow-up (ICD-10 - Z09) Doing well. Continue blood thinner Report any black tarry stools or coffee ground emisis Go to ER for any chest pain or SOB 03/12/2025Nausea (ICD-10 - R11.0) Resolved Eat bland diet Plenty of water Declines any nausea medication Go to ER for any CP, SOB, or vomiting blood 03/12/2025GERD (gastroesophageal reflux disease) (ICD-10 - K21.9) Pt was advised lifestyle modifications to help with GERD symptoms. Pt was advised to take smaller meals (less spicy and less fatty foods as much as possible). Pt was advised to cut down on alcohol and smoking. Pt was told to eat dinner at least 2 hours prior to going to bed and avoid recumbency right after eating any meal. Pt was told to elevate the head end of bed and to use pillows at night to prevent regurgitation. PVU. Continue with PPI. Referral to GI for uncontrolled symptoms. Patient does not want to go but education provided and patient is agreeable. 03/24/2025GERD (gastroesophageal reflux disease) (ICD-10 - K21.9) Patient educated on PPI dose. 80mg is not recommended. A referral was made at her last appointment for GI. Keep GI appointment May 07. Go to ER for coffee ground emisis and black tarry stools. 03/24/2025Pain, joint, shoulder, left (ICD-10 - M25.512) Patient may increase tylenol to 1000mg every 6 hours as needed Apply ice and heat Rest arm Patient has been on oxycodone-acetaminophen since 01/05 and getting it refilled every 7 days for knee pain. Patient was not given any more refills by ortho due to it no longer being necessary. Patient may try voltarn gel but no opioids Referral to Ortho No NSAIDs due to being on eliquis 04/16/2025Primary hypertension (ICD-10 - I10)05/11/2025History of pulmonary embolism (ICD-10 - Z86.711) Continue 3rd month of xaltero [...] ordered originally before surgery Extensive education provided 03/12/2025ute diarrhea (ICD-10 - R19.7) Resolved Plenty of water [place] food Go to ER for any bloody stools 10/29/2024Medication refill (ICD-10 - Z76.0)02/26/2025Drug induced constipation (ICD-10 - K59.03) MiraLax as prescribed. Sit on toilet about 30 mins after meals for at least 10-15 mins without any electronic devices or distractions, even if he/she has no bowel movement. Increase fruits and vegetables (preferably with skin) in diet - discussed methods to incorporate into diet. May sprinkle bran flakes in foods like applesauce, cereal etc. Encourage adequate water intake. Parent verbalized understanding. 10/28/2024Medication refill (ICD-10 - Z76.0)06/03/2024GERD (gastroesophageal reflux disease) (ICD-10 - K21.9)06/03/2024Medication refill (ICD-10 - Z76.0) 10/28/2024Hyperlipidemia, unspecified hyperlipidemia type (ICD-10 - E78.5) 10/29/2024Screening for breast cancer (ICD-10 - Z12.39)02/26/2025dverse effect of other opioids, initial encounter (ICD-10 - T40.2X5A)10/29/2024olon cancer screening declined (ICD-10 - Z53.20)10/29/2024Dietary counseling (ICD-10 - Z71.3)10/29/2024Exercise counseling (ICD-10 - Z71.82)5BMI 32.0- 32.9,adult (ICD-10 - Z68.32) Plan Of Treatment Pending Test Test Name Order Date CT CHEST PULMONARY EMBOLISM W CONTRAST 1 07/11/2024 Next Appt Details Provider Name:Marleen cabrera, 05/26/2025 03:00:00 PM, [address], [place], [id number], Provider Name:Marleen cabrera, 06/01/2025 03:45:00 PM, [address], [place], [id number], Insurance Providers Payer Name Payer Address Payer Phone Subscriber Number Group Number Insured Name Patient Relationship to Insured Coverage Start Date Coverage End Date [facility] Medicare Advantage [facility] [address] [address] [place] [address] [id number] Mary Lou Pineda Self - patient is the insured Medical (General) History Medical History History ICD Code Mixed hyperlipidemia ArthritisGERD (gastroesophageal reflux disease)HypertensionObesityOsteoarthritis of shoulderOsteoarthritis of kneeBenign positional vertigo (resolved 05/18/2023) undefinedSeasonal allergies (resolved 02/22/2024)undefinedSurgical History Surgery Date(Month/Year) plastic surgery under chin 08/2022 Left knee surgery 2024 Hospitalization History Reason Date(Month/Year) [facility] for blood clot 01/2025 see above 08/2022
--- OUTSIDE RECORDS SUMMARY | 2025-05-19 10:11 | XMS_ITS | Clinical Summary ---
Author Organization [facility] tem Address [facility] [id number] [address] [place] [address] Care Team Providers Care Instrument Repairer Helper Name Role Phone EvertonRosmery beck Primary Care Provider [phone] Allergies No known active allergies Medications MedicationSigDispense QuantityRefillsLast FilledStart DateEnd DateStatus losartan (COZAAR) 50 mg tablet Take 100 mg by mouth daily. Active atorvastatin (LIPITOR) 10 mg tablet Take 10 mg by mouth nightly.Active amLODIPine (NORVASC) 5 mg tablet Take 5 mg by mouth daily.Active omeprazole (PriLOSEC) 40 mg capsule Take 40 mg by mouth daily.Active sulindac (CLINORIL) 200 mg tablet Take 200 mg by mouth 2 (two) times a day.Active oxymetazoline (AFRIN) 0.05 % nasal spray Administer 2 sprays into each nostril 2 (two) times a day. 30 mL 1Active phenol-phenolate sodium (CHLORASEPTIC) aerosol,spray 2 sprays by mucous membrane route every 2 (two) hours as needed (sore throat). 177 mL 1Active Active Problems ProblemNoted DateDiagnosed DateObesity (BMI 30.0-34.9)11/25/2020ssential /20/2021 Immunizations ImmunizationAdministration DatesNext SrdLsvl85/06/2024 Family History Medical HistoryRelationNameCommentsHeart diseaseMotherRelationNameStatusComments FatherDeceasedMotherDeceased Social History Tobacco UseTypesPacks/DayYears UsedDateSmoking Tobacco: NeverSmokeless Tobacco: Never Tobacco Cessation:Counseling Given: No Alcohol UseStandard Drinks/WeekCommentsNever0 (1 standard drink = 0.6 oz pure alcohol)ChildcareAnswerDate AtvbvgtnWnnrtfdxqUnrgpng67/12/2019EmploymentAnswer Date VfuphaqoPuxcgcxmqgAmdmrlw19/12/2019Hunger ScreeningAnswerDate Recorded Within the past 12 months we worried whether our food would run out before we got money to buy more.Never True04/22/2024Within the past 12 months the food we bought just didn't last and we didn't have money to get more.Never True 4Purpose - LifeAnswerDate RecordedPurpose and direction in lifeUnknown 1CommentsNoSex and Gender InformationValueDate RecordedSex Assigned at BirthNot on fileLegal PwwJjnpjv64/06/2015 12:01 PM EDTGender IdentityNot on fileSexual OrientationNot on file Last Filed Vital Signs Vital SignReadingTime TakenCommentsBlood Xtcayhfi716/6304/22/2024 4:33 PM EDT Nuily922904/22/2024 4:32 PM DZKWsezpsrncsg90.7 ??C (98.1 ??F)04/22/2024 4:32 PM EDTRespiratory Kuoi0963 4:32 PM EDTOxygen Ltmxzrohjv169%04/22/2024 4:32 PM EDTInhaled Oxygen Concentration--Wphhyo54.9 kg (185 lb)04/13/2024 4:00 PM EDT Biqvvr674.4 cm (5')04/13/2024 4:00 PM EDTBody Mass Index36.131 4:00 PM EDT Plan of Treatment Health MaintenanceDue DateLast DoneCommentsDepression Mltjpjdlg69/30/1960Zoster (Shingles) Vaccine (1 of 2)02/04/1998Fall Risk Wgvgwykio49/30/2013RSV ( or age 60+ yrs) (1 - 1-dose 75+ series)3COVID-19 Vaccine (3 - 2024- season)507/03/2021, 12/16/2020Influenza Dtedjqe04/01/2025Tobacco Cvsswxccy48/06/6910704DTaP,Tdap and Td Vaccines (3 - Td or Tdap) , 03/18/2016 Medical Devices Not on file Insurance Care Teams Team MemberRelationshipSpecialtyStart DateEnd Date Rosmery Hernandez DO [address] [place] [address] PCP - GeneralFamily Mjdptpdp91/6/24
--- NOTE | 2025-05-19 10:22 | CT_ITS ---
[address] [address] Patient Name: MEENA NUNEZ MRN: [id number] date: 1950 Sex: F Assigned Patient Location: LAB Current Patient Location: LAB Accession/Order Number: [id number] Exam Date: 05/19/2025 10:30 Report Date: 05/19/2025 12:07 At the request of: LAN LABOY Procedure: CT angio chest CTA CHEST WITH CONTRAST CLINICAL HISTORY: Follow-up Pulmonary Embolism COMPARISON: 02/06/2025 TECHNIQUE: Spiral images were obtained through the chest following intravenous administration of 100 mL of Omnipaque 350. Images were reviewed using both narrow and wide window settings. Sagittal, coronal and 3 D volume-rendered reconstructions were performed and reviewed. This CT exam was performed using one or more following dose reduction techniques: Automated exposure control, adjustment of the mA and/or kV according to patient size, or use of iterative reconstruction technique. FINDINGS: The heart is normal in size. There is no pericardial effusion. No aortic aneurysm or dissection is seen. There is mild plaque at the aortic arch, descending aorta and proximal great vessels. There is adequate opacification of the pulmonary arteries. No emboli are currently identified. No pathologic lymphadenopathy is seen. Slight dextroscoliotic curvature and mild endplate spurring are seen at the spine. There is no developing consolidation, effusion or discrete soft tissue nodules. No pneumothorax is seen. Limited cuts through the upper abdomen show no contributory abnormality. CT/CT angio chest IMPRESSION: NO RESIDUAL PULMONARY EMBOLISM. NO ACUTE INTRATHORACIC FINDINGS. Impression dictated by: Patricia Jane M.D. 05/19/2025 12:07 PM Dictation Location: [place] [address] Electronically authenticated by: [id number] Y Date: 05/19/2025 12:07
[2025-05-19 10:29] LABS: Estimated GFR (African America >60 (>=60 mL/min/1.73m^2); Estimated GFR (Non-African Ame 57 (>=60 mL/min/1.73m^2)
== END 2025-05-19 10:07 | disposition home or self-care (01) ==
LOC: LAB 10:07
PROVIDERS: Pathology Anatomic Pathology & Clinical Pathology
DX: Z86.711 Personal history of pulmonary embolism (principal)
CPT/HCPCS: 36415; 71275; 82565; Q9967